=== PATIENT | female | born 1940 | race Two or more races ===

== ENCOUNTER 2025-05-11 07:48 | Inpatient (IN) | payer MEDICAID, OTHER ==
[2025-05-11] VITALS (16 sets, daily range): BP systolic 112–163; BP diastolic 44–114; PULSE 14–108; RESP 12–23; TEMP 97.9–102.4; O2SAT 92–100
[~2025-05-11] VITALS: Ht 149.9 cm; Wt 58.6 kg
[2025-05-11 08:30] LABS: Hematocrit 29.8 % (36.0-46.0); Hemoglobin 10.0 g/dL (12.2-16.2); Mean Corpuscular Hemoglobin 29.5 pg (28.0-32.0); Mean Corpuscular Volume 88.1 fL (80.0-100.0); Nucleated Red Blood Cells % 0.0 %
[2025-05-11 08:41] LABS: Chloride 100 mmol/L (98-107); Potassium 5.1 mmol/L (3.5-5.1)
[2025-05-11 08:42] LABS: Anion Gap 11 (5-15); Calcium 9.7 mg/dL (8.7-10.4)
[2025-05-11 08:44] LABS: Carbon Dioxide 20 mmol/L (20-31); Sodium 131 mmol/L (136-145)
--- NOTE | 2025-05-11 08:44 | ED.PDOC ---
GI ASSESSMENT HPI Comments 85 year old female with a Hx of DM, and HTN was BIB daughter for the c/c of diffuse and RUQ ABD pain w/ associated N/V. Daughter states that pt symptoms have been onset since 10pm last night, and has no alleviating factors at this time. Pt is also noted to have Bilateral Pedal Edema at this time. No other associated symptoms, modifiers, recent injuries or sick contacts present at this time. Chief Complaint: Abdominal Pain Time Seen by MD: 08:39 Reviewed Notes: Nurses Notes, Medications, Allergies Allergies: Coded Allergies: NO KNOWN ALLERGIES (Unverified , 05/11/25) Information Source: Patient, Relative (Child) Mode of Arrival: Ambulatory Timing: Hours Duration: Since onset, Hours Prehospital treatment: None Quality: Aching, Cramping, Sharp Vomitus: Watery Stool: Normal Recent: None Recent Hx of: Diabetes Pain Location: Diffuse, RUQ Modifying Factors: Exertion, Food, Position, Movement Associated sign and symptoms: Nausea, Vomiting, Abdominal Pain Past Medical History PAST MEDICAL HISTORY: DM, HTN Family History Family History: Unknown Social History Smoker: Non-Smoker Alcohol: Denies ETOH Use Drugs: Denies Drug Use Lives In: Home Constitutional: denies: chills, diaphoresis, fatigue, fever, malaise, sweats, weakness, others EENTM: denies: blurred vision, double vision, ear bleeding, ear discharge, ear drainage, ear pain, ear ringing, eye pain, eye redness, hearing loss, mouth pain, mouth swelling, nasal discharge, nose bleeding, nose congestion, nose pain , photophobia, tearing, throat pain, throat swelling, voice changes, others Respiratory: denies: cough, hemoptysis, orthopnea, SOB at rest, shortness of breath, SOB with excertion, stridor, wheezing, others Cardiovascular: denies: chest pain, dizzy spells, diaphoresis, Dyspnea on exertion, edema, irregular heart beat, left arm pain, lightheadedness, palpitations, PND, syncope, others Gastrointestinal: reports: abdominal pain, nausea, vomiting; denies: abdomen distended, blood streaked bowels, constipated, diarrhea, dysphagia, difficulty swallowing, hematemesis, melena, poor appetite, poor fluid intake, rectal bleeding, rectal pain, others Genitourinary: denies: abnormal vagina bleeding, burning, dyspareunia, dysuria, flank pain, frequency, hematuria, incontinence, pain, , vagina discharge, urgency, others Neurological: denies: dizziness, fainting, headache, left sided numbness, left sided weakness, numbness, paresthesia, pre-existing deficit, right sided nu mbness, right sided weakness, seizure, speech problems, tingling, tremors, weakness, others Musculoskeletal: denies: back pain, gout, joint pain, joint swelling, muscle pain, muscle stiffness, neck pain, others Integumetry: denies: bruises, change in color, change in hair/nails, dryness, laceration, lesions, lumps, rash, wounds, others Allergic/Immunocompromised: denies: Difficulty Healing, Frequent Infections, Hives, Itching, others Hematologic/Lymphatic: denies: anemia, blood clots, easy bleeding, easy bruising, swollen glands, others Endocrine: denies: excessive hunger, excessive sweating, excessive thirst, excessive urination, flushing, intolerance to cold, intolerance to heat, unexplained weight gain, unexplained weight loss, others Psychiatric: denies: anxiety, bipolar disorder, depression, hopeless, panic disorder, schizophrenia, sleepless, suicidal, others All Other Systems: Reviewed and Negative Physical Exam General Appearance: Moderate Distress, Normal HEENT: Normal ENT Inspection, Pharynx Normal, TMs Normal Neck: Full Range of Motion, Non-Tender, Normal, Normal Inspection Respiratory: Chest Non-Tender, Lungs Clear, No Accessory Muscle Use, No Respiratory Distress, Normal Breath Sounds Cardiovascular: No Edema, No JVD, No Murmur, No Gallop, Normal Peripheral Pulses, Regular Rate/Rhythm Breast Exam: Deferred Gastrointestinal: No Organomegaly, Non Tender, No Pulsatile Mass, Normal Bowel Sounds, Soft Genitalia: Deferred Pelvic: Deferred Rectal: Deferred Extremities: No calf tenderness, Normal capillary refill, Normal range of motion, Non-tender, Pedal edema Musculoskeletal : Apperance: Normal Neurologic: Alert, 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 Was a procedure done?: No GI differential Dx Differential Diagnosis: Bowel Obstruction, Cholangitis, Cholecystitis, Constipation, Diverticular disease, Esophagitis, Gastritis/PUD, Gastroenteritis, Hernia, Inflammatory BD, Ischemic Bowel, Ovarian cyst/torsion, Pancreatitis, Urinary Obstruction, UTI, Urolithiasis, Dehydration, Electrolyte Imbalance, Food Poisoning X-Ray, Labs, Meds, VS Vital Signs Date Time Temp Pulse Resp B/P (MAP) Pulse Ox O2 Delivery O2 Flow Rate FiO2 05/11/25 10:14 106/37 05/11/25 10:00 98.8 61 16 106/37 (60) 96 98.8 05/11/25 09:46 56 16 132/58 05/11/25 09:04 53 20 134/58 05/11/25 08:56 53 20 96 Room Air* 0 21 05/11/25 08:53 99.1 54 20 145/57 (86) 95 99.1 05/11/25 08:06 98.0 57 18 156/63 (94) 98 98.0 Lab Test 05/11/25 10:55 05/11/25 08:20 05/11/25 08:06 Range/Units Lactic Acid Level Pending White Blood Count 17.6 H 4.4-10.8 10^3/uL Red Blood Count 3.38 L 4.0-5.20 10^6/uL Hemoglobin 10.0 L 12.2-16.2 g/dL Hematocrit 29.8 L 36.0-46.0 % Mean Corpuscular Volume 88.1 80.0-100.0 fL Mean Corpuscular Hemoglobin 29.5 28.0-32.0 pg Mean Corpuscular Hemoglobin Concent 33.5 32.0-36.0 g/dL Red Cell Distribution Width 15.3 H 11.8-14.3 % Platelet Count 286 140-450 10^3/uL Mean Platelet Volume 7.8 6.9-10.8 fL Neutrophils (%) (Auto) 90.4 H 37.0-80.0 % Lymphocytes (%) (Auto) 3.3 L 10.0-50.0 % Monocytes (%) (Auto) 5.9 0.0-12.0 % Eosinophils (%) (Auto) 0.2 0.0-7.0 % Basophils (%) (Auto) 0.2 0.0-2.0 % Neutrophils # (Auto) 15.9 H 1.6-8.6 10 ^3/uL Lymphocytes # (Auto) 0.6 0.4-5.4 10 ^3/uL Monocytes # (Auto) 1.0 0-1.3 10 ^3/uL Eosinophils # (Auto) 0 0-0.8 10 ^3/uL Basophils # (Auto) 0 0-0.2 10 ^3/uL Nucleated Red Blood Cells 0.0 % Prothrombin Time 10.2 9.3-11.8 sec Prothrombin Time INR 0.96 0.9-1.15 Activated Partial Thromboplast Time 27.5 24.5-34.5 SEC Sodium Level 131 L 136-145 mmol/L Potassium Level 5.1 3.5-5.1 mmol/L Chloride Level 100 98-107 mmol/L Carbon Dioxide Level 20 20-31 mmol/L Anion Gap 11 5-15 Blood Urea Nitrogen 50 H 9-23 mg/dL Creatinine 2.69 H 0.550-1.02 mg/dL Glomerular Filtration Rate Calc 17 >90 mL/min BUN/Creatinine Ratio 18.6 10.0-20.0 Serum Glucose 124 H 74-106 mg/dL Calcium Level 9.7 8.7-10.4 mg/dL Urine Color Colorless Yellow Urine Clarity Turbid H Clear Urine pH 6.0 5.0-9.0 Urine Specific [place] 1.004 1.001-1.035 Urine Protein 1+ H Negative Urine Ketones Negative Negative Urine Blood 1+ H Negative /uL Urine Nitrite Negative Negative Urine Bilirubin Negative Negative Urine Urobilinogen Normal Negative mg/dL Urine Leukocyte Esterase 3+ Negative /uL Urine RBC 16 0 - 4 /hpf Urine WBC Clumps Present None Seen /hpf Urine Microscopic WBC 137 H 0-5 /HPF Urine Squamous Epithelial Cells Mod <5 /hpf Urine Bacteria Many H None Seen /hpf Urine Mucus Few None Seen Urine Glucose Normal Normal mg/dL Current Medications Medications (Trade) Dose Ordered Sig/Augustin Route Start Time Stop Time Status Last Admin Morphine Sulfate 2 mg ONCE ONCE IV 05/11/25 08:45 05/11/25 08:48 DC 05/11/25 09:04 Ondansetron HCl (Zofran) 4 mg ONCE ONCE IV 05/11/25 08:45 05/11/25 08:48 DC 05/11/25 09:03 Sodium Chloride 1,000 ml @ 1,000 mls/hr Q1H ONCE IV 05/11/25 08:45 05/11/25 09:44 DC 05/11/25 09:04 Vancomycin HCl 200 ml @ 200 mls/hr ONCE ONCE IV 05/11/25 09:00 05/11/25 09:59 DC 05/11/25 09:17 Sodium Chloride 1,000 ml @ 1,000 mls/hr Q1H ONCE IV 05/11/25 09:00 05/11/25 09:59 DC 05/11/25 09:55 Sodium Chloride 1,000 ml @ 150 mls/hr Q6H40M ONCE IV 05/11/25 09:00 05/11/25 15:39 05/11/25 11:05 Cefepime HCl 50 ml @ 50 mls/hr ONCE ONCE IV 05/11/25 09:30 05/11/25 10:29 DC 05/11/25 11:05 Furosemide (Lasix Injection) 20 mg ONCE ONCE IV 05/11/25 10:00 05/11/25 10:01 DC 05/11/25 10:14 PATIENT: NIA CONNOR ACCT: [id number] UNIT: [id number] : 1940 LOC: ER ROOM / BED: / AGE / SEX: 85 / F ADM STATUS: REG ER SERVICE [id number] ORDERING PHYSICIAN: JAELYN LOUIS MD PROCEDURE(s): CXRP - CHEST PORTABLE REASON: sob ORDER NUMBER(s): [id number], ACCESSION NUMBER(s): [id number] EXAM: XY CHEST PORTABLE HISTORY: sob COMPARISON: None TECHNIQUE: Portable AP view of the chest was performed. FINDINGS: There is mild interstitial prominence, greatest centrally. No pneumothorax or consolidative infiltrates. There is blunting of the left costophrenic angle. The heart is enlarged. IMPRESSION: 1. Cardiomegaly with mild interstitial prominence suggestive of CHF. 2. Blunting of the left costophrenic angle may be due to small pleural effusion or scarring. EXAM DESCRIPTION: CT CT AB PEL WO CON-NO ORAL OR IV CLINICAL HISTORY: colitis COMPARISON: None TECHNIQUE: CT abdomen and pelvis without IV contrast was performed. Coronal and sagittal MPR images were generated.CTDI/ DLP = 18.63 mGy / 919.64 mGy.cm Dose reduction technique with one or more of the following methods was performed: Automated exposure control, adjustment of the mA and/or kV according to patient size, use of iterative reconstruction technique FINDINGS: Lower chest: Bibasilar subsegmental atelectasis. Trace left pleural effusion. Coronary artery calcifications. Liver: Homogenous in attenuation. In the central hepatic dome there is a 3.5 x 3.6 cm hypodense lesion with large amount of calcification. Biliary: No calcified gallstones. No biliary ductal dilatation. Pancreas: No fat stranding or focal lesion. Spleen: Normal in size.. Adrenal glands: No nodularity. Kidneys: 13 mm calculus in the lower pole of the right kidney. Moderate right hydronephrosis with a 11 mm calculus in the mid right ureter. Severe left hydronephrosis with marked asymmetric left renal cortical thickening. 5mm calculus in the lower pole of the left kidney. 4 mm calculus in the proximal left ureter and an additional punctate calculus in the proximal left ureter. There is also a punctate calculus in the distal left ureter. 2.8cm exophytic hypodense lesion at the lower pole of the right kidney measuring slightly above fluid attenuation. Bladder: No bladder wall thickening. Air in the urinary bladder lumen, likely from recent instrumentation. Reproductive organs: Normal. Bowel: Mild wall thickening of the proximal descending colon adjacent to the fluid and gas collection. The small bowel demonstrates normal caliber and wall thickness. . Peritoneum: Posterior to the left kidney there is a 7.5 x 3.3 x 8.7 cm loculated fluid and gas collection which may communicate with the adjacent proximal descending colon. Vessels: Normal caliber abdominal aorta. Moderate to severe atherosclerotic calcifications.. Lymph nodes: No suspicious lymph nodes. Soft tissues: Unremarkable. . Osseous structures: No acute fracture or subluxation. No suspicious osseous lesions. Degenerative changes of the visualized thoracolumbar spine. IMPRESSION: 1. In the left upper quadrant posterior to the left kidney there is a 7.5 x 3.3 x 8.7 cm loculated fluid and gas collection with possible fistula to the ad jacent proximal descending colon. There is mild wall thickening of the descending colon at this region, suggesting inflammation. An underlying mass cannot be excluded 2. Moderate right hydronephrosis within 11 mm obstructing calculus in the mid right ureter. There is also a 13 mm non obstructive calculus in the right kidney. 3. Severe left hydronephrosis with marked renal cortical thickening suggesting chronic hydronephrosis. A few small calculi in the left kidney and ureter measuring up to 5 mm. 4. A 3.5 x 3.6 cm partially calcified lesion in the central liver, indeterminate. Recommend further evaluation with CT or MRI with IV contrast, liver protocol. 5. Moderate to severe atherosclerotic vascular disease. Coronary artery disease. Patient alert. Complaining of abdominal pain. Vitals stable. Answering questions. Kidney function elevated. WBC elevated. Hemoglobin anemia. Possible sepsis. Establish intravenous access. Was given fluids. Sepsis protocol. Possible CHF. Was given Lasix. Hold fluids. Time of 1ST Reevaluation: 09:10 Reevaluation 1ST: Unchanged Patient Education/Counseling: Diagnosis, Treatment, Need For Follow Up Family Education/Counseling: Diagnosis, Treatment, Need For Follow Up SEPSIS Sepsis Screen Date sepsis recognized/suspect: May 11, 2025 Time Sepsis recognized/suspect: 837 Recent Procedure: No On Antibiotic Therapy: No Respiratory Rate >20: No Heart Rate >90: No Temp<36 C (96.8 F) or >38.3 C: No SBP <90 or MAP <65 mmHG: No New Acute Mental Status Change: No Is the patient on CPAP, BIPAP,: No Physician Orders Chest Portable (05/11/25 08:59) Accucheck (05/11/25 08:59) Blood Culture (05/11/25 08:59) Cefepime 1gm/ 50ml (Maxipime 1gm/50ml) (05/11/25 22:00) Notify Md If Map <65 Or Bp<90 (05/11/25 08:59) If Map<65 Start Vasopressor (05/11/25 08:59) Sodium Chloride 0.9% (05/11/25 09:00) Ct Ab Pel Wo Con-No Oral Or Iv (05/11/25 09:50) Lactic Acid W/ Reflex Order (05/11/25 10:03) Vital Signs Date Time Temp Pulse Resp B/P (MAP) Pulse Ox O2 Delivery O2 Flow Rate FiO2 05/11/25 10:14 106/37 05/11/25 10:00 98.8 61 16 106/37 (60) 96 98.8 05/11/25 09:46 56 16 132/58 05/11/25 09:04 53 20 134/58 05/11/25 08:56 53 20 96 Room Air* 0 21 05/11/25 08:53 99.1 54 20 145/57 (86) 95 99.1 05/11/25 08:06 98.0 57 18 156/63 (94) 98 98.0 Laboratory Tests Test 05/11/25 08:20 05/11/25 10:55 White Blood Count 17.6 10^3/uL (4.4-10.8) H Lactic Acid Level Pending Medications Medications Dose Ordered Sig/Augustin Route Start Time Stop Time Status Last Admin Dose Admin Cefepime HCl 50 ml @ 50 mls/hr ONCE ONCE IV 05/11/25 09:30 05/11/25 10:29 DC 05/11/25 11:05 Furosemide 20 mg ONCE ONCE IV 05/11/25 10:00 05/11/25 10:01 DC 05/11/25 10:14 Morphine Sulfate 2 mg ONCE ONCE IV 05/11/25 08:45 05/11/25 08:48 DC 05/11/25 09:04 Ondansetron HCl 4 mg ONCE ONCE IV 05/11/25 08:45 05/11/25 08:48 DC 05/11/25 09:03 Sodium Chloride 1,000 ml @ 150 mls/hr Q6H40M ONCE IV 05/11/25 09:00 05/11/25 15:39 05/11/25 11:05 Sodium Chloride 1,000 ml @ 1,000 mls/hr Q1H ONCE IV 05/11/25 08:45 05/11/25 09:44 DC 05/11/25 09:04 Sodium Chloride 1,000 ml @ 1,000 mls/hr Q1H ONCE IV 05/11/25 09:00 05/11/25 09:59 DC 05/11/25 09:55 Vancomycin HCl 200 ml @ 200 mls/hr ONCE ONCE IV 05/11/25 09:00 05/11/25 09:59 DC 05/11/25 09:17 Departure 1 Departure Time of Disposition: 08:58 Impression: Primary Impression: CHF (congestive heart failure) Qualified Codes: I50.43 - Acute on chronic combined systolic (congestive) and diastolic (congestive) heart failure Additional Impression: Sepsis, unspecified organism Qualified Codes: A41.9 - Sepsis, unspecified organism Disposition: ADMITTED INPATIENT Admit to: Med Surg Condition: Guarded Critical Care Note Critical Care Time?: Yes (90 min-critical care time only) Critical care comment: Sepsis Stability Stability form required: No Heart Score Heart Score: Heart Score Response (Comments) Value History N/A 0 EKG N/A 0 Age N/A 0 Risk Factors N/A 0 Troponin N/A 0 Total 0 I personally scribed for JAELYN LOUIS MD ([email or web address]) on 05/11/25 at 08:43. Electronically submitted by Davon Altamirano ([email or web address]). I personally scribed for JAELYN LOUIS MD ([email or web address]) on 05/11/25 at 09:44. Electronically submitted by Davon Altamirano ([email or web address]). I personally scribed for JAELYN LOUIS MD ([email or web address]) on 05/11/25 at 11:20. Electronically submitted by Davon Altamirano ([email or web address]). JAELYN LOUIS MD May 11, 2025 08:43
[2025-05-11 08:47] LABS: BUN/Creatinine Ratio 18.6 (10.0-20.0); Blood Urea Nitrogen 50 mg/dL (9-23); Glucose 124 mg/dL (74-106)
[2025-05-11] MEDS: ONDANSETRON HCL 4 MG/2 ML VIAL IV ONE (09:03)
[2025-05-11] MEDS: MORPHINE SULFATE INJ 2 MG/ml SYRG IV ONE (09:04)
[2025-05-11] MEDS: SODIUM CHLORIDE 0.9% 1,000 ML IV ONE ×3 (09:04→11:05)
[2025-05-11] MEDS: VANCOMYCIN 1GM/200ML PM 200 ML IV ONE (09:17)
--- NOTE | 2025-05-11 09:26 | DVH ---
EXAM: XY CHEST PORTABLE HISTORY: sob COMPARISON: None TECHNIQUE: Portable AP view of the chest was performed. FINDINGS: There is mild interstitial prominence, greatest centrally. No pneumothorax or consolidative infiltrat es. There is blunting of the left costophrenic angle. The heart is enlarged. IMPRESSION: 1. Cardiomegaly with mild interstitial prominence suggestive of CHF. 2. Blunting of the left costophrenic angle may be due to small pleural effusion or scarring.
[2025-05-11 09:27] LABS: Urine Protein, UAD 1+ (Negative); Urine WBC Clumps PRESENT /hpf (None Seen)
[2025-05-11 09:42] LABS: INR 0.96 (0.9-1.15); Partial Thromboplastin Time 27.5 SEC (24.5-34.5); Prothrombin Time 10.2 sec (9.3-11.8)
[2025-05-11] MEDS: FUROSEMIDE 20 MG/2 ML VIAL IV ONE (10:14)
--- NOTE | 2025-05-11 10:44 | DVH ---
EXAM DESCRIPTION: CT CT AB PEL WO CON-NO ORAL OR IV CLINICAL HISTORY: colitis COMPARISON: None TECHNIQUE: CT abdomen and pelvis without IV contrast was performed. Coronal and sagittal MPR images were generat ed.CTDI/ DLP = 18.63 mGy / 919.64 mGy.cm Dose reduction technique with one or more of the following methods was performed: Automated exposure control, adjustment of the mA and/or kV according to patient size, use of iterative reconstruction te chnique FINDINGS: Lower chest: Bibasilar subsegmental atelectasis. Trace left pleural effusion. Coronary artery calcifi cations. Liver: Homogenous in attenuation. In the central hepatic dome there is a 3.5 x 3.6 cm hypodense lesio n with large amount of calcification. Biliary: No calcified gallstones. No biliary ductal dilatation. Pancreas: No fat stranding or focal lesion. Spleen: Normal in size.. Adrenal glands: No nodularity. Kidneys: 13 mm calculus in the lower pole of the right kidney. Moderate right hydronephrosis with a 1 1 mm calculus in the mid right ureter. Severe left hydronephrosis with marked asymmetric left renal c ortical thickening. 5mm calculus in the lower pole of the left kidney. 4 mm calculus in the proximal left ureter and an additional punctate calculus in the proximal left ureter. There is also a punctat e calculus in the distal left ureter. 2.8cm exophytic hypodense lesion at the lower pole of the righ t kidney measuring slightly above fluid attenuation. Bladder: No bladder wall thickening. Air in the urinary bladder lumen, likely from recent instrumenta tion. Reproductive organs: Normal. Bowel: Mild wall thickening of the proximal descending colon adjacent to the fluid and gas collection . The small bowel demonstrates normal caliber and wall thickness. . Peritoneum: Posterior to the left kidney there is a 7.5 x 3.3 x 8.7 cm loculated fluid and gas collec tion which may communicate with the adjacent proximal descending colon. Vessels: Normal caliber abdominal aorta. Moderate to severe atherosclerotic calcifications.. Lymph nodes: No suspicious lymph nodes. Soft tissues: Unremarkable. . Osseous structures: No acute fracture or subluxation. No suspicious osseous lesions. Degenerative c hanges of the visualized thoracolumbar spine. IMPRESSION: 1. In the left upper quadrant posterior to the left kidney there is a 7.5 x 3.3 x 8.7 cm loculated fl uid and gas collection with possible fistula to the adjacent proximal descending colon. There is mild wall thickening of the descending colon at this region, suggesting inflammation. An underlying mass cannot be excluded 2. Moderate right hydronephrosis within 11 mm obstructing calculus in the mid right ureter. There is also a 13 mm non obstructive calculus in the right kidney. 3. Severe left hydronephrosis with marked renal cortical thickening suggesting chronic hydronephrosis . A few small calculi in the left kidney and ureter measuring up to 5 mm. 4. A 3.5 x 3.6 cm partially calcified lesion in the central liver, indeterminate. Recommend further e valuation with CT or MRI with IV contrast, liver protocol. 5. Moderate to severe atherosclerotic vascular disease. Coronary artery disease.
[2025-05-11] MEDS: CEFEPIME 1GM/ 50ML 50 ML IV ONE (11:05)
[2025-05-11] MEDS ORDERED: ACETAMINOPHEN 325 MG TAB PO PRN (13:45)
[2025-05-11] MEDS ORDERED: NITROGLYCERIN 0.4 MG SL TAB SL PRN (13:45)
[2025-05-11] MEDS ORDERED: VANCOMYCIN PER PHARMACY 0 MG IV SCH (13:45)
[2025-05-11] MEDS ORDERED: ONDANSETRON HCL 4 MG/2 ML VIAL IV PRN (13:45)
[2025-05-11] MEDS ORDERED: MORPHINE SULFATE INJ 2 MG/ml SYRG IV PRN (13:45)
--- NOTE | 2025-05-11 13:50 | DVHINCON2 ---
Date of service: May 11, 2025 Referring Physician Debbi AUGUSTINE Reason for Consultation Acute kidney injury History of Present Illness Mrs. Mauro Pearce is a 85-year-old female who presented to the hospital with abdominal pain flank pain and nausea and vomiting. Her clinical course has been notable for diagnosis of kidney insufficiency with EGFR in the teens. Mild hyperkalemia. Current consultation was requested for ongoing surveillance of kidney function with clinical suspicion for volume depletion and finding of bilateral obstructive uropathy with ER evaluation. Patient was seen in the emergency department, had a family member at the bedside who is primarily Irish speaking. Patient was lying supine and currently in no acute distress. Most of the history was obtained through the chart. Past Medical History Hypertension Allergies: Coded Allergies: NO KNOWN ALLERGIES (Unverified , 05/11/25) Current Medications Current Medications Medications (Trade) Dose Ordered Sig/Augustin Route PRN Reason Start Time Stop Time Status Last Admin Cefepime HCl 50 ml @ 12.5 mls/hr HS IV 05/11/25 22:00 Review of Systems For review of systems unable to be obtained H&P Exam Vital Signs/I&O Vital Sign Date Time Temp Pulse Resp B/P (MAP) Pulse Ox O2 Delivery O2 Flow Rate FiO2 05/11/25 12:00 57 05/11/25 12:00 99.5 18 117/44 (68) 93 99.5 05/11/25 08:56 Room Air* 0 21 Physical Exam Gen: nad, lying supine heent: nc/at, mmm lungs: cta anteriorly cvs: no rub abd: soft, bowel sounds audible ext: no edema skin: no rash neuro: Somnolent Labs/Diagnostic Data Labs/Diagnostic Data Laboratory Tests Test 05/11/25 10:55 05/11/25 08:20 05/11/25 08:06 Range/Units Lactic Acid Level 1.0 0.4-2.0 mmol/L White Blood Count 17.6 H 4.4-10.8 10^3/uL Red Blood Count 3.38 L 4.0-5.20 10^6/uL Hemoglobin 10.0 L 12.2-16.2 g/dL Hematocrit 29.8 L 36.0-46.0 % Mean Corpuscular Volume 88.1 80.0-100.0 fL Mean Corpuscular Hemoglobin 29.5 28.0-32.0 pg Mean Corpuscular Hemoglobin Concent 33.5 32.0-36.0 g/dL Red Cell Distribution Width 15.3 H 11.8-14.3 % Platelet Count 286 140-450 10^3/uL Mean Platelet Volume 7.8 6.9-10.8 fL Neutrophils (%) (Auto) 90.4 H 37.0-80.0 % Lymphocytes (%) (Auto) 3.3 L 10.0-50.0 % Monocytes (%) (Auto) 5.9 0.0-12.0 % Eosinophils (%) (Auto) 0.2 0.0-7.0 % Basophils (%) (Auto) 0.2 0.0-2.0 % Neutrophils # (Auto) 15.9 H 1.6-8.6 10 ^3/uL Lymphocytes # (Auto) 0.6 0.4-5.4 10 ^3/uL Monocytes # (Auto) 1.0 0-1.3 10 ^3/uL Eosinophils # (Auto) 0 0-0.8 10 ^3/uL Basophils # (Auto) 0 0-0.2 10 ^3/uL Nucleated Red Blood Cells 0.0 % Prothrombin Time 10.2 9.3-11.8 sec Prothrombin Time INR 0.96 0.9-1.15 Activated Partial Thromboplast Time 27.5 24.5-34.5 SEC Sodium Level 131 L 136-145 mmol/L Potassium Level 5.1 3.5-5.1 mmol/L Chloride Level 100 98-107 mmol/L Carbon Dioxide Level 20 20-31 mmol/L Anion Gap 11 5-15 Blood Urea Nitrogen 50 H 9-23 mg/dL Creatinine 2.69 H 0.550-1.02 mg/dL Glomerular Filtration Rate Calc 17 >90 mL/min BUN/Creatinine Ratio 18.6 10.0-20.0 Serum Glucose 124 H 74-106 mg/dL Calcium Level 9.7 8.7-10.4 mg/dL Urine Color Colorless Yellow Urine Clarity Turbid H Clear Urine pH 6.0 5.0-9.0 Urine Specific [place] 1.004 1.001-1.035 Urine Protein 1+ H Negative Urine Ketones Negative Negative Urine Blood 1+ H Negative /uL Urine Nitrite Negative Negative Urine Bilirubin Negative Negative Urine Urobilinogen Normal Negative mg/dL Urine Leukocyte Esterase 3+ Negative /uL Urine RBC 16 0 - 4 /hpf Urine WBC Clumps Present None Seen /hpf Urine Microscopic WBC 137 H 0-5 /HPF Urine Squamous Epithelial Cells Mod <5 /hpf Urine Bacteria Many H None Seen /hpf Urine Mucus Few None Seen Urine Glucose Normal Normal mg/dL Assessment IMP: 1) Hemodynamically mediated AARTI/VMN possible prerenal state and obstructive uropathy. 2) CKD ? 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 - we will check serial chemistry panels, anticipate improvement in metabolic Derangements with conservative therapy. Thank you for the consultation. Plan discussed with: JOSE Liu MD May 11, 2025 13:50
--- NOTE | 2025-05-11 14:12 | DVHHP2 ---
History of Present Illness Reason for Visit: Abdominal pain History of Present Illness Meri Cardoso is an 85-year-old female with past medical history of hypertension, and diabetes, who came to the hospital for abdominal pain. The patient states the pain began last night about 2200 in her RUQ. She denies any pain, nausea, or vomiting, prior to last night. States she has noticed needing to go to the bathroom more frequently and having less urine, denies dysuria. Patient denies any knowledge of having kidney stones or having them in the past. Patient is from [place], she is here visiting family and scheduled to go home on Wednesday05/14/2025. Cardiovascular: HTN Endocrine: Diabetes Smoke: No ALCOHOL: none Drugs: None Lives: with Family Review of Systems Constitutional: Yes: Weakness; No: Fever, Chills, Sweats, Malaise, Other Eyes: No: Pain, Vision change, Conjunctivae inflammation, Eyelid inflammation, Other, Redness ENT: No: Ear pain, Ear discharge, Nose pain, Nose discharge, Nose congestion, Mouth pain, Mouth swelling, Throat pain, Throat swelling, Other Respiratory: No: Cough, Dry, Shortness of breath, SOB with excertion, Wheezing, Hemoptysis, Pleuritic Pain, Sputum, Wheezing, Other Cardiovascular: No: Chest Pain, Palpitations, Orthopnea, Paroxysmal Noc. Dyspnea, Edema, Lt Headedness, Other Gastrointestinal: Abdominal Pain; No: Nausea, Vomiting, Diarrhea, Constipation, Melena, Hematochezia, Other Genitourinary: No Dysuria; Frequency; No Incontinence, No Hematuria, No Retention; Other (less urine) Musculoskeletal: No: other, neck pain, shoulder pain, arm pain, back pain, hand pain, leg pain, foot pain Skin: No: Rash, Lesions, Jaundice, Bruising, Other Neurological: No: Weakness, Numbness, Incoordination, Change in speech, Confusion, Seizures, Other Allergies: Coded Allergies: NO KNOWN ALLERGIES (Unverified , 05/11/25) Medications Current Medications Medications Dose Ordered Sig/Augustin Route Start Time Stop Time Status Last Admin Dose Admin Cefepime HCl 50 ml @ 12.5 mls/hr HS IV 05/11/25 22:00 Acetaminophen/ Hydrocodone Bitart 1 tab Q4HP PRN PO 05/11/25 13:45 UNV Ondansetron HCl 4 mg Q4HP PRN IV 05/11/25 13:45 UNV Docusate Sodium 100 mg BIDPRN PRN PO 05/11/25 13:45 UNV Acetaminophen 650 mg Q6HP PRN PO 05/11/25 13:45 UNV Morphine Sulfate 2 mg Q4HPRN PRN IV 05/11/25 13:45 UNV Nitroglycerin 0.4 mg Q5MINP PRN SL 05/11/25 13:45 UNV Morphine Sulfate 2 mg Q30M PRN IV 05/11/25 13:45 UNV Vancomycin HCl 0 ml @ 0 mls/hr UD IV 05/11/25 13:45 UNV Sodium Bicarbonate 100 ml/Dextrose 1,100 ml @ 100 mls/hr Q11H IV 05/11/25 13:45 UNV Exam Vital Signs Vital Signs Date Time Temp Pulse Resp B/P (MAP) Pulse Ox O2 Delivery O2 Flow Rate FiO2 05/11/25 12:00 57 05/11/25 12:00 99.5 18 117/44 (68) 93 99.5 05/11/25 08:56 Room Air* 0 21 General Appearance: Alert, Oriented X3, Cooperative, moderate distress HEENT: Atraumatic, PERRLA Respiratory: Clear to auscultation, Normal air movement Cardiovascular: Regular rate, Normal S1, Normal S2, No murmurs Abdominal: Normal bowel sounds, Soft, Other (RUQ pain) Extremities: No clubbing, No cyanosis, No edema, Normal pulses Skin: No rashes, No breakdown, No significant lesion Neuro: Normal gait, Normal speech, Strength at 5/5 X4 ext, Normal tone Psych/Mental Status: Mental status NL, Mood NL Labs/Xrays Labs Test 05/11/25 10:55 05/11/25 08:20 05/11/25 08:06 Range/Units Lactic Acid Level 1.0 0.4-2.0 mmol/L White Blood Count 17.6 H 4.4-10.8 10^3/uL Red Blood Count 3.38 L 4.0-5.20 10^6/uL Hemoglobin 10.0 L 12.2-16.2 g/dL Hematocrit 29.8 L 36.0-46.0 % Mean Corpuscular Volume 88.1 80.0-100.0 fL Mean Corpuscular Hemoglobin 29.5 28.0-32.0 pg Mean Corpuscular Hemoglobin Concent 33.5 32.0-36.0 g/dL Red Cell Distribution Width 15.3 H 11.8-14.3 % Platelet Count 286 140-450 10^3/uL Mean Platelet Volume 7.8 6.9-10.8 fL Neutrophils (%) (Auto) 90.4 H 37.0-80.0 % Lymphocytes (%) (Auto) 3.3 L 10.0-50.0 % Monocytes (%) (Auto) 5.9 0.0-12.0 % Eosinophils (%) (Auto) 0.2 0.0-7.0 % Basophils (%) (Auto) 0.2 0.0-2.0 % Neutrophils # (Auto) 15.9 H 1.6-8.6 10 ^3/uL Lymphocytes # (Auto) 0.6 0.4-5.4 10 ^3/uL Monocytes # (Auto) 1.0 0-1.3 10 ^3/uL Eosinophils # (Auto) 0 0-0.8 10 ^3/uL Basophils # (Auto) 0 0-0.2 10 ^3/uL Nucleated Red Blood Cells 0.0 % Prothrombin Time 10.2 9.3-11.8 sec Prothrombin Time INR 0.96 0.9-1.15 Activated Partial Thromboplast Time 27.5 24.5-34.5 SEC Sodium Level 131 L 136-145 mmol/L Potassium Level 5.1 3.5-5.1 mmol/L Chloride Level 100 98-107 mmol/L Carbon Dioxide Level 20 20-31 mmol/L Anion Gap 11 5-15 Blood Urea Nitrogen 50 H 9-23 mg/dL Creatinine 2.69 H 0.550-1.02 mg/dL Glomerular Filtration Rate Calc 17 >90 mL/min BUN/Creatinine Ratio 18.6 10.0-20.0 Serum Glucose 124 H 74-106 mg/dL Calcium Level 9.7 8.7-10.4 mg/dL Urine Color Colorless Yellow Urine Clarity Turbid H Clear Urine pH 6.0 5.0-9.0 Urine Specific [place] 1.004 1.001-1.035 Urine Protein 1+ H Negative Urine Ketones Negative Negative Urine Blood 1+ H Negative /uL Urine Nitrite Negative Negative Urine Bilirubin Negative Negative Urine Urobilinogen Normal Negative mg/dL Urine Leukocyte Esterase 3+ Negative /uL Urine RBC 16 0 - 4 /hpf Urine WBC Clumps Present None Seen /hpf Urine Microscopic WBC 137 H 0-5 /HPF Urine Squamous Epithelial Cells Mod <5 /hpf Urine Bacteria Many H None Seen /hpf Urine Mucus Few None Seen Urine Glucose Normal Normal mg/dL EXAM: XY CHEST PORTABLE FINDINGS: There is mild interstitial prominence, greatest centrally. No pneumothorax or consolidative infiltrates. There is blunting of the left costophrenic angle. The heart is enlarged. IMPRESSION: 1. Cardiomegaly with mild interstitial prominence suggestive of CHF. 2. Blunting of the left costophrenic angle may be due to small pleural effusion or scarring. CT CT AB PEL WO CON-NO ORAL OR IV FINDINGS: Lower chest: Bibasilar subsegmental atelectasis. Trace left pleural effusion. Coronary artery calcifications. Liver: Homogenous in attenuation. In the central hepatic dome there is a 3.5 x 3.6 cm hypodense lesion with large amount of calcification. Biliary: No calcified gallstones. No biliary ductal dilatation. Pancreas: No fat stranding or focal lesion. Spleen: Normal in size.. Adrenal glands: No nodularity. Kidneys: 13 mm calculus in the lower pole of the right kidney. Moderate right hydronephrosis with a 11 mm calculus in the mid right ureter. Severe left hydronephrosis with marked asymmetric left renal cortical thickening. 5mm calculus in the lower pole of the left kidney. 4 mm calculus in the proximal left ureter and an additional punctate calculus in the proximal left ureter. There is also a punctate calculus in the distal left ureter. 2.8cm exophytic hypodense lesion at the lower pole of the right kidney measuring slightly above fluid attenuation. Bladder: No bladder wall thickening. Air in the urinary bladder lumen, likely from recent instrumentation. Reproductive organs: Normal. Bowel: Mild wall thickening of the proximal descending colon adjacent to the fluid and gas collection. The small bowel demonstrates normal caliber and wall thickness. . Peritoneum: Posterior to the left kidney there is a 7.5 x 3.3 x 8.7 cm loculated fluid and gas collection which may communicate with the adjacent proximal descending colon. Vessels: Normal caliber abdominal aorta. Moderate to severe atherosclerotic calcifications.. Lymph nodes: No suspicious lymph nodes. Soft tissues: Unremarkable. . Osseous structures: No acute fracture or subluxation. No suspicious osseous lesions. Degenerative changes of the visualized thoracolumbar spine. IMPRESSION: 1. In the left upper quadrant posterior to the left kidney there is a 7.5 x 3.3 x 8.7 cm loculated fluid and gas collection with possible fistula to the adjacent proximal descending colon. There is mild wall thickening of the descending colon at this region, suggesting inflammation. An underlying mass cannot be excluded 2. Moderate right hydronephrosis within 11 mm obstructing calculus in the mid right ureter. There is also a 13 mm non obstructive calculus in the right kidney. 3. Severe left hydronephrosis with marked renal cortical thickening suggesting chronic hydronephrosis. A few small calculi in the left kidney and ureter measuring up to 5 mm. 4. A 3.5 x 3.6 cm partially calcified lesion in the central liver, indeterminate. Recommend further evaluation with CT or MRI with IV contrast, liver protocol. 5. Moderate to severe atherosclerotic vascular disease. Coronary artery disease. Assessment/Plan Assessment/Plan Assessment: Hydronephrosis due to obstruction of ureter, Acute kidney injury, Possible fistula, Bilateral kidney stones, SIRS, Anemia, UTI, Diabetes, Hypertension, Plan: Admit to [facility], Surgical consult, Nephrology consult, Urology consult, IR consult, NPO, IV antibiotics, IV hydration, Pain management, Accu checks Q 6 hours with sliding scale, Home medications held at this time, Plan discussed with: Patient My Orders Orders - SONIDO RESTREPO Procedure Category Date Status Time *Dr. Amato Group CONS 05/11/25 Transmitted -[place] 11:48 * Radiologist Consult CONS 05/11/25 Transmitted 11:48 Admit ADMIT 05/11/25 Transmitted 13:38 Code Status CODE 05/11/25 Transmitted 13:38 Hydrocodone-Acet PHA 05/11/25 Logged 5/325mg Tab ([place] 13:45 Ondansetron Hcl PHA 05/11/25 Logged (Zofran) 13:45 Docusate Sodium PHA 05/11/25 Logged Capsule (Colace 13:45 Complete Blood Count LAB 05/12/25 Verified 04:00 Comprehensive LAB 05/12/25 Verified Metabolic Panel 04:00 Npo (Nothing By DIET 05/11/25 Transmitted Mouth) Diet Dinner Echo 2d Mode Cardiac US 05/11/25 Logged DOP 13:38 Condition: Serious [facility] 05/11/25 In Process 13:38 Acetaminophen Tablet [facility] 05/11/25 Logged (Tylenol Tablet) 13:45 Morphine Sulfate [facility] 05/11/25 Logged Injection 13:45 Nitroglycerin [facility] 05/11/25 Logged Sublingual (Ntrostat 13:45 Morphine Sulfate [facility] 05/11/25 Logged Injection 13:45 Stat Ekg For Chest [facility] 05/11/25 In Process Pain 13:38 Notify Md Of Changes [facility] 05/11/25 In Process From Base 13:38 Business Administration Professor For [facility] 05/11/25 In Process 24 Hours 13:38 Emergency Dysrhythmia [facility] 05/11/25 In Process Protocol 13:38 Rhythm Strips Once [facility] 05/11/25 In Process Every Shift 13:38 Oxygen By Nasal 05/11/25 Transmitted Cannula 13:38 Electrocardigram EKG 05/11/25 Logged 13:38 Vancomycin Per [facility] 05/11/25 Logged Pharmacy 13:45 D5w 5% (Dextrose 5%) [facility] 05/11/25 Logged W/Sodium Bicarb 50m 13:45 Date of Service: May 11, 2025 Billing Provider: SONIDO RESTREPO Common Visit Codes: [id number] INP/OBS CARE (MOD) SONIDO RESTREPO May 11, 2025 14:12
[2025-05-11] MEDS: VANCOMYCIN 1GM/250ML KIT 250 ML IV ONE (15:48)
[2025-05-11] MEDS: SODIUM BICARB 50mEq/50ml Vial 100 ML in D5W 5% 1,000 ML IV SCH (17:21)
[2025-05-11] MEDS: ACETAMINOPHEN 650 MG RECT SUPP PR PRN (17:52)
[2025-05-11] MEDS: InsuLIN REG 1unit/0.01ml Soln (100units/ml) SC SCH (18:00)
[2025-05-11 19:02] LABS: Albumin 3.2 g/dL (3.2-4.8); Alkaline Phosphatase 71 U/L (46-116); Anion Gap 12 (5-15); BUN/Creatinine Ratio 19.0 (10.0-20.0); Chloride 106 mmol/L (98-107)
[2025-05-11 19:03] LABS: Bilirubin, Total 0.6 mg/dL (0.2-1.0)
[2025-05-11] MEDS: MORPHINE SULFATE INJ 2 MG/ml SYRG IV PRN (19:06)
[2025-05-11 19:08] LABS: Alanine Aminotransferase 9 U/L (7-40); Blood Urea Nitrogen 52 mg/dL (9-23); Calcium 7.9 mg/dL (8.7-10.4); Carbon Dioxide 16 mmol/L (20-31); Glucose 187 mg/dL (74-106); Sodium 134 mmol/L (136-145); Total Protein 5.4 g/dL (5.7-8.2)
[2025-05-11 19:10] LABS: Potassium 5.6 mmol/L (3.5-5.1)
--- NOTE | 2025-05-11 19:40 | DVHNC2 ---
Procedure - ULTRASOUND-GUIDED LEFT SUBCLAVIAN INTERNAL JUGULAR CENTRAL VENOUS CANNULATION CPT Codes: 80845 (ultrasound guidance) 24256 (insertion of non-tunneled centrally inserted central venous catheter) 30875 (CXR interpretation) Global Risk Management Director: Gi Fair out time: 1924 Patient medications and allergies reviewed. The risks and benefits of the pr ocedure and the sedation options and risk were discussed with the patient's healthcare proxy. All questions were answered and informed consent was obtained. Patient identification and proposed procedure were verified prior to the procedure by the physician, and a nurse in the patient's room. The heart rate, respiratory rate, oxygen saturations, blood pressure, adequacy of pulmon kathy ventilation, and response to care were monitored throughout the procedure. The physical status of the patient was reassessed after the procedure. Date: 05/11/2025 PHYSICIAN: Ga Hooker PREOPERATIVE DIAGNOSIS: poor venous access POSTOPERATIVE DIAGNOSIS: Poor venous access PROCEDURE PERFORMED: Limited Ultrasound-guided LEFT SUBCLAVIAN jugular central line placement. ANESTHESIA: 2 mL of 1% lidocaine plain. ESTIMATED BLOOD LOSS: less than 5 mL. SPECIMENS: None. COMPLICATIONS: None. INDICATIONS FOR PROCEDURE: The patient is in need of large bore IV access for administration of fluids, including blood products and vasoactive drugs, possible transvenous cardiac pacing and CVP monitoring for hemodynamic instability. DESCRIPTION OF PROCEDURE IN DETAIL: The patient was lying in the Trendelenburg position with head turned 30 degrees away from the insertion site. The skin was thoroughly sponged with chlorhexidine and allowed to dry. All persons involved were shielded with hair nets, face masks and sterile gowns. With sterile-gloved hands the right neck area was draped with the large disposable sterile field provided in the pre-manufactured kit. The skin and subcutaneous tissues superficial to the LEFT SUBCLAVIAN vein were anesthetized with 2 mL of 1% lidocaine. The LEFT SUBCLAVIAN vein was identified on ultrasound using the linear ultrasound probe in the transverse orientation. The subclavian artery was identified and avoided utilizing color-flow. The subclavian vein was then placed in the center of the ultrasound field and compressed for patency. A movement artifact was identified as the needle was advanced through the skin and advanced toward the vessel. A real time hyperechoic signal revealed visualization of vascular needle entry into the lumen as blood was noted to flashback in the syringe. The needle was then held in place while the guide wire was advanced. The needle was then removed. Direct visualization of guide wire location within the vein was noted on ultrasound indicating proper placement and was document in the electronic medical record chart. A skin dilator was advanced over the guidewire and removed, and the triple-lumen catheter was then advanced over the guide wire into proper position. The guide wire was removed and discarded. The ports were aspirated which showed good blood return and then carefully flushed with normal saline. The catheter was stabilized and sutured to the skin with 2-0 silk at 2 anchor points. A sterile bio-patch and dressing was placed over the catheter, including the insertion site. The patient tolerated the procedure well. A chest x-ray was ordered for position confirmation. I reviewed the image immediately after it was taken at bedside. Post-procedure chest x-ray demonstrates the central line in the superior vena at level of right cavito- atrial junction and no evidence of any pneumothorax. An image recording of the procedure accompanies the chart. GA HOOKER MD May 11, 2025 19:40
[2025-05-11] MEDS: ACCU-CHEK COMFORT CURVE STRIP VI SCH (19:43)
--- NOTE | 2025-05-11 20:14 | DVH ---
EXAM: XY CHEST PORTABLE CLINICAL HISTORY: central line placement TECHNIQUE: Single AP view of the chest WID: COMPARISON: XY CHEST PORTABLE on DOS: 05/11/25 FINDINGS: Lines and tubes: There is a left subclavian central venous catheter with the tip projecting over the right atrium Chest: Cardiomegaly and pulmonary vascular congestion. Calcified plaque projects over the aortic arch. No pleural effusion, pneumothorax, or consolidation. The osseous structures are grossly intact. IMPRESSION: Cardiomegaly and pulmonary vascular congestion. Left subclavian central venous catheter with tip projecting over the right atrium. No pneumothorax.
--- NOTE | 2025-05-11 20:15 | DVHINCON2 ---
Date of service: May 11, 2025 History of Present Illness 85-year-old female with a history of diabetes and chronic kidney disease admitted secondary to abdominal pain without fevers, chills, nausea or vomiting. On admission patient was noted to have leukocytosis with fever. Patient's CT of the abdomen and pelvis showed bilateral hydronephrosis with what appears to be a possible abscess posterior to the left kidney. Currently patient denies any abdominal pain. Past Medical History Hypertension. Diabetes. Kidney disease Past Surgical History None. Family History Noncontributory Social History Denies alcohol, tobacco, IV drug use Allergies: Coded Allergies: NO KNOWN ALLERGIES (Unverified , 05/11/25) Current Medications Current Medications Medications (Trade) Dose Ordered Sig/Augustin Route PRN Reason Start Time Stop Time Status Last Admin Cefepime HCl 50 ml @ 12.5 mls/hr HS IV 05/11/25 22:00 Acetaminophen/ Hydrocodone Bitart ([place] 5/325MG Tab) 1 tab Q4HP PRN PO MODERATE PAIN (4-6 PAIN SCALE) 05/11/25 13:45 Ondansetron HCl (Zofran) 4 mg Q4HP PRN IV NAUSEA / VOMITING 05/11/25 13:45 Docusate Sodium (Colace Capsule) 100 mg BIDPRN PRN PO FOR CONSTIPATION 05/11/25 13:45 Acetaminophen (Tylenol Tablet) 650 mg Q6HP PRN PO PAIN SCALE 1-3 OR TEMP>100.4 05/11/25 13:45 05/11/25 17:47 DC Morphine Sulfate 2 mg Q4HPRN PRN IV SEVERE PAIN (7-10 PAIN SCALE) 05/11/25 13:45 05/11/25 19:06 Nitroglycerin (Ntrostat Sublingual) 0.4 mg Q5MINP PRN SL FOR CHEST PAIN 05/11/25 13:45 Morphine Sulfate 2 mg Q30M PRN IV FOR CHEST PAIN 05/11/25 13:45 Vancomycin HCl 0 ml @ 0 mls/hr UD IV 05/11/25 13:45 Sodium Bicarbonate 100 ml/Dextrose 1,100 ml @ 100 mls/hr Q11H IV 05/11/25 13:45 05/11/25 17:21 Diagnostic Test (Pha) (Accu-Chek Comfort Curve T) 1 strip Q6HR 05/11/25 18:00 05/11/25 19:43 Insulin Human Regular (InsuLIN R) Q6HR SC 05/11/25 18:00 Dextrose 50 ml UD PRN IV Blood Sugar LESS THAN 60 05/11/25 14:00 Acetaminophen (Tylenol Suppository) 650 mg Q6HP PRN NM PAIN SCALE 1-3 OR TEMP>100.4 05/11/25 17:15 05/11/25 17:52 Metronidazole 100 ml @ 100 mls/hr Q8H IV 05/11/25 18:00 05/11/25 17:52 Vital Signs Vital Signs Date Time Temp Pulse Resp B/P (MAP) Pulse Ox O2 Delivery O2 Flow Rate FiO2 05/11/25 19:06 70 22 126/51 05/11/25 17:52 101.1 05/11/25 14:00 93 05/11/25 08:56 Room Air* 0 21 Physical Exam GEN: Elderly female in no acute distress. HEENT: Normocephalic atraumatic. Moist mucous membranes. Anicteric sclerae. CV: RRR Respiratory: CTAB ABD: Soft. Nontender nondistended. CT of the abdomen and pelvis: In the left upper quadrant posterior to the left kidney there was a 7.5 x 3.3 x 8.7 cm loculated fluid and gas collection with possible fistula to the adjacent proximal descending colon. There was mild wall thickening of the descending colon at this region suggesting inflammation. Moderate right hydronephrosis with a obstructing calculus. Severe left hydronephrosis with small calculi. 3.5 x 3.6 cm partially calcified lesion in the central liver. Labs/Diagnostic Data Labs Test 05/11/25 19:07 05/11/25 18:35 05/11/25 08:20 05/11/25 08:06 Range/Units POC Glucose 175 H 70-106 mg/dl Sodium Level 134 L 136-145 mmol/L Potassium Level 5.6 *H 3.5-5.1 mmol/L Chloride Level 106 98-107 mmol/L Carbon Dioxide Level 16 L 20-31 mmol/L Anion Gap 12 5-15 Blood Urea Nitrogen 52 H 9-23 mg/dL Creatinine 2.73 H 0.550-1.02 mg/dL Glomerular Filtration Rate Calc 17 >90 mL/min BUN/Creatinine Ratio 19.0 10.0-20.0 Serum Glucose 187 H 74-106 mg/dL Lactic Acid Level 1.2 0.4-2.0 mmol/L Calcium Level 7.9 L 8.7-10.4 mg/dL Total Bilirubin 0.6 0.2-1.0 mg/dL Aspartate Amino Transferase (AST) 17 13-40 U/L Alanine Aminotransferase (ALT) 9 7-40 U/L Alkaline Phosphatase 71 46-116 U/L Total Protein 5.4 L 5.7-8.2 g/dL Albumin 3.2 3.2-4.8 g/dL White Blood Count 17.6 H 4.4-10.8 10^3/uL Red Blood Count 3.38 L 4.0-5.20 10^6/uL Hemoglobin 10.0 L 12.2-16.2 g/dL Hematocrit 29.8 L 36.0-46.0 % Mean Corpuscular Volume 88.1 80.0-100.0 fL Mean Corpuscular Hemoglobin 29.5 28.0-32.0 pg Mean Corpuscular Hemoglobin Concent 33.5 32.0-36.0 g/dL Red Cell Distribution Width 15.3 H 11.8-14.3 % Platelet Count 286 140-450 10^3/uL Mean Platelet Volume 7.8 6.9-10.8 fL Neutrophils (%) (Auto) 90.4 H 37.0-80.0 % Lymphocytes (%) (Auto) 3.3 L 10.0-50.0 % Monocytes (%) (Auto) 5.9 0.0-12.0 % Eosinophils (%) (Auto) 0.2 0.0-7.0 % Basophils (%) (Auto) 0.2 0.0-2.0 % Neutrophils # (Auto) 15.9 H 1.6-8.6 10 ^3/uL Lymphocytes # (Auto) 0.6 0.4-5.4 10 ^3/uL Monocytes # (Auto) 1.0 0-1.3 10 ^3/uL Eosinophils # (Auto) 0 0-0.8 10 ^3/uL Basophils # (Auto) 0 0-0.2 10 ^3/uL Nucleated Red Blood Cells 0.0 % Prothrombin Time 10.2 9.3-11.8 sec Prothrombin Time INR 0.96 0.9-1.15 Activated Partial Thromboplast Time 27.5 24.5-34.5 SEC Urine Color Colorless Yellow Urine Clarity Turbid H Clear Urine pH 6.0 5.0-9.0 Urine Specific [place] 1.004 1.001-1.035 Urine Protein 1+ H Negative Urine Ketones Negative Negative Urine Blood 1+ H Negative /uL Urine Nitrite Negative Negative Urine Bilirubin Negative Negative Urine Urobilinogen Normal Negative mg/dL Urine Leukocyte Esterase 3+ Negative /uL Urine RBC 16 0 - 4 /hpf Urine WBC Clumps Present None Seen /hpf Urine Microscopic WBC 137 H 0-5 /HPF Urine Squamous Epithelial Cells Mod <5 /hpf Urine Bacteria Many H None Seen /hpf Urine Mucus Few None Seen Urine Creatinine 11.55 L 30.0-125.0 mg/dL Urine Sodium 88 40-220 mmol/L Urine Glucose Normal Normal mg/dL Assessment 1. Bilateral hydronephrosis from obstructing calculi 2. Left upper quadrant fluid collection possible abscess posterior to the left kidney. Plan/Recommendation 1. Recommend broad-spectrum IV antibiotics 2. Patient is scheduled for bilateral ureteral stenting by [facility]rology [facility] 3. Recommend percutaneous drainage of left upper quadrant retroperitoneal fluid collection by IR on Wednesday. 4. Cardiology consultation for possible CHF and preoperative risks in case surgical intervention is necessary. However the chance of surgery in this situation is quite low if IR a successful. Plan discussed with: Patient, Daughter SHARONLEWIS MD May 11, 2025 20:15
--- NOTE | 2025-05-11 20:45 | DVHINCON2 ---
Date of service: May 11, 2025 Referring Physician [facility] Reason for Consultation bilateral obstruction kidneys,septicemia History of Present Illness 24 hour hx abdominal pain,signs of sepsis; CT shows bilateral ureteral stones with bilateral hydroureteronephrosis; left perirenal abscess Past Medical History known diabetic Past Surgical History na Allergies: Coded Allergies: NO KNOWN ALLERGIES (Unverified , 05/11/25) Current Medications Current Medications Medications (Trade) Dose Ordered Sig/Augustin Route PRN Reason Start Time Stop Time Status Last Admin Cefepime HCl 50 ml @ 12.5 mls/hr HS IV 05/11/25 22:00 Acetaminophen/ Hydrocodone Bitart ([place] 5/325MG Tab) 1 tab Q4HP PRN PO MODERATE PAIN (4-6 PAIN SCALE) 05/11/25 13:45 Ondansetron HCl (Zofran) 4 mg Q4HP PRN IV NAUSEA / VOMITING 05/11/25 13:45 Docusate Sodium (Colace Capsule) 100 mg BIDPRN PRN PO FOR CONSTIPATION 05/11/25 13:45 Acetaminophen (Tylenol Tablet) 650 mg Q6HP PRN PO PAIN SCALE 1-3 OR TEMP>100.4 05/11/25 13:45 05/11/25 17:47 DC Morphine Sulfate 2 mg Q4HPRN PRN IV SEVERE PAIN (7-10 PAIN SCALE) 05/11/25 13:45 05/11/25 19:06 Nitroglycerin (Ntrostat Sublingual) 0.4 mg Q5MINP PRN SL FOR CHEST PAIN 05/11/25 13:45 Morphine Sulfate 2 mg Q30M PRN IV FOR CHEST PAIN 05/11/25 13:45 Vancomycin HCl 0 ml @ 0 mls/hr UD IV 05/11/25 13:45 Sodium Bicarbonate 100 ml/Dextrose 1,100 ml @ 100 mls/hr Q11H IV 05/11/25 13:45 05/11/25 17:21 Diagnostic Test (Pha) (Accu-Chek Comfort Curve T) 1 strip Q6HR 05/11/25 18:00 05/11/25 19:43 Insulin Human Regular (InsuLIN R) Q6HR SC 05/11/25 18:00 Dextrose 50 ml UD PRN IV Blood Sugar LESS THAN 60 05/11/25 14:00 Acetaminophen (Tylenol Suppository) 650 mg Q6HP PRN [place] PAIN SCALE 1-3 OR TEMP>100.4 05/11/25 17:15 05/11/25 17:52 Metronidazole 100 ml @ 100 mls/hr Q8H IV 05/11/25 18:00 05/11/25 17:52 Review of Systems reviewed Vital Signs Vital Signs Date Time Temp Pulse Resp B/P (MAP) Pulse Ox O2 Delivery O2 Flow Rate FiO2 05/11/25 19:06 70 22 126/51 05/11/25 17:52 101.1 05/11/25 16:30 93 Room Air* 0 21 Labs/Diagnostic Data Labs Test 05/11/25 19:07 05/11/25 18:35 05/11/25 08:20 05/11/25 08:06 Range/Units POC Glucose 175 H 70-106 mg/dl Sodium Level 134 L 136-145 mmol/L Potassium Level 5.6 *H 3.5-5.1 mmol/L Chloride Level 106 98-107 mmol/L Carbon Dioxide Level 16 L 20-31 mmol/L Anion Gap 12 5-15 Blood Urea Nitrogen 52 H 9-23 mg/dL Creatinine 2.73 H 0.550-1.02 mg/dL Glomerular Filtration Rate Calc 17 >90 mL/min BUN/Creatinine Ratio 19.0 10.0-20.0 Serum Glucose 187 H 74-106 mg/dL Lactic Acid Level 1.2 0.4-2.0 mmol/L Calcium Level 7.9 L 8.7-10.4 mg/dL Total Bilirubin 0.6 0.2-1.0 mg/dL Aspartate Amino Transferase (AST) 17 13-40 U/L Alanine Aminotransferase (ALT) 9 7-40 U/L Alkaline Phosphatase 71 46-116 U/L Total Protein 5.4 L 5.7-8.2 g/dL Albumin 3.2 3.2-4.8 g/dL White Blood Count 17.6 H 4.4-10.8 10^3/uL Red Blood Count 3.38 L 4.0-5.20 10^6/uL Hemoglobin 10.0 L 12.2-16.2 g/dL Hematocrit 29.8 L 36.0-46.0 % Mean Corpuscular Volume 88.1 80.0-100.0 fL Mean Corpuscular Hemoglobin 29.5 28.0-32.0 pg Mean Corpuscular Hemoglobin Concent 33.5 32.0-36.0 g/dL Red Cell Distribution Width 15.3 H 11.8-14.3 % Platelet Count 286 140-450 10^3/uL Mean Platelet Volume 7.8 6.9-10.8 fL Neutrophils (%) (Auto) 90.4 H 37.0-80.0 % Lymphocytes (%) (Auto) 3.3 L 10.0-50.0 % Monocytes (%) (Auto) 5.9 0.0-12.0 % Eosinophils (%) (Auto) 0.2 0.0-7.0 % Basophils (%) (Auto) 0.2 0.0-2.0 % Neutrophils # (Auto) 15.9 H 1.6-8.6 10 ^3/uL Lymphocytes # (Auto) 0.6 0.4-5.4 10 ^3/uL Monocytes # (Auto) 1.0 0-1.3 10 ^3/uL Eosinophils # (Auto) 0 0-0.8 10 ^3/uL Basophils # (Auto) 0 0-0.2 10 ^3/uL Nucleated Red Blood Cells 0.0 % Prothrombin Time 10.2 9.3-11.8 sec Prothrombin Time INR 0.96 0.9-1.15 Activated Partial Thromboplast Time 27.5 24.5-34.5 SEC Urine Color Colorless Yellow Urine Clarity Turbid H Clear Urine pH 6.0 5.0-9.0 Urine Specific [place] 1.004 1.001-1.035 Urine Protein 1+ H Negative Urine Ketones Negative Negative Urine Blood 1+ H Negative /uL Urine Nitrite Negative Negative Urine Bilirubin Negative Negative Urine Urobilinogen Normal Negative mg/dL Urine Leukocyte Esterase 3+ Negative /uL Urine RBC 16 0 - 4 /hpf Urine WBC Clumps Present None Seen /hpf Urine Microscopic WBC 137 H 0-5 /HPF Urine Squamous Epithelial Cells Mod <5 /hpf Urine Bacteria Many H None Seen /hpf Urine Mucus Few None Seen Urine Creatinine 11.55 L 30.0-125.0 mg/dL Urine Sodium 88 40-220 mmol/L Urine Glucose Normal Normal mg/dL Assessment as above,bilateral ureteral stones with renal failure,septicemia Plan/Recommendation cytoscopy insertion of bilateral ureteral stents; IR to drain abscess Wednesday Plan discussed with: Patient, Daughter LAW VILLANUEVA MD May 11, 2025:45
[2025-05-11] MEDS ORDERED: PROPOFOL 10 MG/ML 20 ML IV ONE (20:49)
[2025-05-11] MEDS ORDERED: fentaNYL CITRATE 100 MCG/2 ML VL ONE (20:49)
[2025-05-11] MEDS ORDERED: MIDAZOLAM HCL 2MG/2ML 2ml VIAL (1mg/ml) ONE (20:49)
[2025-05-11] MEDS ORDERED: LIDOCAINE 2% (LOCAL ANESTH.) PF 5ml SDV ONE (20:49)
[2025-05-11] MEDS ORDERED: HYDROmorphone HCL 2 MG/ML VL/or syr IV PRN (21:30)
--- NOTE | 2025-05-11 22:00 | DVHOP2 ---
Operative Report - 2 Report Details Date: 05/11/25 Preop Diagnosis: bilateral ureteral stones,acute renal failure Postop Diagnosis: same Surgeon: Law Torres Anesthesiologist: Valerie Anesthesia: General Consent: The patient was informed of the risks and benefits of the procedure. These include but are not limited to complications of anesthesia, postoperative infection, incomplete relief of symptoms, recurrence of symptoms, damage to blood vessels, nerves and tendons, deep venous thrombosis, pulmonary embolism and possible need for repeat surgery in the future. Complications: no Estimated Blood Loss: no Indications for Surgery: septicemia, renal failure Name of Procedure Performed cystoscopy,insertion of bilateral ureteral stents Procedure Details Procedure Details: bladder neg; stents placed without problem 6 romanian 22 cm stents Condition Critical Disposition Acute Care Facility LAW TORRES MD May 11, 2025 22:00
[2025-05-11] MEDS: SODIUM BICARB 8.4% 50Meq/50ml SYR INJ IV ONE (23:46)
[2025-05-11] MEDS: DEXTROSE (50%) 50ML SYRG IV ONE (23:47)
[2025-05-11] MEDS: CALCIUM GLUC 1,000mg/50ml-NS 50 ML IV ONE (23:47)
[2025-05-11] MEDS: InsuLIN REG 1unit/0.01ml Soln (100units/ml) IV ONE (23:59)
[2025-05-12] VITALS (31 sets, daily range): BP systolic 101–146; BP diastolic 42–64; PULSE 52–76; RESP 12–24; TEMP 97.2–99; O2SAT 88–100
[2025-05-12] MEDS: CEFEPIME 1GM/ 50ML 50 ML IV SCH (00:03)
[2025-05-12] MEDS: ALBUTEROL SULF 2.5 MG/0.5ML(0.5%) NEB SOLN NEB ONE (00:08)
[2025-05-12 06:41] LABS: Mean Corpuscular Hemoglobin 29.0 pg (28.0-32.0); Nucleated Red Blood Cells % 0.0 %
--- NOTE | 2025-05-12 06:42 | DVHSR ---
APPROVED REPORT EXAM: Two-dimensional and M-mode echocardiogram with Doppler and color Doppler. Blood Pressure: 117/44 mmHg INDICATION Pre-Op lv function RISK FACTORS Height: 4'11, Weight: 137 DIMENSIONS LVDd3.9 (3.8-5.7cm)LA (2D)3.7 (1.9-4.0cm)Aortic Root3.4 (2.0-3.7cm) LVDs2.7 (2.5-4.0cm)LA (MM) (1.9-4.0cm)Aortic Cusp Exc1.9 (1.5-2.0cm) EF (%) 60.0 (55-70%)Rt. Atrium3.3 (1.9-4.0cm)Asc. Aorta cm IVSd1.0 (0.7-1.1cm)RV (D)4.0 (1.8-2.4cm) PWd1.0 (0.7-1.1cm) Mitral Valve MitralMitral Stenosis E wave1.19m/sMV Mean GR.mmHg A wave1.47m/sMV Peak GR.80mmHg E/A ratio0.82D MVAcm2 DECEL [id number] 1/2 Timems Aortic Valve Aortic ValveAortic Stenosis V11.07m/Kyleigh Mean GR.8mmHg V21.77m/Kyleigh Peak GR.12mmHg LVOT Diameter1.8 (1.8-2.4cm)Doppler AVA1.54cm2 Pulmonic Valve V20.80m/s Tricuspid Valve TR Velocity3.01m/s [id number] Conclusion lvef 60% borderlineLVH normal rv function no severe valve abnormalities noted
[2025-05-12 06:43] LABS: Hematocrit 23.4 % (36.0-46.0); Hemoglobin 7.6 g/dL (12.2-16.2); Mean Corpuscular Volume 88.7 fL (80.0-100.0)
[2025-05-12 06:51] LABS: Alkaline Phosphatase 60 U/L (46-116); Anion Gap 9 (5-15); BUN/Creatinine Ratio 15.9 (10.0-20.0); Bilirubin, Total 0.3 mg/dL (0.2-1.0); Carbon Dioxide 22 mmol/L (20-31); Chloride 104 mmol/L (98-107); Potassium 4.9 mmol/L (3.5-5.1)
[2025-05-12 06:58] LABS: Blood Urea Nitrogen 49 mg/dL (9-23); Glucose 117 mg/dL (74-106); Sodium 135 mmol/L (136-145)
[2025-05-12 06:59] LABS: Alanine Aminotransferase < 9 U/L (7-40); Albumin 3.0 g/dL (3.2-4.8); Calcium 8.2 mg/dL (8.7-10.4); Total Protein 5.2 g/dL (5.7-8.2)
[2025-05-12] MEDS: IOHEXOL 300 MG/ML 100ML BOTTLE IJ ONE (07:00)
[2025-05-12] MEDS: ONDANSETRON HCL 4 MG/2 ML VIAL IV ONE (07:00)
--- NOTE | 2025-05-12 10:06 | DVHPN2 ---
Progress Note - Dictate Date Seen: May 12, 2025 Has the PT tested + for MRSA If YES, has PT been informed?: No Medical Necessity Reason Pt with a Central, PICC or Fol: Yes Reason for painting catheter: Hong. Abd Surgery Medical Necessity Reason infection Subjective improved vital signs Vital Sign Date Time Temp Pulse Resp B/P (MAP) Pulse Ox O2 Delivery O2 Flow Rate FiO2 05/12/25 06:30 97.5 52 14 102/45 (64) 94 207.5 05/12/25 00:08 Nasal Cannula* 3 32 Total Intake and Output 05/11/25 05/11/25 05/12/25 15:00 23:00 07:00 Intake Total 2250 ml 200 ml 50 ml Output Total 325 ml 425 ml Balance 2250 ml -125 ml -375 ml medications Current Medications Medications Dose Ordered Sig/Augustin Route Start Time Stop Time Status Last Admin Dose Admin Cefepime HCl 50 ml @ 12.5 mls/hr HS IV 05/11/25 22:00 05/12/25 00:03 12.5 MLS/HR Acetaminophen/ Hydrocodone Bitart 1 tab Q4HP PRN PO 05/11/25 13:45 Ondansetron HCl 4 mg Q4HP PRN IV 05/11/25 13:45 Docusate Sodium 100 mg BIDPRN PRN PO 05/11/25 13:45 Morphine Sulfate 2 mg Q4HPRN PRN IV 05/11/25 13:45 05/11/25 19:06 2 MG Nitroglycerin 0.4 mg Q5MINP PRN SL 05/11/25 13:45 Morphine Sulfate 2 mg Q30M PRN IV 05/11/25 13:45 Vancomycin HCl 0 ml @ 0 mls/hr UD IV 05/11/25 13:45 Sodium Bicarbonate 100 ml/Dextrose 1,100 ml @ 100 mls/hr Q11H IV 05/11/25 13:45 05/11/25 17:21 100 MLS/HR Diagnostic Test (Pha) 1 strip Q6HR 05/11/25 18:00 05/12/25 06:00 1 STRIP Insulin Human Regular Q6HR SC 05/11/25 18:00 05/12/25 00:02 3 UNITS Dextrose 50 ml UD PRN IV 05/11/25 14:00 Acetaminophen 650 mg Q6HP PRN [place] 05/11/25 17:15 05/11/25 17:52 650 MG Metronidazole 100 ml @ 100 mls/hr Q8H IV 05/11/25 18:00 05/12/25 09:31 100 MLS/HR objective painting draining yellow urine laboratory and microbiology Laboratory Tests 05/12/25 04:45 Test 05/12/25 04:45 Range/Units Serum Glucose 117 H 74-106 mg/dL Assessment/Plan improved clinicallyas above,bilateral ureteral stones with renal failure,septicemia Plan discussed with: Patient, Daughter LAW VILLANUEVA MD May 12, 2025 10:06
--- NOTE | 2025-05-12 10:16 | DVHPN2 ---
Progress Note - Dictate Date Seen: May 12, 2025 Has the PT tested + for MRSA If YES, has PT been informed?: No Medical Necessity Reason Pt with a Central, PICC or Fol: Yes Reason for painting catheter: Hong. Abd Surgery Subjective Patient more awake and alert, patient and family member at bedside. She underwent urologic intervention with bilateral ureteral stent placement yesterday. vital signs Vital Sign Date Time Temp Pulse Resp B/P (MAP) Pulse Ox O2 Delivery O2 Flow Rate FiO2 05/12/25 06:30 97.5 52 14 102/45 (64) 94 207.5 05/12/25 00:08 Nasal Cannula* 3 32 Total Intake and Output 05/11/25 05/11/25 05/12/25 15:00 23:00 07:00 Intake Total 2250 ml 200 ml 50 ml Output Total 325 ml 425 ml Balance 2250 ml -125 ml -375 ml medications Current Medications Medications Dose Ordered Sig/Augustin Route Start Time Stop Time Status Last Admin Dose Admin Cefepime HCl 50 ml @ 12.5 mls/hr HS IV 05/11/25 22:00 05/12/25 00:03 12.5 MLS/HR Acetaminophen/ Hydrocodone Bitart 1 tab Q4HP PRN PO 05/11/25 13:45 Ondansetron HCl 4 mg Q4HP PRN IV 05/11/25 13:45 Docusate Sodium 100 mg BIDPRN PRN PO 05/11/25 13:45 Morphine Sulfate 2 mg Q4HPRN PRN IV 05/11/25 13:45 05/11/25 19:06 2 MG Nitroglycerin 0.4 mg Q5MINP PRN SL 05/11/25 13:45 Morphine Sulfate 2 mg Q30M PRN IV 05/11/25 13:45 Vancomycin HCl 0 ml @ 0 mls/hr UD IV 05/11/25 13:45 Diagnostic Test (Pha) 1 strip Q6HR 05/11/25 18:00 05/12/25 06:00 1 STRIP Insulin Human Regular Q6HR SC 05/11/25 18:00 05/12/25 00:02 3 UNITS Dextrose 50 ml UD PRN IV 05/11/25 14:00 Acetaminophen 650 mg Q6HP PRN [place] 05/11/25 17:15 05/11/25 17:52 650 MG Metronidazole 100 ml @ 100 mls/hr Q8H IV 05/11/25 18:00 05/12/25 09:31 100 MLS/HR objective Gen: nad heent: nc/at, mmm lungs: cta anteriorly cvs: no rub abd: soft, bowel sounds audible ext: no edema skin: no rash neuro: alert and oriented laboratory and microbiology Laboratory Tests 05/12/25 04:45 Test 05/12/25 04:45 Range/Units Serum Glucose 117 H 74-106 mg/dL Assessment/Plan IMP: 1) Hemodynamically mediated AARTI/VMN possible prerenal state and obstructive uropathy. 2) CKD ? - baseline creatinine unknown to this pattern chart writer 3) bilateral nephrolithiasis with bilateral obstructive uropathy 4) history of hypertension 5) reported intractable nausea vomiting REC: - we will continue with IV fluids using normal saline - plan to discontinue bicarb drip - we will continue with serial chemistry panels. - anticipate improvement in kidney function with conservative means. Plan discussed with: Patient, Other JOSE TESFAYE MD May 12, 2025 10:16
--- NOTE | 2025-05-12 10:18 | DVHINCON2 ---
Date Seen: May 12, 2025 Referring Physician MD Thais Reason for Consultation Cardiomegaly and cardiac risk stratification History of Present Illness This is an 85-year-old [place]ic-speaking female who presents to the emergency room with chief complaint of abdominal pain, nausea, vomiting and bilateral flank pain for two days prior to emergency room arrival. The patient came to the emergency room for further evaluation. Cardiology has been consulted at this time for cardiomegaly and cardiac risk stratification. Imaging has revealed a left perirenal abscess and bilateral hydronephrosis from obstructing calculi. The patient underwent bilateral ureteral stents and is now pending IR intervention for the perirenal abscess. The surgical team would like cardiac risk stratification if Interventional Radiology unable drain abscess. Initial twelve lead electrocardiogram reveals normal sinus rhythm without any significant ST segment changes. No troponin levels drawn during this admission. The patient denies any cardiac symptoms such as chest pain, palpitations, shortness of breath, etc. Significant past medical history includes hypertension and type 2 diabetes mellitus. She denies any previous cardiac history or cardiac workup in the past. Past Medical History Past medical history reviewed. No other significant than mentioned above. Past Surgical History Hemorrhoidectomy Family History Family history reviewed. Social History Denies the use of tobacco, alcohol or illicit drugs. Allergies: Coded Allergies: NO KNOWN ALLERGIES (Unverified , 05/11/25) Home Meds Home medications reviewed. Current Medications Current Medications Medications (Trade) Dose Ordered Sig/Augustin Route PRN Reason Start Time Stop Time Status Last Admin Cefepime HCl 50 ml @ 12.5 mls/hr HS IV 05/11/25 22:00 05/12/25 00:03 Acetaminophen/ Hydrocodone Bitart ([place] 5/325MG Tab) 1 tab Q4HP PRN PO MODERATE PAIN (4-6 PAIN SCALE) 05/11/25 13:45 Ondansetron HCl (Zofran) 4 mg Q4HP PRN IV NAUSEA / VOMITING 05/11/25 13:45 Docusate Sodium (Colace Capsule) 100 mg BIDPRN PRN PO FOR CONSTIPATION 05/11/25 13:45 Acetaminophen (Tylenol Tablet) 650 mg Q6HP PRN PO PAIN SCALE 1-3 OR TEMP>100.4 05/11/25 13:45 05/11/25 17:47 DC Morphine Sulfate 2 mg Q4HPRN PRN IV SEVERE PAIN (7-10 PAIN SCALE) 05/11/25 13:45 05/11/25 19:06 Nitroglycerin (Ntrostat Sublingual) 0.4 mg Q5MINP PRN SL FOR CHEST PAIN 05/11/25 13:45 Morphine Sulfate 2 mg Q30M PRN IV FOR CHEST PAIN 05/11/25 13:45 Vancomycin HCl 0 ml @ 0 mls/hr UD IV 05/11/25 13:45 Sodium Bicarbonate 100 ml/Dextrose 1,100 ml @ 100 mls/hr Q11H IV 05/11/25 13:45 05/12/25 10:08 DC 05/11/25 17:21 Diagnostic Test (Pha) (Accu-Chek Comfort Curve T) 1 strip Q6HR 05/11/25 18:00 05/12/25 06:00 Insulin Human Regular (InsuLIN R) Q6HR SC 05/11/25 18:00 05/12/25 00:02 Dextrose 50 ml UD PRN IV Blood Sugar LESS THAN 60 05/11/25 14:00 Acetaminophen (Tylenol Suppository) 650 mg Q6HP PRN [place] PAIN SCALE 1-3 OR TEMP>100.4 05/11/25 17:15 05/11/25 17:52 Metronidazole 100 ml @ 100 mls/hr Q8H IV 05/11/25 18:00 05/12/25 09:31 Hydromorphone HCl (Dilaudid Injection) 0.25 mg Q10M PRN IV MODERATE PAIN (4-6 PAIN SCALE) 05/11/25 21:30 05/11/25 22:01 DC Review of Systems Constitutional: No symptom reported Ears, Nose, & Throat: No symptom reported Eyes: No symptom reported Neurological: No symptoms reported Pulmonary/Respiratory: No symptoms reported Cardiovascular: No symptom reported Gastrointestinal: Abdominal pain, nausea, vomiting Genitourinary: Flank pain Musculoskeletal: No symptom reported Skin: No symptom reported Psychiatric: No symptom reported Endocrine: No symptom reported Hematologic/Lymphatic: No symptom reported Vital Signs Vital Signs Date Time Temp Pulse Resp B/P (MAP) Pulse Ox O2 Delivery O2 Flow Rate FiO2 05/12/25 06:30 97.5 52 14 102/45 (64) 94 207.5 05/12/25 00:08 Nasal Cannula* 3 32 Physical Exam General Appearance: Cooperative. Well-developed. Well-nourished. No acute distress. Pulmonary/Respiratory: Clear, bilateral breaths sounds. Cardiovascular/Chest: Regular rate and rhythm. Peripheral Pulses: 2+ Radial (R). 2+ Radial (L). 2+ Pedal (R). 2+ Pedal (L) Abdominal Exam: Normal bowel sounds. Ankle Exam: Negative ankle edema Lower extremities: Negative lower extremity edema Neuro/Mental Status: A/OX4, coherent. Thoughts/Psych: Normal thought pattern. Appropriate mood and affect. Good judgment and insight. Appearance: No acute distress. Skin Exam: Normal inspection. Normal color. Warm and dry. Labs/Diagnostic Data Labs Test 05/12/25 06:44 05/12/25 04:45 05/11/25 18:35 05/11/25 08:20 Range/Units POC Glucose 93 70-106 mg/dl White Blood Count 19.7 H 4.4-10.8 10^3/uL Red Blood Count 2.64 L 4.0-5.20 10^6/uL Hemoglobin 7.6 #L 12.2-16.2 g/dL Hematocrit 23.4 #L 36.0-46.0 % Mean Corpuscular Volume 88.7 80.0-100.0 fL Mean Corpuscular Hemoglobin 29.0 28.0-32.0 pg Mean Corpuscular Hemoglobin Concent 32.7 32.0-36.0 g/dL Red Cell Distribution Width 15.6 H 11.8-14.3 % Platelet Count 170 140-450 10^3/uL Mean Platelet Volume 8.9 6.9-10.8 fL Neutrophils (%) (Auto) 87.1 H 37.0-80.0 % Lymphocytes (%) (Auto) 5.8 L 10.0-50.0 % Monocytes (%) (Auto) 6.7 0.0-12.0 % Eosinophils (%) (Auto) 0.2 0.0-7.0 % Basophils (%) (Auto) 0.2 0.0-2.0 % Neutrophils # (Auto) 17.2 H 1.6-8.6 10 ^3/uL Lymphocytes # (Auto) 1.1 0.4-5.4 10 ^3/uL Monocytes # (Auto) 1.3 0-1.3 10 ^3/uL Eosinophils # (Auto) 0 0-0.8 10 ^3/uL Basophils # (Auto) 0 0-0.2 10 ^3/uL Nucleated Red Blood Cells 0.0 % Sodium Level 135 L 136-145 mmol/L Potassium Level 4.9 3.5-5.1 mmol/L Chloride Level 104 98-107 mmol/L Carbon Dioxide Level 22 20-31 mmol/L Anion Gap 9 5-15 Blood Urea Nitrogen 49 H 9-23 mg/dL Creatinine 3.08 H 0.550-1.02 mg/dL Glomerular Filtration Rate Calc 14 >90 mL/min BUN/Creatinine Ratio 15.9 10.0-20.0 Serum Glucose 117 H 74-106 mg/dL Calcium Level 8.2 L 8.7-10.4 mg/dL Phosphorus Level 5.3 H 2.4-5.1 mg/dL Total Bilirubin 0.3 0.2-1.0 mg/dL Aspartate Amino Transferase (AST) 14 13-40 U/L Alanine Aminotransferase (ALT) < 9 7-40 U/L Alkaline Phosphatase 60 46-116 U/L Total Protein 5.2 L 5.7-8.2 g/dL Albumin 3.0 L 3.2-4.8 g/dL Random Vancomycin Level 21.5 H 5-10 ug/mL Lactic Acid Level 1.2 0.4-2.0 mmol/L Prothrombin Time 10.2 9.3-11.8 sec Prothrombin Time INR 0.96 0.9-1.15 Activated Partial Thromboplast Time 27.5 24.5-34.5 SEC Test 05/11/25 08:06 Range/Units Urine Color Colorless Yellow Urine Clarity Turbid H Clear Urine pH 6.0 5.0-9.0 Urine Specific [place] 1.004 1.001-1.035 Urine Protein 1+ H Negative Urine Ketones Negative Negative Urine Blood 1+ H Negative /uL Urine Nitrite Negative Negative Urine Bilirubin Negative Negative Urine Urobilinogen Normal Negative mg/dL Urine Leukocyte Esterase 3+ Negative /uL Urine RBC 16 0 - 4 /hpf Urine WBC Clumps Present None Seen /hpf Urine Microscopic WBC 137 H 0-5 /HPF Urine Squamous Epithelial Cells Mod <5 /hpf Urine Bacteria Many H None Seen /hpf Urine Mucus Few None Seen Urine Creatinine 11.55 L 30.0-125.0 mg/dL Urine Sodium 88 40-220 mmol/L Urine Glucose Normal Normal mg/dL Microbiology Date/Time Source Procedure Growth Status 05/11/25 18:30 Urine - [place] Urine Culture - Preliminary Resulted 05/11/25 09:11 Blood Blood Culture - Preliminary NO GROWTH AFTER 24 HOURS OF INCUBATION. Resulted Assessment Preprocedural cardiovascular examination Ruled out congestive heart failure Hypertension Bilateral hydronephrosis from obstructing calculi status post ureteral stent placement Possible perirenal abscess versus mass Central liver lesion Type 2 diabetes mellitus Plan/Recommendation We will continue with the following plan/recommendations (Dr. Gastelum): Case discussed with . Transthoracic echocardiogram reveals EF of 60%. [place] heart failure diagnostic criteria: Negative. Revised cardiac risk index (Robert criteria): 1 point (1.1% risk of major cardiac event). The patient has no underlying history of congestive heart failure or equivalent of cardiac symptoms. Prior to emergency room arrival, the patient reports a good functio nal capacity at home. Per Cardiology standpoint, the patient is at an acceptable risk for moderate risk surgery. There is no additional cardiac workup indicated prior to surgery. Thank you for allowing us to care for this patient. Please call with any questions or concerns. Critical care time spent: 44 minutes This medical document was created using an electronic medical record system with voice recognition software and computerized dictation system. Although this document has been carefully reviewed, there might still be some phonetic and typographical errors. Occasional wrong-word or ``sound-alike substitutions may have occurred due to the inherent limitations of voice recognition software. These areas are purely typographical due to imperfections of the software programs and do not reflect any compromise in the patient's medical care. Please read the chart carefully and recognize, using context, where these substitutions have occurred. Plan discussed with: Patient NYHA Physical activity limitations: NA Date of Service: May 12, 2025 Billing Provider: MICHELLE CLAY Cardiology Common Codes: 53047-[place] INP/OBS CARE (High) Cardiology Consultation Codes: 59943-PDTLLCNHW CONSULT <45MIN MICHELLE CLAY May 12, 2025 10:18
[2025-05-12] MEDS: SODIUM CHLORIDE 0.9% 500 ML IV ONE (11:38)
--- NOTE | 2025-05-12 12:04 | DVHPN2 ---
Progress Note - Dictate Date Seen: May 12, 2025 Has the PT tested + for MRSA If YES, has PT been informed?: No Medical Necessity Reason Pt with a Central, PICC or Fol: Yes Reason for painting catheter: Hong. Abd Surgery Subjective E: bilateral ureteral stents placed. c/o min suprapubic pain but otherwise doing ok. vital signs Vital Sign Date Time Temp Pulse Resp B/P (MAP) Pulse Ox O2 Delivery O2 Flow Rate FiO2 05/12/25 08:00 53 13 98 Nasal Cannula* 2 28 05/12/25 06:30 97.5 102/45 (64) 207.5 Total Intake and Output 05/11/25 05/11/25 05/12/25 15:00 23:00 07:00 Intake Total 2250 ml 200 ml 50 ml Output Total 325 ml 425 ml Balance 2250 ml -125 ml -375 ml medications Current Medications Medications Dose Ordered Sig/Augustin Route Start Time Stop Time Status Last Admin Dose Admin Cefepime HCl 50 ml @ 12.5 mls/hr HS IV 05/11/25 22:00 05/12/25 00:03 12.5 MLS/HR Acetaminophen/ Hydrocodone Bitart 1 tab Q4HP PRN PO 05/11/25 13:45 Ondansetron HCl 4 mg Q4HP PRN IV 05/11/25 13:45 Docusate Sodium 100 mg BIDPRN PRN PO 05/11/25 13:45 Morphine Sulfate 2 mg Q4HPRN PRN IV 05/11/25 13:45 05/11/25 19:06 2 MG Nitroglycerin 0.4 mg Q5MINP PRN SL 05/11/25 13:45 Morphine Sulfate 2 mg Q30M PRN IV 05/11/25 13:45 Vancomycin HCl 0 ml @ 0 mls/hr UD IV 05/11/25 13:45 Diagnostic Test (Pha) 1 strip Q6HR 05/11/25 18:00 05/12/25 11:45 1 STRIP Insulin Human Regular Q6HR SC 05/11/25 18:00 05/12/25 00:02 3 UNITS Dextrose 50 ml UD PRN IV 05/11/25 14:00 Acetaminophen 650 mg Q6HP PRN [place] 05/11/25 17:15 05/11/25 17:52 650 MG Metronidazole 100 ml @ 100 mls/hr Q8H IV 05/11/25 18:00 05/12/25 09:31 100 MLS/HR Sodium Chloride 1,000 ml @ 125 mls/hr Q8H IV 05/12/25 10:30 objective GEN: NAD. alert. ABD: soft. very min suprapubic TTP w/o G/R. ND laboratory and microbiology Laboratory Tests 05/12/25 04:45 Test 05/12/25 04:45 Range/Units Serum Glucose 117 H 74-106 mg/dL Assessment/Plan A: 1. Bilateral hydronephrosis from obstructing calculi s/p ureteral stent placement. 2. Left upper quadrant fluid collection possible abscess vs fluid colleciton posterior to the left kidney. P: 1. percutaneous drainage by IR on Wednesday for LUQ fluid collection Plan discussed with: Patient, Daughter SHANNEN HERRERAJose Martin MD May 12, 2025 12:04
[2025-05-12] MEDS: SODIUM CHLORIDE 0.9% 1,000 ML IV SCH (12:06)
--- NOTE | 2025-05-12 13:04 | DVHPN2 ---
Subjective History of Present Illness Meri Cardoso is an 85-year-old female with past medical history of hypertension, and diabetes, who came to the hospital for abdominal pain. The patient states the pain began last night about 2200 in her RUQ. She denies any pain, nausea, or vomiting, prior to last night. States she has noticed needing to go to the bathroom more frequently and having less urine, denies dysuria. Patient denies any knowledge of having kidney stones or having them in the past. Patient is from [place], she is here visiting family and scheduled to go home on Wednesday05/14/2025. Reviewed: H&P Changes from previous H/P or p: No Changes General: Per HPI Eyes: No Pain, No Vision change, No Conjunctivae inflammation, No Eyelid inflammation, No Other, No Redness ENT: No Ear pain, No Ear discharge, No Nose pain, No Nose discharge, No Nose congestion, No Mouth pain, No Mouth swelling, No Throat pain, No Throat swelling, No Other Cardiovascular: No Chest Pain, No Palpitations, No Orthopnea, No Paroxysmal Noc. Dyspnea, No Edema, No Lt Headedness, No Other Respiratory: No Cough, No Dry, No Shortness of breath, No SOB with excertion, No Wheezing, No Hemoptysis, No Pleuritic Pain, No Sputum, No Other Gastrointestinal: No Nausea, No Vomiting; Abdominal Pain; No Diarrhea, No Constipation, No Melena, No Hematochezia, No Other Genitourinary: No Dysuria; Frequency; No Incontinence, No Hematuria, No Retention; Other (less urine) Musculoskeletal: No other, No neck pain, No shoulder pain, No arm pain, No back pain, No hand pain, No leg pain, No foot pain Skin: No Rash, No Lesions, No Jaundice, No Bruising, No Other Objective Vitals Vital Signs Date Time Temp Pulse Resp B/P (MAP) Pulse Ox O2 Delivery O2 Flow Rate FiO2 05/12/25 08:00 53 13 98 Nasal Cannula* 2 28 05/12/25 06:30 97.5 102/45 (64) 207.5 Intake/Output Intake and Output 05/12/25 07:00 Intake Total 2500 ml Output Total 750 ml Balance 1750 ml Intake Oral 50 ml IV Total 2450 ml Output Urine Total 750 ml # Voids 1 Exam General Appearance: Alert, Oriented X3, Cooperative, moderate distress HEENT: Atraumatic, PERRLA Respiratory: Clear to auscultation, Normal air movement Cardiovascular: Regular rate, Normal S1, Normal S2, No murmurs Abdominal: Normal bowel sounds, Soft, Other (RUQ pain) Extremities: No clubbing, No cyanosis, No edema, Normal pulses Skin: No rashes, No breakdown, No significant lesion Neuro: Normal gait, Normal speech, Strength at 5/5 X4 ext, Normal tone Psych/Mental Status: Mental status NL, Mood NL Medications Current Medications Medications Dose Ordered Sig/Augustin Route Start Time Stop Time Status Last Admin Dose Admin Cefepime HCl 50 ml @ 12.5 mls/hr HS IV 05/11/25 22:00 05/12/25 00:03 12.5 MLS/HR Acetaminophen/ Hydrocodone Bitart 1 tab Q4HP PRN PO 05/11/25 13:45 Ondansetron HCl 4 mg Q4HP PRN IV 05/11/25 13:45 Docusate Sodium 100 mg BIDPRN PRN PO 05/11/25 13:45 Morphine Sulfate 2 mg Q4HPRN PRN IV 05/11/25 13:45 05/11/25 19:06 2 MG Nitroglycerin 0.4 mg Q5MINP PRN SL 05/11/25 13:45 Morphine Sulfate 2 mg Q30M PRN IV 05/11/25 13:45 Vancomycin HCl 0 ml @ 0 mls/hr UD IV 05/11/25 13:45 Diagnostic Test (Pha) 1 strip Q6HR 05/11/25 18:00 05/12/25 11:45 1 STRIP Insulin Human Regular Q6HR SC 05/11/25 18:00 05/12/25 12:04 3 UNITS Dextrose 50 ml UD PRN IV 05/11/25 14:00 Acetaminophen 650 mg Q6HP PRN NC 05/11/25 17:15 05/11/25 17:52 650 MG Metronidazole 100 ml @ 100 mls/hr Q8H IV 05/11/25 18:00 05/12/25 09:31 100 MLS/HR Sodium Chloride 1,000 ml @ 125 mls/hr Q8H IV 05/12/25 10:30 05/12/25 12:06 125 MLS/HR Laboratory Results Laboratory Tests 05/12/25 04:45 Chemistry Test 05/11/25 18:35 05/12/25 04:45 Albumin 3.2 g/dL (3.2-4.8) 3.0 g/dL (3.2-4.8) L Calcium Level 7.9 mg/dL (8.7-10.4) L 8.2 mg/dL (8.7-10.4) L Total Protein 5.4 g/dL (5.7-8.2) L 5.2 g/dL (5.7-8.2) L Phosphorus Level 5.3 mg/dL (2.4-5.1) H LFT Test 05/11/25 18:35 05/12/25 04:45 Alanine Aminotransferase (ALT) 9 U/L (7-40) < 9 U/L (7-40) Alkaline Phosphatase 71 U/L (46-116) 60 U/L (46-116) Aspartate Amino Transferase (AST) 17 U/L (13-40) 14 U/L (13-40) Total Bilirubin 0.6 mg/dL (0.2-1.0) 0.3 mg/dL (0.2-1.0) Urinalysis Test 05/11/25 08:06 Urine Color Colorless (Yellow) Urine Clarity Turbid (Clear) H Urine pH 6.0 (5.0-9.0) Urine Specific [place] 1.004 (1.001-1.035) Urine Protein 1+ (Negative) H Urine Ketones Negative (Negative) Urine Blood 1+ /uL (Negative) H Urine Nitrite Negative (Negative) Urine Bilirubin Negative (Negative) Urine Urobilinogen Normal mg/dL (Negative) Urine Leukocyte Esterase 3+ /uL (Negative) Urine RBC 16 /hpf (0 - 4) Urine WBC Clumps Present /hpf (None Seen) Urine Microscopic WBC 137 /HPF (0-5) H Urine Squamous Epithelial Cells Mod /hpf (<5) Urine Bacteria Many /hpf (None Seen) H Urine Mucus Few (None Seen) Urine Creatinine 11.55 mg/dL (30.0-125.0) L Urine Sodium 88 mmol/L (40-220) Urine Glucose Normal mg/dL (Normal) Microbiology Microbiology Date/Time Source Procedure Growth Status 05/11/25 18:30 Urine - [place] Urine Culture - Preliminary Resulted 05/11/25 09:11 Blood Blood Culture - Preliminary NO GROWTH AFTER 24 HOURS OF INCUBATION. Resulted Labs and/or images reviewed: Labs reviewed by me, Image(s) reviewed by me Assessment/Plan Assessment/Plan 05/12- patient had bilateral stents inserted by Dr. Torres [facility] yesterday. Patient is making adequate urine output. Patient is still having CKD. AARTI likely obstructive, is resolving. Nephrology is on board for CKD and given 500 cc bolus. And continue maintenance 125 cc per hour thereafter. Continue IV antibiotics. Patient says her pain is resolving. Abdominal exam benign. Bowel sounds are hypoactive. We will continue diet. IR for Wednesday to drain left perinephric abscess, likely. Also IR Wednesday for possible bilateral nephrostomy tube. Patient vitals stable. Maintain in D OU status for close observation. Assessment: Hydronephrosis due to obstruction of ureter, Acute kidney injury, Possible fistula, Bilateral kidney stones, SIRS, Anemia, UTI, Diabetes, Hypertension, Plan: Admit to [facility], Surgical consult, Nephrology consult, Urology consult, IR consult, NPO, IV antibiotics, IV hydration, Pain management, Accu checks Q 6 hours with sliding scale, Home medications held at this time, Plan discussed with: Patient Date of Service: May 12, 2025 Billing Provider: ORION SHARIF MD Common Visit Codes: [id number] CARE 30-74 MIN ORION SHARIF MD May 12, 2025 13:03
--- NOTE | 2025-05-12 13:29 | DVH ---
Exam: XY KUB ABDOMEN SINGLE VIEW Indication: BILATERAL URETERAL STENT PLACEMENT Comparison: None Technique: 1 radiographic views of the abdomen. Findings: Bilateral ureteral stents Nonobstructive bowel gas pattern noted. There is no definite evidence for pneumoperitoneum. No abnormal calcifications noted. Impression: 1. Bilateral ureteral stent placement.
--- NOTE | 2025-05-12 13:53 | DVH ---
C-ARM FLUOROSCOPY: PROCEDURE: Stent placement FLUOROSCOPY TIME: 15.3 sec DAP: 2.9 mgy FINDINGS: Spot intraoperative C arm radiographs demonstrating stent placement IMPRESSION: 1. Please refer to surgical report for detailed findings.
[2025-05-12 15:07] LABS: Hematocrit 22.4 % (36.0-46.0); Hemoglobin 7.3 g/dL (12.2-16.2); Mean Corpuscular Hemoglobin 28.9 pg (28.0-32.0); Mean Corpuscular Volume 89.2 fL (80.0-100.0); Nucleated Red Blood Cells % 0.0 %
--- NOTE | 2025-05-12 21:11 | DVH ---
Exam: XY KUB ABDOMEN SINGLE VIEW Indication: BILATERAL URETERAL STENT PLACEMENT Comparison: None Technique: radiographic views of the abdomen. Findings: There are bilateral double-J ureteral stents in place projecting over the expected locations of the b ilateral renal collecting systems. Scattered gas throughout nondilated small and large bowel. Small bilateral pleural effusions. Mild degenerative narrowing of the bilateral hips. Bony demineralization. Calcified athero sclerosis. Impression: Bilateral double-J ureteral stents in place projecting over the expected locations of the bilateral r enal collecting systems. No evidence of bowel obstruction.
--- NOTE | 2025-05-12 22:32 | DVHPN2 ---
Progress Note - Dictate Date Seen: May 12, 2025 Has the PT tested + for MRSA If YES, has PT been informed?: No Medical Necessity Reason Pt with a Central, PICC or Fol: Yes Reason for painting catheter: Hong. Abd Surgery Subjective Patient seen and examined at bedside. On supplemental oxygen Overnight events reviewed. History of Present Illness: An 85-year-old woman with past medical history of hypertension and diabetes, who presented to the hospital on 05/11/25 with c/o abdominal pain. Reported the pain began the night prior, in her RUQ. Denied nausea, or vomiting. She noticed needing to go to the bathroom more frequently and having less urine, denied dysuria. No hx of kidney stones. Patient is from [place], here visiting family and scheduled to go home on Wednesday05/14/2025. She was admitted for further care and pulmonary consultation is requested for evaluation and management with diagnosis of SIRS. Review of Systems: 14-point review of systems negative unless otherwise noted above. Past Medical History: Hypertension, and diabetes mellitus Past Surgical History: Hemorrhoidectomy Medications: Reviewed. Allergies: No known drug allergies. Family History: No family history of premature CAD. No family history of lung disorders. Social History: Nonsmoker. No alcohol or illicit drug use. vital signs Vital Sign Date Time Temp Pulse Resp B/P (MAP) Pulse Ox O2 Delivery O2 Flow Rate FiO2 05/12/25 20:00 98.9 73 23 142/61 (88) 91 98.9 05/12/25 08:00 Nasal Cannula* 2 28 Total Intake and Output 05/11/25 05/11/25 05/12/25 14:59 22:59 06:59 Intake Total 2250 ml 200 ml 50 ml Output Total 325 ml 425 ml Balance 2250 ml -125 ml -375 ml medications Current Medications Medications Dose Ordered Sig/Augustin Route Start Time Stop Time Status Last Admin Dose Admin Cefepime HCl 50 ml @ 12.5 mls/hr HS IV 05/11/25 22:00 05/12/25 00:03 12.5 MLS/HR Acetaminophen/ Hydrocodone Bitart 1 tab Q4HP PRN PO 05/11/25 13:45 Ondansetron HCl 4 mg Q4HP PRN IV 05/11/25 13:45 Docusate Sodium 100 mg BIDPRN PRN PO 05/11/25 13:45 Morphine Sulfate 2 mg Q4HPRN PRN IV 05/11/25 13:45 05/11/25 19:06 2 MG Nitroglycerin 0.4 mg Q5MINP PRN SL 05/11/25 13:45 Morphine Sulfate 2 mg Q30M PRN IV 05/11/25 13:45 Vancomycin HCl 0 ml @ 0 mls/hr UD IV 05/11/25 13:45 Diagnostic Test (Pha) 1 strip Q6HR 05/11/25 18:00 05/12/25 17:55 1 STRIP Insulin Human Regular Q6HR SC 05/11/25 18:00 05/12/25 12:04 3 UNITS Dextrose 50 ml UD PRN IV 05/11/25 14:00 Acetaminophen 650 mg Q6HP PRN [place] 05/11/25 17:15 05/11/25 17:52 650 MG Metronidazole 100 ml @ 100 mls/hr Q8H IV 05/11/25 18:00 05/12/25 17:55 100 MLS/HR Sodium Chloride 1,000 ml @ 125 mls/hr Q8H IV 05/12/25 10:30 05/12/25 12:06 125 MLS/HR objective Gen.: Patient lying in bed in no apparent distress. On supplemental oxygen. Head: Normocephalic, atraumatic. Eyes: EOMI/PERRLA. Ears: Normal hearing. Normal anatomy. Neck/trachea: Trachea midline, supple. Nose: Normal external anatomy. Mouth: Moist mucous membranes. Chest: Decreased air entry bilaterally. No wheezing or rhonchi. Cardiovascular: Positive S1, positive S2. Regular rate and rhythm. Abdomen: Positive bowel sounds in all 4 quadrants. Soft, non-tender, non- distended. : Deferred. Rectal: Deferred. Skin: Warm, dry. Intact. Extremities: 2+ radial pulses bilaterally. No lower extremity edema. Neuro: Awake, alert, oriented x3. No gross motor or sensory deficits. Cranial nerves II through XII intact. Gait not assessed. laboratory and microbiology Laboratory Tests 05/12/25 14:57 05/12/25 04:45 Test 05/12/25 04:45 Range/Units Serum Glucose 117 H 74-106 mg/dL Assessment/Plan Impression: Hydronephrosis d/t ureteral obstruction Acute kidney injury Bilateral kidney stones Systemic inflammatory response syndrome Anemia Urinary tract infection Plan: Supplemental oxygen, on 1 LPM NC Titrate to keep O2 sats above 92%. Plan for nephrostomy tube by IR on Wednesday S/p - bilateral ureteral stents. Surgery recs appreciated. Continue antibiotics Monitor WBC IS. Pain control Avoid oversedation Monitor hemoglobin Accu-Cheks, ISS. Follow up Nephrology recommendations Follow up Urology recommendations Monitor renal function. Monitor electrolytes. Supplement as necessary. Monitor ins and outs. DVT prophylaxis. Prognosis: Poor given patient's multiple co-morbidities. Rest of plan per hospitalist and other consultants. Thank you, AGUEDA Guevara, for allowing me to participate in this patient's care. Further recommendations will depend on the patient's clinical course. Please do not hesitate to contact me if you have any questions or concerns. This medical document was created using an electronic medical record system with [employer] dictation system. Although these documentations are being carefully reviewed, there may still be some phonetic and typographical changes. The errors are purely typographical, due to imperfection on the software program, and do not reflect any compromise in the patient's medical care. Plan discussed with: Patient, Other (SREEKANTH Reeder) GA GILLIS MD May 12, 2025 22:32
[2025-05-13] VITALS (25 sets, daily range): BP systolic 118–178; BP diastolic 46–69; PULSE 62–80; RESP 8–28; TEMP 98.5–99; O2SAT 90–97
[2025-05-13 07:21] LABS: Hematocrit 22.2 % (36.0-46.0); Hemoglobin 7.3 g/dL (12.2-16.2); Mean Corpuscular Hemoglobin 29.4 pg (28.0-32.0); Mean Corpuscular Volume 89.0 fL (80.0-100.0); Nucleated Red Blood Cells % 0.1 %
[2025-05-13 07:38] LABS: Anion Gap 8 (5-15); Carbon Dioxide 20 mmol/L (20-31); Chloride 106 mmol/L (98-107); Potassium 4.6 mmol/L (3.5-5.1)
[2025-05-13 07:44] LABS: BUN/Creatinine Ratio 15.7 (10.0-20.0); Glucose 94 mg/dL (74-106)
[2025-05-13 07:45] LABS: Blood Urea Nitrogen 48 mg/dL (9-23); Calcium 7.8 mg/dL (8.7-10.4); Sodium 134 mmol/L (136-145)
--- NOTE | 2025-05-13 09:41 | DVHPN2 ---
Progress Note - Dictate Date Seen: May 13, 2025 Has the PT tested + for MRSA If YES, has PT been informed?: No Medical Necessity Reason Pt with a Central, PICC or Fol: Yes Reason for painting catheter: Hong. Abd Surgery Subjective E: no major events o/n. c/o diffuse abd pain but emil po. GEN: NAD ABD: soft. very min TTP w/o G/R. vital signs Vital Sign Date Time Temp Pulse Resp B/P (MAP) Pulse Ox O2 Delivery O2 Flow Rate FiO2 05/13/25 09:00 67 18 137/62 (87) 94 05/13/25 08:00 Nasal Cannula* 2 28 05/13/25 08:00 98.8 98.8 Total Intake and Output 05/12/25 05/12/25 05/13/25 15:00 23:00 07:00 Intake Total 975 ml 1447 ml 1293.0 ml Output Total 1000 ml 500 ml Balance 975 ml 447 ml 793.0 ml medications Current Medications Medications Dose Ordered Sig/Augustin Route Start Time Stop Time Status Last Admin Dose Admin Cefepime HCl 50 ml @ 12.5 mls/hr HS IV 05/11/25 22:00 05/12/25 22:46 12.5 MLS/HR Acetaminophen/ Hydrocodone Bitart 1 tab Q4HP PRN PO 05/11/25 13:45 Ondansetron HCl 4 mg Q4HP PRN IV 05/11/25 13:45 Docusate Sodium 100 mg BIDPRN PRN PO 05/11/25 13:45 Morphine Sulfate 2 mg Q4HPRN PRN IV 05/11/25 13:45 05/12/25 22:45 2 MG Nitroglycerin 0.4 mg Q5MINP PRN SL 05/11/25 13:45 Morphine Sulfate 2 mg Q30M PRN IV 05/11/25 13:45 Vancomycin HCl 0 ml @ 0 mls/hr UD IV 05/11/25 13:45 Diagnostic Test (Pha) 1 strip Q6HR 05/11/25 18:00 05/13/25 06:00 1 STRIP Insulin Human Regular Q6HR SC 05/11/25 18:00 05/12/25 12:04 3 UNITS Dextrose 50 ml UD PRN IV 05/11/25 14:00 Acetaminophen 650 mg Q6HP PRN MS 05/11/25 17:15 05/11/25 17:52 650 MG Metronidazole 100 ml @ 100 mls/hr Q8H IV 05/11/25 18:00 05/13/25 03:00 100 MLS/HR Sodium Chloride 1,000 ml @ 125 mls/hr Q8H IV 05/12/25 10:30 05/13/25 02:30 125 MLS/HR objective GEN: NAD. alert. ABD: soft. very min suprapubic TTP w/o G/R. ND laboratory and microbiology Laboratory Tests 05/13/25 04:51 Test 05/13/25 04:51 Range/Units Serum Glucose 94 74-106 mg/dL Assessment/Plan A: 1. Bilateral hydronephrosis from obstructing calculi s/p ureteral stent placement. 2. Left upper quadrant fluid collection possible abscess vs fluid colleciton posterior to the left kidney. P: 1. percutaneous drainage by IR drake tomorrow for LUQ fluid collection Plan discussed with: Patient LEWIS HERRERA MD May 13, 2025 09:41
[2025-05-13] MEDS: DOCUSATE SOD 100 MG CAP PO PRN (09:53)
--- NOTE | 2025-05-13 10:36 | DVHPN2 ---
Subjective History of Present Illness Meri Cardoso is an 85-year-old female with past medical history of hypertension, and diabetes, who came to the hospital for abdominal pain. The patient states the pain began last night about 2200 in her RUQ. She denies any pain, nausea, or vomiting, prior to last night. States she has noticed needing to go to the bathroom more frequently and having less urine, denies dysuria. Patient denies any knowledge of having kidney stones or having them in the past. Patient is from [place], she is here visiting family and scheduled to go home on Wednesday05/14/2025. Reviewed: H&P Changes from previous H/P or p: No Changes General: Per HPI Eyes: No Pain, No Vision change, No Conjunctivae inflammation, No Eyelid inflammation, No Other, No Redness ENT: No Ear pain, No Ear discharge, No Nose pain, No Nose discharge, No Nose congestion, No Mouth pain, No Mouth swelling, No Throat pain, No Throat swelling, No Other Cardiovascular: No Chest Pain, No Palpitations, No Orthopnea, No Paroxysmal Noc. Dyspnea, No Edema, No Lt Headedness, No Other Respiratory: No Cough, No Dry, No Shortness of breath, No SOB with excertion, No Wheezing, No Hemoptysis, No Pleuritic Pain, No Sputum, No Other Gastrointestinal: No Nausea, No Vomiting; Abdominal Pain; No Diarrhea, No Constipation, No Melena, No Hematochezia, No Other Genitourinary: No Dysuria; Frequency; No Incontinence, No Hematuria, No Retention; Other (less urine) Musculoskeletal: No other, No neck pain, No shoulder pain, No arm pain, No back pain, No hand pain, No leg pain, No foot pain Skin: No Rash, No Lesions, No Jaundice, No Bruising, No Other Objective Vitals Vital Signs Date Time Temp Pulse Resp B/P (MAP) Pulse Ox O2 Delivery O2 Flow Rate FiO2 05/13/25 10:01 70 20 147/66 (93) 95 05/13/25 08:00 Nasal Cannula* 2 28 05/13/25 08:00 98.8 98.8 Intake/Output Intake and Output 05/13/25 07:00 Intake Total 3840.0 ml Output Total 1500 ml Balance 2340.0 ml Intake Oral 590 ml IV Total 3250.0 ml Output Urine Total 1500 ml Exam General Appearance: Alert, Oriented X3, Cooperative, moderate distress HEENT: Atraumatic, PERRLA Respiratory: Clear to auscultation, Normal air movement Cardiovascular: Regular rate, Normal S1, Normal S2, No murmurs Abdominal: Normal bowel sounds, Soft, Other (RUQ pain) Extremities: No clubbing, No cyanosis, No edema, Normal pulses Skin: No rashes, No breakdown, No significant lesion Neuro: Normal gait, Normal speech, Strength at 5/5 X4 ext, Normal tone Psych/Mental Status: Mental status NL, Mood NL Medications Current Medications Medications Dose Ordered Sig/Augustin Route Start Time Stop Time Status Last Admin Dose Admin Cefepime HCl 50 ml @ 12.5 mls/hr HS IV 05/11/25 22:00 05/12/25 22:46 12.5 MLS/HR Acetaminophen/ Hydrocodone Bitart 1 tab Q4HP PRN PO 05/11/25 13:45 Ondansetron HCl 4 mg Q4HP PRN IV 05/11/25 13:45 Docusate Sodium 100 mg BIDPRN PRN PO 05/11/25 13:45 05/13/25 09:53 100 MG Morphine Sulfate 2 mg Q4HPRN PRN IV 05/11/25 13:45 05/12/25 22:45 2 MG Nitroglycerin 0.4 mg Q5MINP PRN SL 05/11/25 13:45 Morphine Sulfate 2 mg Q30M PRN IV 05/11/25 13:45 Vancomycin HCl 0 ml @ 0 mls/hr UD IV 05/11/25 13:45 Diagnostic Test (Pha) 1 strip Q6HR 05/11/25 18:00 05/13/25 06:00 1 STRIP Insulin Human Regular Q6HR SC 05/11/25 18:00 05/12/25 12:04 3 UNITS Dextrose 50 ml UD PRN IV 05/11/25 14:00 Acetaminophen 650 mg Q6HP PRN [place] 05/11/25 17:15 05/11/25 17:52 650 MG Metronidazole 100 ml @ 100 mls/hr Q8H IV 05/11/25 18:00 05/13/25 09:53 100 MLS/HR Sodium Chloride 1,000 ml @ 125 mls/hr Q8H IV 05/12/25 10:30 05/13/25 02:30 125 MLS/HR Laboratory Results Laboratory Tests 05/13/25 04:51 Chemistry Test 05/13/25 04:51 Calcium Level 7.8 mg/dL (8.7-10.4) L Urinalysis Test 05/11/25 08:06 Urine Color Colorless (Yellow) Urine Clarity Turbid (Clear) H Urine pH 6.0 (5.0-9.0) Urine Specific [place] 1.004 (1.001-1.035) Urine Protein 1+ (Negative) H Urine Ketones Negative (Negative) Urine Blood 1+ /uL (Negative) H Urine Nitrite Negative (Negative) Urine Bilirubin Negative (Negative) Urine Urobilinogen Normal mg/dL (Negative) Urine Leukocyte Esterase 3+ /uL (Negative) Urine RBC 16 /hpf (0 - 4) Urine WBC Clumps Present /hpf (None Seen) Urine Microscopic WBC 137 /HPF (0-5) H Urine Squamous Epithelial Cells Mod /hpf (<5) Urine Bacteria Many /hpf (None Seen) H Urine Mucus Few (None Seen) Urine Creatinine 11.55 mg/dL (30.0-125.0) L Urine Sodium 88 mmol/L (40-220) Urine Glucose Normal mg/dL (Normal) Microbiology Microbiology Date/Time Source Procedure Growth Status 05/11/25 18:30 Urine - [place] Urine Culture - Preliminary Resulted 05/11/25 15:15 Nose MRSA Screen - Final Complete 05/11/25 09:11 Blood Blood Culture - Preliminary NO GROWTH AFTER 48 HOURS OF INCUBATION. Resulted Labs and/or images reviewed: Labs reviewed by me, Image(s) reviewed by me Assessment/Plan Assessment/Plan 05/12- patient had bilateral stents inserted by Dr. [facility] yesterday. Patient is making adequate urine output. Patient is still having CKD. AARTI likely obstructive, is resolving. Nephrology is on board for CKD and given 500 cc bolus. And continue maintenance 125 cc per hour thereafter. Continue IV antibiotics. Patient says her pain is resolving. Abdominal exam benign. Bowel sounds are hypoactive. We will continue diet. IR for Wednesday to drain left perinephric abscess, likely. Also IR Wednesday for possible bilateral nephrostomy tube. Patient vitals stable. Maintain in D OU status for close observation. Next 05/13-patient is making good urine output. Urology has plan for possible nephrostomy bilateral tomorrow. Surgery has plan for IR consult for drainage of abscess in left perirenal region. Urine output is adequate 500 cc over 24 hour. Light straw-colored urine vitals stable. Renal function stable creatinine 3.0. Hemoglobin is low we will type and screen today. Repeat p.m. hemoglobin. We will do heparin 5000 U t.i.d. subQ for DVT prophylaxis. DVT prophylaxis to be held after midnight. We will test coags today. For possible IR tomorrow. She is tolerating p.o.. Urine culture growing ESBL E coli. We will start ertapenem. Assessment: Hydronephrosis due to obstruction of ureter, Sepsis UTI due to ESBL, E coli Acute kidney injury, Possible fistula, Bilateral kidney stones, SIRS, Anemia, UTI, Diabetes, Hypertension, Plan: [facility], Surgical consult, reviewed Nephrology consult, reviewed Urology consult, SP bilateral stents ureter reviewed IR consult, reviewed Diet as tolerated Ertapenem IV antibiotics, IV hydration, Pain management, Accu checks Q 6 hours with sliding scale, Plan discussed with: Patient Date of Service: May 13, 2025 Billing Provider: ORION SHARIF MD Common Visit Codes: [id number] CARE 30-74 MIN ORION SHARIF MD May 13, 2025 10:36
--- NOTE | 2025-05-13 10:42 | DVHPN2 ---
Progress Note - Dictate Date Seen: May 13, 2025 Has the PT tested + for MRSA If YES, has PT been informed?: No Medical Necessity Reason Pt with a Central, PICC or Fol: Yes Reason for painting catheter: Hong. Abd Surgery Subjective Awake and alert, urine volumes nonoliguric vital signs Vital Sign Date Time Temp Pulse Resp B/P (MAP) Pulse Ox O2 Delivery O2 Flow Rate FiO2 05/13/25 10:01 70 20 147/66 (93) 95 05/13/25 08:00 Nasal Cannula* 2 28 05/13/25 08:00 98.8 98.8 Total Intake and Output 05/12/25 05/12/25 05/13/25 15:00 23:00 07:00 Intake Total 975 ml 1447 ml 1418.0 ml Output Total 1000 ml 500 ml Balance 975 ml 447 ml 918.0 ml medications Current Medications Medications Dose Ordered Sig/Augustin Route Start Time Stop Time Status Last Admin Dose Admin Cefepime HCl 50 ml @ 12.5 mls/hr HS IV 05/11/25 22:00 05/12/25 22:46 12.5 MLS/HR Acetaminophen/ Hydrocodone Bitart 1 tab Q4HP PRN PO 05/11/25 13:45 Ondansetron HCl 4 mg Q4HP PRN IV 05/11/25 13:45 Docusate Sodium 100 mg BIDPRN PRN PO 05/11/25 13:45 05/13/25 09:53 100 MG Morphine Sulfate 2 mg Q4HPRN PRN IV 05/11/25 13:45 05/12/25 22:45 2 MG Nitroglycerin 0.4 mg Q5MINP PRN SL 05/11/25 13:45 Morphine Sulfate 2 mg Q30M PRN IV 05/11/25 13:45 Vancomycin HCl 0 ml @ 0 mls/hr UD IV 05/11/25 13:45 Diagnostic Test (Pha) 1 strip Q6HR 05/11/25 18:00 05/13/25 06:00 1 STRIP Insulin Human Regular Q6HR SC 05/11/25 18:00 05/12/25 12:04 3 UNITS Dextrose 50 ml UD PRN IV 05/11/25 14:00 Acetaminophen 650 mg Q6HP PRN CO 05/11/25 17:15 05/11/25 17:52 650 MG Metronidazole 100 ml @ 100 mls/hr Q8H IV 05/11/25 18:00 05/13/25 09:53 100 MLS/HR Sodium Chloride 1,000 ml @ 125 mls/hr Q8H IV 05/12/25 10:30 05/13/25 02:30 125 MLS/HR objective Gen: nad heent: nc/at, mmm lungs: cta anteriorly cvs: no rub abd: soft, bowel sounds audible ext: no edema skin: no rash neuro: alert and oriented laboratory and microbiology Laboratory Tests 05/13/25 04:51 Test 05/13/25 04:51 Range/Units Serum Glucose 94 74-106 mg/dL Assessment/Plan IMP: 1) Hemodynamically mediated AARTI/VMN possible prerenal state and obstructive uropathy. 2) CKD ? 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 - we will defer clinical decision-making to primary team and to urology. - we will continue with IV fluids at maintenance. Stable GFR. Plan discussed with: Patient JOSE TESFAYE MD May 13, 2025 10:42
[2025-05-13] MEDS: SOD CHL 0.45% 1,000 ML IV SCH (10:45)
[2025-05-13 11:46] LABS: INR 1.03 (0.9-1.15); Partial Thromboplastin Time 29.4 SEC (24.5-34.5); Prothrombin Time 10.9 sec (9.3-11.8)
--- NOTE | 2025-05-13 13:50 | MEDREC ---
[facility] Intervention Section I [facility] Intervention: Review courses of therapy (URINE CULTURE GROWING E.COLI ESBL, PLEASE CONSIDER SWITCHING CEFEPIME + METRONIDAZOLE TO ERTAPENEM ) ARUN KAUR PHARMACIST May 13, 2025 13:50
[2025-05-13] MEDS: HEPARIN SODIUM (PORCINE) 5000 UNITS/ML 1ML VIAL SC SCH (14:00)
[2025-05-13] MEDS: ERTAPENEM SOD INJ 0.5 GM in SODIUM CHL 0.9% 50 ML IV SCH (16:45)
[2025-05-13 19:12] LABS: Hematocrit 25.0 % (36.0-46.0); Hemoglobin 8.2 g/dL (12.2-16.2)
[2025-05-13] MEDS: HYDROcodone-ACET 5/325MG TAB PO PRN (20:48)
--- NOTE | 2025-05-13 23:54 | DVHPN2 ---
Progress Note - Dictate Date Seen: May 13, 2025 Has the PT tested + for MRSA If YES, has PT been informed?: No Medical Necessity Reason Pt with a Central, PICC or Fol: Yes The following are medically ne: Painting Catheter Reason for painting catheter: Hong. Abd Surgery, Strict I&O Subjective Patient seen and examined at bedside. On supplemental oxygen Overnight events reviewed. History of Present Illness: An 85-year-old woman with past medical history of hypertension and diabetes, who presented to the hospital on 05/11/25 with c/o abdominal pain. Reported the pain began the night prior, in her RUQ. Denied nausea, or vomiting. She noticed needing to go to the bathroom more frequently and having less urine, denied dysuria. No hx of kidney stones. Patient is from [place], here visiting family and scheduled to go home on Wednesday05/14/2025. She was admitted for further care and pulmonary consultation is requested for evaluation and management with diagnosis of SIRS. Review of Systems: 14-point review of systems negative unless otherwise noted above. Past Medical History: Hypertension, and diabetes mellitus Past Surgical History: Hemorrhoidectomy Medications: Reviewed. Allergies: No known drug allergies. Family History: No family history of premature CAD. No family history of lung disorders. Social History: Nonsmoker. No alcohol or illicit drug use. vital signs Vital Sign Date Time Temp Pulse Resp B/P (MAP) Pulse Ox O2 Delivery O2 Flow Rate FiO2 05/13/25 20:00 80 14 90 Nasal Cannula* 1 24 05/13/25 20:00 99.0 178/68 (104) 99.0 Total Intake and Output 05/12/25 05/12/25 05/13/25 15:00 23:00 07:00 Intake Total 975 ml 1447 ml 1418.0 ml Output Total 1000 ml 500 ml Balance 975 ml 447 ml 918.0 ml medications Current Medications Medications Dose Ordered Sig/Augustin Route Start Time Stop Time Status Last Admin Dose Admin Acetaminophen/ Hydrocodone Bitart 1 tab Q4HP PRN PO 05/11/25 13:45 05/13/25 20:48 1 TAB Ondansetron HCl 4 mg Q4HP PRN IV 05/11/25 13:45 Docusate Sodium 100 mg BIDPRN PRN PO 05/11/25 13:45 05/13/25 09:53 100 MG Morphine Sulfate 2 mg Q4HPRN PRN IV 05/11/25 13:45 05/12/25 22:45 2 MG Nitroglycerin 0.4 mg Q5MINP PRN SL 05/11/25 13:45 Morphine Sulfate 2 mg Q30M PRN IV 05/11/25 13:45 Vancomycin HCl 0 ml @ 0 mls/hr UD IV 05/11/25 13:45 Diagnostic Test (Pha) 1 strip Q6HR 05/11/25 18:00 05/13/25 23:43 1 STRIP Insulin Human Regular Q6HR SC 05/11/25 18:00 05/13/25 23:46 3 UNITS Dextrose 50 ml UD PRN IV 05/11/25 14:00 Acetaminophen 650 mg Q6HP PRN KS 05/11/25 17:15 05/11/25 17:52 650 MG Sodium Chloride 1,000 ml @ 100 mls/hr Q10H IV 05/13/25 10:45 05/13/25 20:45 100 MLS/HR Heparin Sodium (Porcine) 5,000 units Q8HR SC 05/13/25 14:00 05/13/25 22:03 5,000 UNITS Ertapenem 0.5 gm/ Sodium Chloride 50 ml @ 100 mls/hr DAILY IV 05/13/25 15:45 05/13/25 16:45 100 MLS/HR objective Gen.: Patient lying in bed in no apparent distress. On supplemental oxygen. Head: Normocephalic, atraumatic. Eyes: EOMI/PERRLA. Ears: Normal hearing. Normal anatomy. Neck/trachea: Trachea midline, supple. Nose: Normal external anatomy. Mouth: Moist mucous membranes. Chest: Decreased air entry bilaterally. No wheezing or rhonchi. Cardiovascular: Positive S1, positive S2. Regular rate and rhythm. Abdomen: Positive bowel sounds in all 4 quadrants. Soft, non-tender, non- distended. : Deferred. Rectal: Deferred. Skin: Warm, dry. Intact. Extremities: 2+ radial pulses bilaterally. No lower extremity edema. Neuro: Awake, alert, oriented x3. No gross motor or sensory deficits. Cranial nerves II through XII intact. Gait not assessed. laboratory and microbiology Laboratory Tests 05/13/25 18:56 05/13/25 04:51 Test 05/13/25 04:51 Range/Units Serum Glucose 94 74-106 mg/dL Assessment/Plan Impression: Hydronephrosis d/t ureteral obstruction Acute kidney injury Bilateral kidney stones Systemic inflammatory response syndrome Anemia Urinary tract infection Plan: Supplemental oxygen, on 1 LPM NC Titrate to keep O2 sats above 92%. Awaiting eval by IR for nephrostomy tube placement. S/p - bilateral ureteral stents. Surgery recs appreciated. Continue antibiotics Follow up culture and sensitivities Monitor WBC - 15 K IS. Pain control Avoid oversedation Monitor hemoglobin - currently 7.3 g/dL Accu-Cheks, ISS. Follow up Nephrology recommendations Follow up Urology recommendations Monitor renal function. Monitor electrolytes. Supplement as necessary. Monitor ins and outs. DVT prophylaxis. Prognosis: Poor given patient's multiple co-morbidities. Rest of plan per hospitalist and other consultants. Thank you, AGUEDA Guevara, for allowing me to participate in this patient's care. Further recommendations will depend on the patient's clinical course. Please do not hesitate to contact me if you have any questions or concerns. This medical document was created using an electronic medical record system with [employer] dictation system. Although these documentations are being carefully reviewed, there may still be some phonetic and typographical changes. The errors are purely typographical, due to imperfection on the software program, and do not reflect any compromise in the patient's medical care. Plan discussed with: Patient, Other (SREEKANTH Anderson) GA GILLIS MD May 13, 2025 23:54
[2025-05-14] VITALS (25 sets, daily range): BP systolic 130–178; BP diastolic 44–74; PULSE 57–79; RESP 14–25; TEMP 97.8–99.1; O2SAT 85–99
[2025-05-14] MEDS: hydrALAZINE HCL 20 MG/ML VL IV ONE (02:19)
--- NOTE | 2025-05-14 04:57 | DVH ---
CHEST RADIOGRAPH Indication: sob Technique: Single AP view of the chest WID: COMPARISON: XY CHEST PORTABLE on DOS: 05/11/25, XY CHEST PORTABLE on DOS: 05/11/25, XY CHEST PORTABLE on DOS: 05/11/25 FINDINGS: Lines and tubes: There is a left subclavian central venous catheter with the tip projecting over the right atrium Chest: Cardiomegaly and pulmonary vascular congestion. Calcified plaque projects over the aortic arch. No pleural effusion, pneumothorax, or consolidation. The osseous structures are grossly intact. IMPRESSION: Cardiomegaly and pulmonary vascular congestion. Left subclavian central venous catheter with tip projecting over the right atrium. No pneumothorax.
[2025-05-14 06:28] LABS: Hematocrit 24.6 % (36.0-46.0); Hemoglobin 8.0 g/dL (12.2-16.2); Mean Corpuscular Hemoglobin 28.8 pg (28.0-32.0); Mean Corpuscular Volume 88.5 fL (80.0-100.0); Nucleated Red Blood Cells % 0.0 %
[2025-05-14 06:39] LABS: Albumin 3.3 g/dL (3.2-4.8); Alkaline Phosphatase 105 U/L (46-116); Anion Gap 10 (5-15); BUN/Creatinine Ratio 15.7 (10.0-20.0); Chloride 105 mmol/L (98-107); Glucose 105 mg/dL (74-106); Potassium 4.2 mmol/L (3.5-5.1); Total Protein 5.7 g/dL (5.7-8.2)
[2025-05-14 06:40] LABS: Bilirubin, Total 0.4 mg/dL (0.2-1.0)
[2025-05-14 06:43] LABS: Alanine Aminotransferase < 9 U/L (7-40); Blood Urea Nitrogen 44 mg/dL (9-23); Calcium 8.3 mg/dL (8.7-10.4); Carbon Dioxide 20 mmol/L (20-31); Sodium 135 mmol/L (136-145)
--- NOTE | 2025-05-14 08:10 | DVH ---
INDICATION: POSSIBLE NEPHROSTOMY TUBE PLACEMENT TECHNIQUE: Multiple real-time sonographic images of the kidneys and bladder were obtained. COMPARISON: None FINDINGS: The right kidney measures 10.7 cm in length, which is normal in size. There is normal echogenicity of the right kidney. Mild hydronephrosis. There is a hypoechoic structure in the right kidney measuring 1.8 x 2.0 x 1.6 cm. The left kidney measures 9.8 cm in length, which is normal in size. There is normal echogenicity of t he left kidney. Mild hydronephrosis. Urinary bladder is collapsed around a Wang catheter and not well evaluated. IMPRESSION: 1. Mild bilateral hydronephrosis. 2. Hypoechoic structure in the right kidney measuring 2.0 cm which may represent a cyst.
--- NOTE | 2025-05-14 10:17 | DVHPN2 ---
Progress Note - Dictate Date Seen: May 14, 2025 Has the PT tested + for MRSA If YES, has PT been informed?: No Medical Necessity Reason Pt with a Central, PICC or Fol: Yes The following are medically ne: Painting Catheter Reason for painting catheter: Hong. Abd Surgery, Strict I&O vital signs Vital Sign Date Time Temp Pulse Resp B/P (MAP) Pulse Ox O2 Delivery O2 Flow Rate FiO2 05/14/25 10:00 71 20 160/54 (89) 96 05/14/25 08:00 Nasal Cannula* 2 28 05/14/25 08:00 98.3 98.3 Total Intake and Output 05/13/25 05/13/25 05/14/25 15:00 23:00 07:00 Intake Total 975 ml 1300 ml 1000 ml Output Total 2200 ml 2525 ml Balance 975 ml -900 ml -1525 ml medications Current Medications Medications Dose Ordered Sig/Augustin Route Start Time Stop Time Status Last Admin Dose Admin Acetaminophen/ Hydrocodone Bitart 1 tab Q4HP PRN PO 05/11/25 13:45 05/13/25 20:48 1 TAB Ondansetron HCl 4 mg Q4HP PRN IV 05/11/25 13:45 Docusate Sodium 100 mg BIDPRN PRN PO 05/11/25 13:45 05/13/25 09:53 100 MG Morphine Sulfate 2 mg Q4HPRN PRN IV 05/11/25 13:45 05/14/25 01:37 2 MG Nitroglycerin 0.4 mg Q5MINP PRN SL 05/11/25 13:45 Morphine Sulfate 2 mg Q30M PRN IV 05/11/25 13:45 Vancomycin HCl 0 ml @ 0 mls/hr UD IV 05/11/25 13:45 Diagnostic Test (Pha) 1 strip Q6HR 05/11/25 18:00 05/14/25 06:01 1 STRIP Insulin Human Regular Q6HR SC 05/11/25 18:00 05/13/25 23:46 3 UNITS Dextrose 50 ml UD PRN IV 05/11/25 14:00 Acetaminophen 650 mg Q6HP PRN CA 05/11/25 17:15 05/11/25 17:52 650 MG Sodium Chloride 1,000 ml @ 100 mls/hr Q10H IV 05/13/25 10:45 05/14/25 06:02 100 MLS/HR Heparin Sodium (Porcine) 5,000 units Q8HR SC 05/13/25 14:00 05/13/25 22:03 5,000 UNITS Ertapenem 0.5 gm/ Sodium Chloride 50 ml @ 100 mls/hr DAILY IV 05/13/25 15:45 05/14/25 09:41 100 MLS/HR laboratory and microbiology Laboratory Tests 05/14/25 04:45 Test 05/14/25 04:45 Range/Units Serum Glucose 105 74-106 mg/dL Assessment/Plan nothing further from urology patient cleared from our standpoint she will need bilateral ESWL and stent removal TBA after she returns home. Problems(with codes): (1) Abdominal abscess (2) CHF (congestive heart failure) (3) Sepsis, unspecified organism (4) Hydronephrosis due to obstruction of ureter Prognosis fair Plan discussed with: Patient, Other DUNCAN STORM NP May 14, 2025 10:17
[2025-05-14] MEDS: LIDOCAINE 2%HCL (LOCAL ANESTH.) INJ 10ml MDV ONE (12:27)
[2025-05-14] MEDS: fentaNYL CITRATE 100 MCG/2 ML VL ONE (14:05)
[2025-05-14] MEDS: MIDAZOLAM HCL 2MG/2ML 2ml VIAL (1mg/ml) ONE (14:05)
--- NOTE | 2025-05-14 14:26 | DVHPN2 ---
Subjective Patient denies any symptoms. Currently at procedure. Reviewed: H&P Changes from previous H/P or p: No Changes General: Per HPI Eyes: No Pain, No Vision change, No Conjunctivae inflammation, No Eyelid inflammation, No Other, No Redness ENT: No Ear pain, No Ear discharge, No Nose pain, No Nose discharge, No Nose congestion, No Mouth pain, No Mouth swelling, No Throat pain, No Throat swelling, No Other Cardiovascular: No Chest Pain, No Palpitations, No Orthopnea, No Paroxysmal Noc. Dyspnea, No Edema, No Lt Headedness, No Other Respiratory: No Cough, No Dry, No Shortness of breath, No SOB with excertion, No Wheezing, No Hemoptysis, No Pleuritic Pain, No Sputum, No Other Gastrointestinal: No Nausea, No Vomiting; Abdominal Pain; No Diarrhea, No Constipation, No Melena, No Hematochezia, No Other Genitourinary: No Dysuria; Frequency; No Incontinence, No Hematuria, No Retention; Other (less urine) Musculoskeletal: No other, No neck pain, No shoulder pain, No arm pain, No back pain, No hand pain, No leg pain, No foot pain Skin: No Rash, No Lesions, No Jaundice, No Bruising, No Other Objective Vitals Vital Signs Date Time Temp Pulse Resp B/P (MAP) Pulse Ox O2 Delivery O2 Flow Rate FiO2 05/14/25 13:00 75 21 167/74 (105) 94 05/14/25 12:00 99.1 99.1 05/14/25 08:00 Nasal Cannula* 2 28 Intake/Output Intake and Output 05/14/25 07:00 Intake Total 3275 ml Output Total 4725 ml Balance -1450 ml Intake Oral 800 ml IV Total 2475 ml Output Urine Total 4725 ml General Appearance: Alert, Oriented X3, Cooperative, mild distress HEENT: Atraumatic, PERRLA Cardiovascular: Normal S1, Normal S2 Abdomen: Normal bowel sounds Skin: Dry, Intact Psych/Mental Status: Mental status NL, Mood NL Medications Current Medications Medications Dose Ordered Sig/Augustin Route Start Time Stop Time Status Last Admin Dose Admin Acetaminophen/ Hydrocodone Bitart 1 tab Q4HP PRN PO 05/11/25 13:45 05/13/25 20:48 1 TAB Ondansetron HCl 4 mg Q4HP PRN IV 05/11/25 13:45 Docusate Sodium 100 mg BIDPRN PRN PO 05/11/25 13:45 05/13/25 09:53 100 MG Morphine Sulfate 2 mg Q4HPRN PRN IV 05/11/25 13:45 05/14/25 01:37 2 MG Nitroglycerin 0.4 mg Q5MINP PRN SL 05/11/25 13:45 Morphine Sulfate 2 mg Q30M PRN IV 05/11/25 13:45 Vancomycin HCl 0 ml @ 0 mls/hr UD IV 05/11/25 13:45 Diagnostic Test (Pha) 1 strip Q6HR 05/11/25 18:00 05/14/25 11:39 1 STRIP Insulin Human Regular Q6HR SC 05/11/25 18:00 05/13/25 23:46 3 UNITS Dextrose 50 ml UD PRN IV 05/11/25 14:00 Acetaminophen 650 mg Q6HP PRN DC 05/11/25 17:15 05/11/25 17:52 650 MG Sodium Chloride 1,000 ml @ 100 mls/hr Q10H IV 05/13/25 10:45 05/14/25 06:02 100 MLS/HR Heparin Sodium (Porcine) 5,000 units Q8HR SC 05/13/25 14:00 05/13/25 22:03 5,000 UNITS Ertapenem 0.5 gm/ Sodium Chloride 50 ml @ 100 mls/hr DAILY IV 05/13/25 15:45 05/14/25 09:41 100 MLS/HR Laboratory Results Laboratory Tests 05/14/25 04:45 Chemistry Test 05/14/25 04:45 Albumin 3.3 g/dL (3.2-4.8) Calcium Level 8.3 mg/dL (8.7-10.4) L Total Protein 5.7 g/dL (5.7-8.2) LFT Test 05/14/25 04:45 Alanine Aminotransferase (ALT) < 9 U/L (7-40) Alkaline Phosphatase 105 U/L (46-116) Aspartate Amino Transferase (AST) 13 U/L (13-40) Total Bilirubin 0.4 mg/dL (0.2-1.0) Urinalysis Test 05/11/25 08:06 Urine Color Colorless (Yellow) Urine Clarity Turbid (Clear) H Urine pH 6.0 (5.0-9.0) Urine Specific [place] 1.004 (1.001-1.035) Urine Protein 1+ (Negative) H Urine Ketones Negative (Negative) Urine Blood 1+ /uL (Negative) H Urine Nitrite Negative (Negative) Urine Bilirubin Negative (Negative) Urine Urobilinogen Normal mg/dL (Negative) Urine Leukocyte Esterase 3+ /uL (Negative) Urine RBC 16 /hpf (0 - 4) Urine WBC Clumps Present /hpf (None Seen) Urine Microscopic WBC 137 /HPF (0-5) H Urine Squamous Epithelial Cells Mod /hpf (<5) Urine Bacteria Many /hpf (None Seen) H Urine Mucus Few (None Seen) Urine Creatinine 11.55 mg/dL (30.0-125.0) L Urine Sodium 88 mmol/L (40-220) Urine Glucose Normal mg/dL (Normal) Microbiology Microbiology Date/Time Source Procedure Growth Status 05/11/25 18:30 Urine - Wang Port Urine Culture - Final Escherichia coli - ESBL Complete 05/11/25 15:15 Nose MRSA Screen - Final Complete 05/11/25 09:11 Blood Blood Culture - Preliminary NO GROWTH AFTER 72 HOURS OF INCUBATION. Resulted Labs and/or images reviewed: Labs reviewed by me, Image(s) reviewed by me Assessment/Plan Assessment/Plan Impression: -severe sepsis -probable underlying chronic kidney disease with acute kidney injury -obstructive uropathy -bilateral hydronephrosis with renal calculi -complicated cystitis with ESBL in the urine -left abdominal abscess,? Fistula next to left kidney -normocytic anemia Plan: -patient is status post bilateral ureter stent placement. Repeat ultrasound with reduced hydronephrosis -IR consultation for drain of abscess, possible residual drain -change antibiotic therapy to Invanz -social service consultation for discharge planning given patient is from [place] -repeat labs in a.m. Total time spent with patient discussing and formulating plan of care: 35 minutes. This medical document was created using an electronic medical record system with [employer] dictation system. Although this document has been carefully reviewed, there may still be some phonetic and typographical errors. These areas are purely typographical due to imperfections of the software programs, and do not reflect any compromise in the patient's medical care. Plan discussed with: Patient, Other (RN) My Orders Orders - SANTIAGO DYSON DECKER OPERATOR Procedure Category Date Status Time Ct Guidance For CT 05/14/25 Logged Needle Placeme 12:[address] 05/14/25 Logged Contrast 12:09 Date of Service: May 14, 2025 Billing Provider: SANTIAGO DYSON NP Common Visit Codes: [id number] CARE 30-74 MIN SANTIAGO DYSON NP May 14, 2025 14:26
[2025-05-14] MEDS: VANCOMYCIN 500mg/100mL 100 ML IV ONE (15:00)
--- NOTE | 2025-05-14 15:46 | DVHPN2 ---
Progress Note Date Seen: May 14, 2025 Has the PT tested + for MRSA If YES, has PT been informed?: No Medical Necessity Reason Pt with a Central, PICC or Fol: Yes The following are medically ne: Painting Catheter Reason for painting catheter: Hong. Abd Surgery, Strict I&O Subjective Patient reports: No new complaints Review of Systems: Deferred Objective vital signs Vital Sign Date Time Temp Pulse Resp B/P (MAP) Pulse Ox O2 Delivery O2 Flow Rate FiO2 05/14/25 15:00 72 18 159/59 (92) 94 05/14/25 12:00 99.1 99.1 05/14/25 08:00 Nasal Cannula* 2 28 Total Intake and Output 05/13/25 05/13/25 05/14/25 15:00 23:00 07:00 Intake Total 975 ml 1300 ml 1000 ml Output Total 2200 ml 2525 ml Balance 975 ml -900 ml -1525 ml medications Current Medications Medications Dose Ordered Sig/Augustin Route Start Time Stop Time Status Last Admin Dose Admin Acetaminophen/ Hydrocodone Bitart 1 tab Q4HP PRN PO 05/11/25 13:45 05/13/25 20:48 1 TAB Ondansetron HCl 4 mg Q4HP PRN IV 05/11/25 13:45 Docusate Sodium 100 mg BIDPRN PRN PO 05/11/25 13:45 05/13/25 09:53 100 MG Morphine Sulfate 2 mg Q4HPRN PRN IV 05/11/25 13:45 05/14/25 01:37 2 MG Nitroglycerin 0.4 mg Q5MINP PRN SL 05/11/25 13:45 Morphine Sulfate 2 mg Q30M PRN IV 05/11/25 13:45 Vancomycin HCl 0 ml @ 0 mls/hr UD IV 05/11/25 13:45 Diagnostic Test (Pha) 1 strip Q6HR 05/11/25 18:00 05/14/25 11:39 1 STRIP Insulin Human Regular Q6HR SC 05/11/25 18:00 05/13/25 23:46 3 UNITS Dextrose 50 ml UD PRN IV 05/11/25 14:00 Acetaminophen 650 mg Q6HP PRN [place] 05/11/25 17:15 05/11/25 17:52 650 MG Sodium Chloride 1,000 ml @ 100 mls/hr Q10H IV 05/13/25 10:45 05/14/25 06:02 100 MLS/HR Heparin Sodium (Porcine) 5,000 units Q8HR SC 05/13/25 14:00 05/13/25 22:03 5,000 UNITS Ertapenem 0.5 gm/ Sodium Chloride 50 ml @ 100 mls/hr DAILY IV 05/13/25 15:45 05/14/25 09:41 100 MLS/HR Examination: GENERAL:Normal, MSK:Normal, :Abnormal laboratory and microbiology Laboratory Tests 05/14/25 04:45 Test 05/14/25 04:45 Range/Units Serum Glucose 105 74-106 mg/dL Microbiology Date/Time Source Procedure Growth Status 05/11/25 18:30 Urine - Painting Port Urine Culture - Final Escherichia coli - ESBL Complete 05/11/25 15:15 Nose MRSA Screen - Final Complete 05/11/25 09:11 Blood Blood Culture - Preliminary NO GROWTH AFTER 72 HOURS OF INCUBATION. Resulted Problem List/Assessment/Plan Problem List/Assessment/Plan 1) Hemodynamically mediated AARTI/VMN possible prerenal state and obstructive uropathy. 2) CKD ? 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 Ren[facility] specific 50gm protein as medically feasible 2) Monitor NPO status, lab values, I/O Expected Outcomes/Goals: To meet >75% estimated needs Fu 2-3 days GERRY BORGES MD May 14, 2025 15:45
--- NOTE | 2025-05-14 19:57 | DVH ---
CT CT GUIDANCE FOR NEEDLE PLACEME, HISTORY: RETROPERITONEAL ABSCESS DRAINAGE COMPARISON: None PROCEDURE: Informed consent was obtained. The patient was placed prone on the CT scanner. IV sedation was administered. The fluid collection was localized under CT scan and the overlying skin prepped wi th chlorhexidine which was allowed to dry and draped in the usual sterile fashion and infiltrated wit h Xylocaine. Time out was performed. With CT guidance, a 19-gauge centesis needle catheter was advanc ed via posterior approach into the fluid collection. Following aspiration of a small amount of fluid, a 0.035 wire was advanced into the fluid collection. Placement was confirmed with CT scan. After ser ial dilatation, a 8 Guamanian multipurpose pigtail drain was placed into the collection. Approximately 4 5 cc of purulent fluid was aspirated, with specimen sent for appropriate laboratory/cytology/laborato ry and cytology evaluation. The drain was sutured at the skin surface and connected to suction draina ge. No immediate complication was noted. Post procedure CT imaging through the drain site was obtaine d. DLP = 1785 mGy-cm. SEDATION: Dr. Henry Espinoza was personally responsible for the administration of moderate sedation during the procedure performed, including the use of an independent trained observer who had no other duties during the procedure. The drugs utilized were IV fentanyl and versed (see nursing log for details). The total time of supervision by the attending physician was approximately 45 minutes. FINDINGS: Limited CT scan of through the abdomen demonstrates a moderate sized fluid collection i n the left perinephric space. Collection appears complex . Post procedure scan shows pigtail drain within the collection , which is decreased in size. No immediate complication was identified. IMPRESSION: CT guided placement of 8 kinyarwanda pigtail drain into a left perinephric abscess with 45 mL purulent fluid removed. PLAN: Routine tube care.
[2025-05-15] VITALS (24 sets, daily range): BP systolic 122–180; BP diastolic 41–155; PULSE 61–79; RESP 16–24; TEMP 98.4–99.4; O2SAT 91–99
[2025-05-15 04:57] LABS: Hemoglobin 8.4 g/dL (12.2-16.2); Nucleated Red Blood Cells % 0.0 %
[2025-05-15 04:59] LABS: Hematocrit 25.0 % (36.0-46.0); Mean Corpuscular Hemoglobin 29.9 pg (28.0-32.0); Mean Corpuscular Volume 89.1 fL (80.0-100.0)
[2025-05-15 05:25] LABS: Chloride 105 mmol/L (98-107); Potassium 4.3 mmol/L (3.5-5.1); Sodium 137 mmol/L (136-145)
[2025-05-15 05:26] LABS: Anion Gap 11 (5-15); Carbon Dioxide 21 mmol/L (20-31)
[2025-05-15 05:31] LABS: BUN/Creatinine Ratio 16.8 (10.0-20.0)
[2025-05-15 05:55] LABS: Blood Urea Nitrogen 43 mg/dL (9-23); Calcium 8.7 mg/dL (8.7-10.4); Glucose 65 mg/dL (74-106)
[2025-05-15] MEDS: DEXTROSE (50%) 50ML SYRG IV PRN (06:01)
--- NOTE | 2025-05-15 07:21 | ECG ---
[facility] Test Date: 2025-05-11 Test Time: 20:17:05 Pat Name: NIA JEFFERSON Department: Room: 0237 Gender: F Pharmacology Teacher: VINICIO : 1940 Requested By: AUDREY CASTILLO Order Number: [id number] Reading MD: Jair Austin Measurements Intervals [place] Rate: 62 P: 24 WV: 182 QRS: -12 QRSD: 68 T: 11 QT: 436 QTc: 442 Interpretive Statements Normal sinus rhythm Electronically Signed On 05-17-2025 19:15:11 PDT by Jair Austin Please click the below link to view image of tracing.
--- NOTE | 2025-05-15 07:22 | ECG ---
[facility] Test Date: 2025-05-13 Test Time: 21:48:47 Pat Name: NIA JEFFERSON Department: Room: 0237 Gender: F Business Records Manager: : [id number] Requested By: HEMANTH MCINTYRE Order Number: [id number] Reading MD: Jair Austin Measurements Intervals [place] Rate: 66 P: 14 ID: [id number] QRS: -10 QRSD: 68 T: 12 QT: 422 QTc: 442 Interpretive Statements Normal sinus rhythm Electronically Signed On 05-17-2025 19:16:14 PDT by Jair Austin Please click the below link to view image of tracing.
[2025-05-15] MEDS: SOD CHL 0.45% 1,000 ML IV SCH (13:45)
[2025-05-15] MEDS: VANCOMYCIN 500mg/100mL 100 ML IV ONE (15:00)
--- NOTE | 2025-05-15 19:05 | DVHPN2 ---
Progress Note Date Seen: May 15, 2025 Has the PT tested + for MRSA If YES, has PT been informed?: No Medical Necessity Reason Pt with a Central, PICC or Fol: Yes The following are medically ne: Painting Catheter Reason for painting catheter: Hong. Abd Surgery, Strict I&O Subjective Patient reports: No new complaints, Feels better Review of Systems: Deferred Objective vital signs Vital Sign Date Time Temp Pulse Resp B/P (MAP) Pulse Ox O2 Delivery O2 Flow Rate FiO2 05/15/25 17:00 70 21 144/54 (84) 94 05/15/25 11:00 99.4 99.4 05/15/25 08:00 Nasal Cannula* 3 32 Total Intake and Output 05/14/25 05/14/25 05/15/25 15:00 23:00 07:00 Intake Total 650 ml 800 ml 850 ml Output Total 2650 ml 1700 ml Balance 650 ml -1850 ml -850 ml medications Current Medications Medications Dose Ordered Sig/Augustin Route Start Time Stop Time Status Last Admin Dose Admin Acetaminophen/ Hydrocodone Bitart 1 tab Q4HP PRN PO 05/11/25 13:45 05/13/25 20:48 1 TAB Ondansetron HCl 4 mg Q4HP PRN IV 05/11/25 13:45 Docusate Sodium 100 mg BIDPRN PRN PO 05/11/25 13:45 05/13/25 09:53 100 MG Morphine Sulfate 2 mg Q4HPRN PRN IV 05/11/25 13:45 05/14/25 01:37 2 MG Nitroglycerin 0.4 mg Q5MINP PRN SL 05/11/25 13:45 Morphine Sulfate 2 mg Q30M PRN IV 05/11/25 13:45 Vancomycin HCl 0 ml @ 0 mls/hr UD IV 05/11/25 13:45 Diagnostic Test (Pha) 1 strip Q6HR 05/11/25 18:00 05/15/25 12:25 1 STRIP Insulin Human Regular Q6HR SC 05/11/25 18:00 05/13/25 23:46 3 UNITS Dextrose 50 ml UD PRN IV 05/11/25 14:00 05/15/25 06:01 50 ML Acetaminophen 650 mg Q6HP PRN [place] 05/11/25 17:15 05/11/25 17:52 650 MG Heparin Sodium (Porcine) 5,000 units Q8HR SC 05/13/25 14:00 05/15/25 14:23 5,000 UNITS Ertapenem 0.5 gm/ Sodium Chloride 50 ml @ 100 mls/hr DAILY IV 05/13/25 15:45 05/15/25 10:00 100 MLS/HR Sodium Chloride 1,000 ml @ 50 mls/hr Q20H IV 05/15/25 13:45 05/15/25 13:45 50 MLS/HR Amlodipine Besylate 10 mg DAILY PO 05/16/25 10:00 Examination: GENERAL:Normal, ABDOMEN:Abnormal, NEURO:Normal laboratory and microbiology Laboratory Tests 05/15/25 04:30 Test 05/15/25 04:30 Range/Units Serum Glucose 65 L 74-106 mg/dL Microbiology Date/Time Source Procedure Growth Status 05/14/25 14:50 Aspirate Gram Stain - Final Resulted 05/14/25 14:50 Aspirate Body Fluid Culture - Preliminary Resulted 05/11/25 18:30 Urine - [place] Urine Culture - Final Escherichia coli - ESBL Complete 05/11/25 15:15 Nose MRSA Screen - Final Complete 05/11/25 09:11 Blood Blood Culture - Preliminary NO GROWTH AFTER 72 HOURS OF INCUBATION. Resulted Problem List/Assessment/Plan Problem List/Assessment/Plan 1) Hemodynamically mediated AARTI/VMN possible prerenal state and obstructive uropathy. 2) perinephric abscess s/p CT guided placement of 8 arg[place] pigtail drain into a left perinephric abscess with 45 mL purulent fluid removed. 3) bilateral nephrolithiasis with bilateral obstructive uropathy s/p bilateral ureteral stents, 4) hypertension REC: reduce ivf rate -bp high add amlodipine as bp high Abx per primary renally dose to gfr Plan discussed with: Patient My Orders My Orders Orders - GERRY BORGES MD Procedure Category Date Status Time Sod Chl 0.45% (Sodium PHA 05/15/25 In Process Chloride 0.45% Via 13:45 Amlodipine Tablet PHA 05/16/25 In Process (Norvasc Tablet) 10:00 Dietary Evaluation Review Comments: 1) Advance to [facility] 60gm + Renal specific 50gm protein as medically feasible 2) Monitor NPO status, lab values, I/O Expected Outcomes/Goals: To meet >75% estimated needs Fu 2-3 days GERRY BORGES MD May 15, 2025 19:05
[2025-05-16] VITALS (25 sets, daily range): BP systolic 121–181; BP diastolic 44–127; PULSE 60–87; RESP 14–27; TEMP 98–99; O2SAT 94–99
[2025-05-16 05:17] LABS: Chloride 105 mmol/L (98-107); Potassium 3.9 mmol/L (3.5-5.1); Sodium 138 mmol/L (136-145)
[2025-05-16 05:18] LABS: Anion Gap 11 (5-15); Carbon Dioxide 22 mmol/L (20-31)
[2025-05-16 05:23] LABS: Hemoglobin 8.0 g/dL (12.2-16.2)
[2025-05-16 05:24] LABS: BUN/Creatinine Ratio 16.4 (10.0-20.0); Calcium 8.0 mg/dL (8.7-10.4); Glucose 95 mg/dL (74-106)
[2025-05-16 05:25] LABS: Blood Urea Nitrogen 37 mg/dL (9-23)
[2025-05-16 05:27] LABS: Hematocrit 24.5 % (36.0-46.0); Mean Corpuscular Hemoglobin 29.1 pg (28.0-32.0); Mean Corpuscular Volume 88.7 fL (80.0-100.0)
[2025-05-16 06:31] LABS: Total Cells Counted 100.0 (100)
--- NOTE | 2025-05-16 10:43 | DVHPN2 ---
Subjective Patient denies any symptoms. Currently at procedure. Reviewed: H&P Changes from previous H/P or p: No Changes General: Per HPI Eyes: No Pain, No Vision change, No Conjunctivae inflammation, No Eyelid inflammation, No Other, No Redness ENT: No Ear pain, No Ear discharge, No Nose pain, No Nose discharge, No Nose congestion, No Mouth pain, No Mouth swelling, No Throat pain, No Throat swelling, No Other Cardiovascular: No Chest Pain, No Palpitations, No Orthopnea, No Paroxysmal Noc. Dyspnea, No Edema, No Lt Headedness, No Other Respiratory: No Cough, No Dry, No Shortness of breath, No SOB with excertion, No Wheezing, No Hemoptysis, No Pleuritic Pain, No Sputum, No Other Gastrointestinal: No Nausea, No Vomiting; Abdominal Pain; No Diarrhea, No Constipation, No Melena, No Hematochezia, No Other Genitourinary: No Dysuria; Frequency; No Incontinence, No Hematuria, No Retention; Other (less urine) Musculoskeletal: No other, No neck pain, No shoulder pain, No arm pain, No back pain, No hand pain, No leg pain, No foot pain Skin: No Rash, No Lesions, No Jaundice, No Bruising, No Other Objective Vitals Vital Signs Date Time Temp Pulse Resp B/P (MAP) Pulse Ox O2 Delivery O2 Flow Rate FiO2 05/16/25 10:11 179/79 05/16/25 07:00 78 17 98 05/16/25 04:00 98.5 98.5 05/15/25 20:00 Nasal Cannula* 3 32 Intake/Output Intake and Output 05/16/25 07:00 Intake Total 2300 ml Output Total 5095 ml Balance -2795 ml Intake Oral 850 ml IV Total 1450 ml Output Urine Total 5050 ml Drainage Total 45 ml # Bowel Movements 1 General Appearance: Alert, Oriented X3, Cooperative, mild distress HEENT: Atraumatic, PERRLA Cardiovascular: Normal S1, Normal S2 Abdomen: Normal bowel sounds Skin: Dry, Intact Psych/Mental Status: Mental status NL, Mood NL Medications Current Medications Medications Dose Ordered Sig/Augustin Route Start Time Stop Time Status Last Admin Dose Admin Acetaminophen/ Hydrocodone Bitart 1 tab Q4HP PRN PO 05/11/25 13:45 05/13/25 20:48 1 TAB Ondansetron HCl 4 mg Q4HP PRN IV 05/11/25 13:45 Docusate Sodium 100 mg BIDPRN PRN PO 05/11/25 13:45 05/13/25 09:53 100 MG Morphine Sulfate 2 mg Q4HPRN PRN IV 05/11/25 13:45 05/14/25 01:37 2 MG Nitroglycerin 0.4 mg Q5MINP PRN SL 05/11/25 13:45 Morphine Sulfate 2 mg Q30M PRN IV 05/11/25 13:45 Vancomycin HCl 0 ml @ 0 mls/hr UD IV 05/11/25 13:45 Diagnostic Test (Pha) 1 strip Q6HR 05/11/25 18:00 05/16/25 06:06 1 STRIP Insulin Human Regular Q6HR SC 05/11/25 18:00 05/13/25 23:46 3 UNITS Dextrose 50 ml UD PRN IV 05/11/25 14:00 05/15/25 06:01 50 ML Acetaminophen 650 mg Q6HP PRN [place] 05/11/25 17:15 05/11/25 17:52 650 MG Heparin Sodium (Porcine) 5,000 units Q8HR SC 05/13/25 14:00 05/16/25 05:57 5,000 UNITS Ertapenem 0.5 gm/ Sodium Chloride 50 ml @ 100 mls/hr DAILY IV 05/13/25 15:45 05/16/25 09:57 100 MLS/HR Sodium Chloride 1,000 ml @ 50 mls/hr Q20H IV 05/15/25 13:45 05/16/25 09:57 50 MLS/HR Amlodipine Besylate 10 mg DAILY PO 05/16/25 10:00 05/16/25 10:11 10 MG Hydralazine HCl 10 mg Q6HP PRN IV 05/16/25 09:45 Laboratory Results Laboratory Tests 05/16/25 04:51 Chemistry Test 05/16/25 04:51 Calcium Level 8.0 mg/dL (8.7-10.4) L Urinalysis Test 05/11/25 08:06 Urine Color Colorless (Yellow) Urine Clarity Turbid (Clear) H Urine pH 6.0 (5.0-9.0) Urine Specific [place] 1.004 (1.001-1.035) Urine Protein 1+ (Negative) H Urine Ketones Negative (Negative) Urine Blood 1+ /uL (Negative) H Urine Nitrite Negative (Negative) Urine Bilirubin Negative (Negative) Urine Urobilinogen Normal mg/dL (Negative) Urine Leukocyte Esterase 3+ /uL (Negative) Urine RBC 16 /hpf (0 - 4) Urine WBC Clumps Present /hpf (None Seen) Urine Microscopic WBC 137 /HPF (0-5) H Urine Squamous Epithelial Cells Mod /hpf (<5) Urine Bacteria Many /hpf (None Seen) H Urine Mucus Few (None Seen) Urine Creatinine 11.55 mg/dL (30.0-125.0) L Urine Sodium 88 mmol/L (40-220) Urine Glucose Normal mg/dL (Normal) Microbiology Microbiology Date/Time Source Procedure Growth Status 05/14/25 14:50 Aspirate Gram Stain - Final Resulted 05/14/25 14:50 Aspirate Body Fluid Culture - Preliminary Resulted 05/11/25 18:30 Urine - [place] Urine Culture - Final Escherichia coli - ESBL Complete 05/11/25 15:15 Nose MRSA Screen - Final Complete 05/11/25 09:11 Blood Blood Culture - Final NO GROWTH AFTER 5 DAYS OF INCUBATION. Complete Labs and/or images reviewed: Labs reviewed by me, Image(s) reviewed by me Assessment/Plan Assessment/Plan Impression: -severe sepsis -probable underlying chronic kidney disease with acute kidney injury -obstructive uropathy -bilateral hydronephrosis with renal calculi -complicated cystitis with ESBL in the urine -left abdominal abscess,? Fistula next to left kidney -normocytic anemia Plan: Events: No events overnight. WBC normal. Tolerating liquids -Advance diet -change antibiotic therapy to Invanz -Transfer to Medical/ Surgical floor -repeat labs in a.m. Total time spent with patient discussing and formulating plan of care: 35 minutes. This medical document was created using an electronic medical record system with [employer] dictation system. Although this document has been carefully reviewed, there may still be some phonetic and typographical errors. These areas are purely typographical due to imperfections of the software programs, and do not reflect any compromise in the patient's medical care. Plan discussed with: Patient, Other (RN) My Orders Orders - SANTIAGO DYSON NP Procedure Category Date Status Time Transfer Orders XFER 05/16/25 Transmitted 09:31 Hydralazine Injection PHA 05/16/25 In Process (Apresoline Inject 09:45 Mechanical Soft Diet DIET 05/16/25 Transmitted Lunch Date of Service: May 16, 2025 Billing Provider: SANTIAGO DYSON NP Common Visit Codes: [id number] INP/OBS CARE(HIGH) SANTIAGO DYSON NP May 16, 2025 10:43
--- NOTE | 2025-05-16 18:47 | DVHPN2 ---
Progress Note Date Seen: May 16, 2025 Has the PT tested + for MRSA If YES, has PT been informed?: No Medical Necessity Reason Pt with a Central, PICC or Fol: Yes The following are medically ne: Painting Catheter Reason for painting catheter: Hong. Abd Surgery, Strict I&O Subjective Patient reports: No new complaints, Feels better Review of Systems: Deferred Objective vital signs Vital Sign Date Time Temp Pulse Resp B/P (MAP) Pulse Ox O2 Delivery O2 Flow Rate FiO2 05/16/25 18:00 72 20 121/50 (73) 97 05/16/25 16:00 99.0 99.0 05/16/25 08:00 Nasal Cannula* 3 32 Total Intake and Output 05/15/25 05/15/25 05/16/25 15:00 23:00 07:00 Intake Total 650 ml 850 ml 800 ml Output Total 2365 ml 2730 ml Balance 650 ml -1515 ml -1930 ml medications Current Medications Medications Dose Ordered Sig/Augustin Route Start Time Stop Time Status Last Admin Dose Admin Acetaminophen/ Hydrocodone Bitart 1 tab Q4HP PRN PO 05/11/25 13:45 05/13/25 20:48 1 TAB Ondansetron HCl 4 mg Q4HP PRN IV 05/11/25 13:45 Docusate Sodium 100 mg BIDPRN PRN PO 05/11/25 13:45 05/13/25 09:53 100 MG Morphine Sulfate 2 mg Q4HPRN PRN IV 05/11/25 13:45 05/14/25 01:37 2 MG Nitroglycerin 0.4 mg Q5MINP PRN SL 05/11/25 13:45 Morphine Sulfate 2 mg Q30M PRN IV 05/11/25 13:45 Vancomycin HCl 0 ml @ 0 mls/hr UD IV 05/11/25 13:45 Diagnostic Test (Pha) 1 strip Q6HR 05/11/25 18:00 05/16/25 18:00 1 STRIP Insulin Human Regular Q6HR SC 05/11/25 18:00 05/16/25 13:14 3 UNITS Dextrose 50 ml UD PRN IV 05/11/25 14:00 05/15/25 06:01 50 ML Acetaminophen 650 mg Q6HP PRN [place] 05/11/25 17:15 05/11/25 17:52 650 MG Heparin Sodium (Porcine) 5,000 units Q8HR SC 05/13/25 14:00 05/16/25 14:00 5,000 UNITS Ertapenem 0.5 gm/ Sodium Chloride 50 ml @ 100 mls/hr DAILY IV 05/13/25 15:45 05/16/25 09:57 100 MLS/HR Amlodipine Besylate 10 mg DAILY PO 05/16/25 10:00 05/16/25 10:11 10 MG Hydralazine HCl 10 mg Q6HP PRN IV 05/16/25 09:45 Hydralazine HCl 50 mg Q12HR PO 05/16/25 22:00 Examination: GENERAL:Abnormal, LUNGS:Normal, LUNGS:Abnormal, MSK:Normal, SKIN:Normal, NEURO:Normal, :Normal laboratory and microbiology Laboratory Tests 05/16/25 04:51 Test 05/16/25 04:51 Range/Units Serum Glucose 95 74-106 mg/dL Microbiology Date/Time Source Procedure Growth Status 05/14/25 14:50 Aspirate Gram Stain - Final Resulted 05/14/25 14:50 Aspirate Body Fluid Culture - Preliminary Resulted 05/11/25 18:30 Urine - [place] Urine Culture - Final Escherichia coli - ESBL Complete 05/11/25 15:15 Nose MRSA Screen - Final Complete 05/11/25 09:11 Blood Blood Culture - Final NO GROWTH AFTER 5 DAYS OF INCUBATION. Complete Problem List/Assessment/Plan Problem List/Assessment/Plan 1) Hemodynamically mediated AARTI/VMN sec to severe sepsis and obstructive uropathy. 2) perinephric abscess s/p CT guided placement of 8 malay pigtail drain into a left perinephric abscess with 45 mL purulent fluid removed. 3) bilateral nephrolithiasis with bilateral obstructive uropathy s/p bilateral ureteral stents, 4) hypertension REC: dc ivf add amlodipine,hydralazine as bp high Abx per primary renally dose to gfr Plan discussed with: Patient My Orders My Orders Orders - GERRY BORGES MD Procedure Category Date Status Time Hydralazine Hcl PHA 05/16/25 In Process Tablet (Apresoline 22:00 Communication Order ORDERS 05/16/25 Transmitted 17:02 Dietary Evaluation Review Comments: 1) Advance to [facility] 60gm + Renal specific 50gm protein as medically feasible 2) Monitor NPO status, lab values, I/O Expected Outcomes/Goals: To meet >75% estimated needs Fu 2-3 days GERRY BORGES MD May 16, 2025 18:47
[2025-05-17] VITALS (7 sets, daily range): BP systolic 128–157; BP diastolic 60–76; PULSE 71–78; RESP 17–20; TEMP 97.1–99; O2SAT 97–98
[2025-05-17 05:59] LABS: Chloride 103 mmol/L (98-107); Hematocrit 28.8 % (36.0-46.0); Hemoglobin 9.5 g/dL (12.2-16.2); Mean Corpuscular Hemoglobin 29.1 pg (28.0-32.0); Mean Corpuscular Volume 88.0 fL (80.0-100.0); Potassium 4.1 mmol/L (3.5-5.1)
[2025-05-17 06:00] LABS: Anion Gap 11 (5-15); Calcium 8.7 mg/dL (8.7-10.4); Carbon Dioxide 21 mmol/L (20-31); Sodium 135 mmol/L (136-145)
[2025-05-17 06:05] LABS: BUN/Creatinine Ratio 17.0 (10.0-20.0)
[2025-05-17 06:14] LABS: Blood Urea Nitrogen 38 mg/dL (9-23); Glucose 108 mg/dL (74-106)
[2025-05-17 07:02] LABS: Total Cells Counted 100.0 (100)
--- NOTE | 2025-05-17 12:52 | DVHPN2 ---
Progress Note Date Seen: May 17, 2025 Has the PT tested + for MRSA If YES, has PT been informed?: No Medical Necessity Reason Pt with a Central, PICC or Fol: Yes The following are medically ne: Painting Catheter Reason for painting catheter: Hong. Abd Surgery, Strict I&O Subjective Patient reports: No new complaints Review of Systems: Deferred Objective vital signs Vital Sign Date Time Temp Pulse Resp B/P (MAP) Pulse Ox O2 Delivery O2 Flow Rate FiO2 05/17/25 10:34 149/68 05/17/25 09:00 97.4 71 17 98 97.4 05/17/25 08:00 Nasal Cannula* 3 32 Total Intake and Output 05/16/25 05/16/25 05/17/25 15:00 23:00 07:00 Intake Total 450 ml 1180 ml 400 ml Output Total 1650 ml 650 ml Balance 450 ml -470 ml -250 ml medications Current Medications Medications Dose Ordered Sig/Augustin Route Start Time Stop Time Status Last Admin Dose Admin Acetaminophen/ Hydrocodone Bitart 1 tab Q4HP PRN PO 05/11/25 13:45 05/13/25 20:48 1 TAB Ondansetron HCl 4 mg Q4HP PRN IV 05/11/25 13:45 Docusate Sodium 100 mg BIDPRN PRN PO 05/11/25 13:45 05/13/25 09:53 100 MG Morphine Sulfate 2 mg Q4HPRN PRN IV 05/11/25 13:45 05/14/25 01:37 2 MG Nitroglycerin 0.4 mg Q5MINP PRN SL 05/11/25 13:45 Morphine Sulfate 2 mg Q30M PRN IV 05/11/25 13:45 Vancomycin HCl 0 ml @ 0 mls/hr UD IV 05/11/25 13:45 Diagnostic Test (Pha) 1 strip Q6HR 05/11/25 18:00 05/17/25 11:16 1 STRIP Insulin Human Regular Q6HR SC 05/11/25 18:00 05/17/25 11:30 3 UNITS Dextrose 50 ml UD PRN IV 05/11/25 14:00 05/15/25 06:01 50 ML Acetaminophen 650 mg Q6HP PRN [place] 05/11/25 17:15 05/11/25 17:52 650 MG Heparin Sodium (Porcine) 5,000 units Q8HR SC 05/13/25 14:00 05/17/25 06:05 5,000 UNITS Ertapenem 0.5 gm/ Sodium Chloride 50 ml @ 100 mls/hr DAILY IV 05/13/25 15:45 05/17/25 10:33 100 MLS/HR Amlodipine Besylate 10 mg DAILY PO 05/16/25 10:00 05/17/25 10:33 10 MG Hydralazine HCl 10 mg Q6HP PRN IV 05/16/25 09:45 Hydralazine HCl 50 mg Q12HR PO 05/16/25 22:00 05/17/25 10:34 50 MG Examination: GENERAL:Normal, HEENT:Normal, NECK:Normal, LUNGS:Normal, CVS:Normal, ABDOMEN:Normal, MSK:Normal, SKIN:Normal, NEURO:Normal, :Normal laboratory and microbiology Laboratory Tests 05/17/25 05:21 Test 05/17/25 05:21 Range/Units Serum Glucose 108 H 74-106 mg/dL Microbiology Date/Time Source Procedure Growth Status 05/14/25 14:50 Aspirate Gram Stain - Final Resulted 05/14/25 14:50 Aspirate Body Fluid Culture - Preliminary Resulted 05/11/25 18:30 Urine - [place] Urine Culture - Final Escherichia coli - ESBL Complete 05/11/25 15:15 Nose MRSA Screen - Final Complete 05/11/25 09:11 Blood Blood Culture - Final NO GROWTH AFTER 5 DAYS OF INCUBATION. Complete Problem List/Assessment/Plan Problem List/Assessment/Plan 1) Hemodynamically mediated AARTI/VMN sec to severe sepsis and obstructive uropathy. 2) perinephric abscess s/p CT guided placement of 8 [place] pigtail drain into a left perinephric abscess with 45 mL purulent fluid removed. 3) bilateral nephrolithiasis with bilateral obstructive uropathy s/p bilateral ureteral stents, 4) hypertension REC: dc ivf add amlodipine,hydralazine as bp high Abx per primary renally dose to gfr Plan discussed with: Daughter My Orders My Orders Orders - GERRY BORGES MD Procedure Category Date Status Time Hydralazine Hcl PHA 05/16/25 In Process Tablet (Apresoline 22:00 Communication Order ORDERS 05/16/25 Transmitted 17:02 Dietary Evaluation Review Comments: 1) Advance to [facility] 60gm + Renal specific 50gm protein as medically feasible 2) Monitor NPO status, lab values, I/O Expected Outcomes/Goals: To meet >75% estimated needs Fu 2-3 days GERRY BORGES MD May 17, 2025 12:52
--- NOTE | 2025-05-17 13:14 | DVHPN2 ---
Subjective Patient denies any symptoms. Currently at procedure. Reviewed: H&P Changes from previous H/P or p: No Changes General: Per HPI Eyes: No Pain, No Vision change, No Conjunctivae inflammation, No Eyelid inflammation, No Other, No Redness ENT: No Ear pain, No Ear discharge, No Nose pain, No Nose discharge, No Nose congestion, No Mouth pain, No Mouth swelling, No Throat pain, No Throat swelling, No Other Cardiovascular: No Chest Pain, No Palpitations, No Orthopnea, No Paroxysmal Noc. Dyspnea, No Edema, No Lt Headedness, No Other Respiratory: No Cough, No Dry, No Shortness of breath, No SOB with excertion, No Wheezing, No Hemoptysis, No Pleuritic Pain, No Sputum, No Other Gastrointestinal: No Nausea, No Vomiting; Abdominal Pain; No Diarrhea, No Constipation, No Melena, No Hematochezia, No Other Genitourinary: No Dysuria; Frequency; No Incontinence, No Hematuria, No Retention; Other (less urine) Musculoskeletal: No other, No neck pain, No shoulder pain, No arm pain, No back pain, No hand pain, No leg pain, No foot pain Skin: No Rash, No Lesions, No Jaundice, No Bruising, No Other Objective Vitals Vital Signs Date Time Temp Pulse Resp B/P (MAP) Pulse Ox O2 Delivery O2 Flow Rate FiO2 05/17/25 10:34 149/68 05/17/25 09:00 97.4 71 17 98 97.4 05/17/25 08:00 Nasal Cannula* 3 32 Intake/Output Intake and Output 05/17/25 07:00 Intake Total 2030 ml Output Total 2300 ml Balance -270 ml Intake Oral 880 ml IV Total 1150 ml Output Urine Total 2275 ml Drainage Total 25 ml # Bowel Movements 2 General Appearance: Alert, Oriented X3, Cooperative, mild distress HEENT: Atraumatic, PERRLA Cardiovascular: Normal S1, Normal S2 Abdomen: Normal bowel sounds Skin: Dry, Intact Psych/Mental Status: Mental status NL, Mood NL Medications Current Medications Medications Dose Ordered Sig/Augustin Route Start Time Stop Time Status Last Admin Dose Admin Acetaminophen/ Hydrocodone Bitart 1 tab Q4HP PRN PO 05/11/25 13:45 05/13/25 20:48 1 TAB Ondansetron HCl 4 mg Q4HP PRN IV 05/11/25 13:45 Docusate Sodium 100 mg BIDPRN PRN PO 05/11/25 13:45 05/13/25 09:53 100 MG Morphine Sulfate 2 mg Q4HPRN PRN IV 05/11/25 13:45 05/14/25 01:37 2 MG Nitroglycerin 0.4 mg Q5MINP PRN SL 05/11/25 13:45 Morphine Sulfate 2 mg Q30M PRN IV 05/11/25 13:45 Vancomycin HCl 0 ml @ 0 mls/hr UD IV 05/11/25 13:45 Diagnostic Test (Pha) 1 strip Q6HR 05/11/25 18:00 05/17/25 11:16 1 STRIP Insulin Human Regular Q6HR SC 05/11/25 18:00 05/17/25 11:30 3 UNITS Dextrose 50 ml UD PRN IV 05/11/25 14:00 05/15/25 06:01 50 ML Acetaminophen 650 mg Q6HP PRN [place] 05/11/25 17:15 05/11/25 17:52 650 MG Heparin Sodium (Porcine) 5,000 units Q8HR SC 05/13/25 14:00 05/17/25 06:05 5,000 UNITS Ertapenem 0.5 gm/ Sodium Chloride 50 ml @ 100 mls/hr DAILY IV 05/13/25 15:45 05/17/25 10:33 100 MLS/HR Amlodipine Besylate 10 mg DAILY PO 05/16/25 10:00 05/17/25 10:33 10 MG Hydralazine HCl 10 mg Q6HP PRN IV 05/16/25 09:45 Hydralazine HCl 50 mg Q12HR PO 05/16/25 22:00 05/17/25 10:34 50 MG Laboratory Results Laboratory Tests 05/17/25 05:21 Chemistry Test 05/17/25 05:21 Calcium Level 8.7 mg/dL (8.7-10.4) Urinalysis Test 05/11/25 08:06 Urine Color Colorless (Yellow) Urine Clarity Turbid (Clear) H Urine pH 6.0 (5.0-9.0) Urine Specific [place] 1.004 (1.001-1.035) Urine Protein 1+ (Negative) H Urine Ketones Negative (Negative) Urine Blood 1+ /uL (Negative) H Urine Nitrite Negative (Negative) Urine Bilirubin Negative (Negative) Urine Urobilinogen Normal mg/dL (Negative) Urine Leukocyte Esterase 3+ /uL (Negative) Urine RBC 16 /hpf (0 - 4) Urine WBC Clumps Present /hpf (None Seen) Urine Microscopic WBC 137 /HPF (0-5) H Urine Squamous Epithelial Cells Mod /hpf (<5) Urine Bacteria Many /hpf (None Seen) H Urine Mucus Few (None Seen) Urine Creatinine 11.55 mg/dL (30.0-125.0) L Urine Sodium 88 mmol/L (40-220) Urine Glucose Normal mg/dL (Normal) Microbiology Microbiology Date/Time Source Procedure Growth Status 05/14/25 14:50 Aspirate Gram Stain - Final Resulted 05/14/25 14:50 Aspirate Body Fluid Culture - Preliminary Resulted 05/11/25 18:30 Urine - [place] Urine Culture - Final Escherichia coli - ESBL Complete 05/11/25 15:15 Nose MRSA Screen - Final Complete 05/11/25 09:11 Blood Blood Culture - Final NO GROWTH AFTER 5 DAYS OF INCUBATION. Complete Labs and/or images reviewed: Labs reviewed by me, Image(s) reviewed by me Assessment/Plan Assessment/Plan Impression: -severe sepsis -probable underlying chronic kidney disease with acute kidney injury -obstructive uropathy -bilateral hydronephrosis with renal calculi -complicated cystitis with ESBL in the urine -left abdominal abscess,? Fistula next to left kidney -normocytic anemia Plan: Events: No events overnight. WBC normal. Tolerating liquids -Advance diet -change antibiotic therapy to Invanz -Transfer to Medical/ Surgical floor -repeat labs in a.m. Total time spent with patient discussing and formulating plan of care: 35 minutes. This medical document was created using an electronic medical record system with [employer] dictation system. Although this document has been carefully reviewed, there may still be some phonetic and typographical errors. These areas are purely typographical due to imperfections of the software programs, and do not reflect any compromise in the patient's medical care. Plan discussed with: Patient, Other (RN) Date of Service: May 17, 2025 Billing Provider: SANTIAGO DYSON NP Common Visit Codes: [id number] INP/OBS CARE(HIGH) SANTIAGO DYSON NP May 17, 2025 13:14
[2025-05-17] MEDS: VANCOMYCIN 500mg/100mL 100 ML IV ONE (15:18)
[2025-05-18] VITALS (7 sets, daily range): BP systolic 119–154; BP diastolic 61–71; PULSE 72–80; RESP 16–20; TEMP 97.6–98.2; O2SAT 95–98
[2025-05-18] MEDS: hydrALAZINE HCL 20 MG/ML VL IV PRN (05:18)
[2025-05-18 06:39] LABS: Hematocrit 26.3 % (36.0-46.0); Hemoglobin 8.9 g/dL (12.2-16.2); Mean Corpuscular Hemoglobin 29.6 pg (28.0-32.0); Mean Corpuscular Volume 87.7 fL (80.0-100.0); Nucleated Red Blood Cells % 0.0 %
[2025-05-18 06:40] LABS: Chloride 101 mmol/L (98-107); Potassium 4.3 mmol/L (3.5-5.1)
[2025-05-18 06:41] LABS: Anion Gap 10 (5-15); Carbon Dioxide 21 mmol/L (20-31)
[2025-05-18 06:46] LABS: BUN/Creatinine Ratio 17.8 (10.0-20.0)
[2025-05-18 06:48] LABS: Blood Urea Nitrogen 39 mg/dL (9-23); Calcium 8.1 mg/dL (8.7-10.4); Glucose 109 mg/dL (74-106); Sodium 132 mmol/L (136-145)
--- NOTE | 2025-05-18 15:37 | DVHPN2 ---
Subjective Patient denies any symptoms. Currently at procedure. Reviewed: H&P Changes from previous H/P or p: No Changes General: Per HPI Eyes: No Pain, No Vision change, No Conjunctivae inflammation, No Eyelid inflammation, No Other, No Redness ENT: No Ear pain, No Ear discharge, No Nose pain, No Nose discharge, No Nose congestion, No Mouth pain, No Mouth swelling, No Throat pain, No Throat swelling, No Other Cardiovascular: No Chest Pain, No Palpitations, No Orthopnea, No Paroxysmal Noc. Dyspnea, No Edema, No Lt Headedness, No Other Respiratory: No Cough, No Dry, No Shortness of breath, No SOB with excertion, No Wheezing, No Hemoptysis, No Pleuritic Pain, No Sputum, No Other Gastrointestinal: No Nausea, No Vomiting; Abdominal Pain; No Diarrhea, No Constipation, No Melena, No Hematochezia, No Other Genitourinary: No Dysuria; Frequency; No Incontinence, No Hematuria, No Retention; Other (less urine) Musculoskeletal: No other, No neck pain, No shoulder pain, No arm pain, No back pain, No hand pain, No leg pain, No foot pain Skin: No Rash, No Lesions, No Jaundice, No Bruising, No Other Objective Vitals Vital Signs Date Time Temp Pulse Resp B/P (MAP) Pulse Ox O2 Delivery O2 Flow Rate FiO2 05/18/25 13:00 97.9 77 16 119/61 (80) 97 97.9 05/18/25 08:00 Nasal Cannula* 3 32 Intake/Output Intake and Output 05/18/25 07:00 Intake Total 1750 ml Output Total 2800 ml Balance -1050 ml Intake Oral 1600 ml IV Total 150 ml Output Urine Total 2800 ml # Bowel Movements 1 General Appearance: Alert, Oriented X3, Cooperative, mild distress HEENT: Atraumatic, PERRLA Cardiovascular: Normal S1, Normal S2 Abdomen: Normal bowel sounds Neuro: Cranial nerves 3-12 NL Skin: Dry, Intact Psych/Mental Status: Mental status NL, Mood NL Medications Current Medications Medications Dose Ordered Sig/Augustin Route Start Time Stop Time Status Last Admin Dose Admin Acetaminophen/ Hydrocodone Bitart 1 tab Q4HP PRN PO 05/11/25 13:45 05/13/25 20:48 1 TAB Ondansetron HCl 4 mg Q4HP PRN IV 05/11/25 13:45 Docusate Sodium 100 mg BIDPRN PRN PO 05/11/25 13:45 05/13/25 09:53 100 MG Morphine Sulfate 2 mg Q4HPRN PRN IV 05/11/25 13:45 05/14/25 01:37 2 MG Nitroglycerin 0.4 mg Q5MINP PRN SL 05/11/25 13:45 Morphine Sulfate 2 mg Q30M PRN IV 05/11/25 13:45 Vancomycin HCl 0 ml @ 0 mls/hr UD IV 05/11/25 13:45 Diagnostic Test (Pha) 1 strip Q6HR 05/11/25 18:00 05/18/25 11:59 1 STRIP Insulin Human Regular Q6HR SC 05/11/25 18:00 05/18/25 12:02 3 UNITS Dextrose 50 ml UD PRN IV 05/11/25 14:00 05/15/25 06:01 50 ML Acetaminophen 650 mg Q6HP PRN [place] 05/11/25 17:15 05/11/25 17:52 650 MG Heparin Sodium (Porcine) 5,000 units Q8HR SC 05/13/25 14:00 05/18/25 14:23 5,000 UNITS Ertapenem 0.5 gm/ Sodium Chloride 50 ml @ 100 mls/hr DAILY IV 05/13/25 15:45 05/18/25 09:36 100 MLS/HR Amlodipine Besylate 10 mg DAILY PO 05/16/25 10:00 05/18/25 09:36 10 MG Hydralazine HCl 10 mg Q6HP PRN IV 05/16/25 09:45 05/18/25 05:18 10 MG Hydralazine HCl 50 mg Q12HR PO 05/16/25 22:00 05/18/25 09:35 50 MG Laboratory Results Laboratory Tests 05/18/25 05:50 Chemistry Test 05/18/25 05:50 Calcium Level 8.1 mg/dL (8.7-10.4) L Urinalysis Test 05/11/25 08:06 Urine Color Colorless (Yellow) Urine Clarity Turbid (Clear) H Urine pH 6.0 (5.0-9.0) Urine Specific [place] 1.004 (1.001-1.035) Urine Protein 1+ (Negative) H Urine Ketones Negative (Negative) Urine Blood 1+ /uL (Negative) H Urine Nitrite Negative (Negative) Urine Bilirubin Negative (Negative) Urine Urobilinogen Normal mg/dL (Negative) Urine Leukocyte Esterase 3+ /uL (Negative) Urine RBC 16 /hpf (0 - 4) Urine WBC Clumps Present /hpf (None Seen) Urine Microscopic WBC 137 /HPF (0-5) H Urine Squamous Epithelial Cells Mod /hpf (<5) Urine Bacteria Many /hpf (None Seen) H Urine Mucus Few (None Seen) Urine Creatinine 11.55 mg/dL (30.0-125.0) L Urine Sodium 88 mmol/L (40-220) Urine Glucose Normal mg/dL (Normal) Microbiology Microbiology Date/Time Source Procedure Growth Status 05/14/25 14:50 Aspirate Gram Stain - Final Resulted 05/14/25 14:50 Aspirate Body Fluid Culture - Preliminary Resulted 05/11/25 18:30 Urine - [place] Urine Culture - Final Escherichia coli - ESBL Complete 05/11/25 15:15 Nose MRSA Screen - Final Complete 05/11/25 09:11 Blood Blood Culture - Final NO GROWTH AFTER 5 DAYS OF INCUBATION. Complete Labs and/or images reviewed: Labs reviewed by me, Image(s) reviewed by me Assessment/Plan Assessment/Plan Impression: -severe sepsis -probable underlying chronic kidney disease with acute kidney injury -obstructive uropathy -bilateral hydronephrosis with renal calculi -complicated cystitis with ESBL in the urine -left abdominal abscess,? Fistula next to left kidney -normocytic anemia Plan: Events: No events overnight. WBC normal. -out of bed with nursing -Advance diet -change antibiotic therapy to Invanz -repeat CT scan in a.m. -repeat labs in a.m. Total time spent with patient discussing and formulating plan of care: 35 minutes. This medical document was created using an electronic medical record system with [employer] dictation system. Although this document has been carefully reviewed, there may still be some phonetic and typographical errors. These areas are purely typographical due to imperfections of the software programs, and do not reflect any compromise in the patient's medical care. Plan discussed with: Patient, Other (RN) Date of Service: May 18, 2025 Billing Provider: SANTIAGO DYSON NP Common Visit Codes: [id number] INP/OBS CARE(HIGH) SANTIAGO DYSON NP May 18, 2025 15:37
--- NOTE | 2025-05-18 19:57 | DVHPN2 ---
Progress Note Date Seen: May 18, 2025 Has the PT tested + for MRSA If YES, has PT been informed?: No Medical Necessity Reason Pt with a Central, PICC or Fol: Yes The following are medically ne: Painting Catheter Reason for painting catheter: Hong. Abd Surgery, Strict I&O Subjective Patient reports: No new complaints Review of Systems: Deferred Objective vital signs Vital Sign Date Time Temp Pulse Resp B/P (MAP) Pulse Ox O2 Delivery O2 Flow Rate FiO2 05/18/25 16:51 98.1 72 16 132/64 (86) 97 98.1 05/18/25 08:00 Nasal Cannula* 3 32 Total Intake and Output 05/17/25 05/17/25 05/18/25 15:00 23:00 07:00 Intake Total 50 ml 100 ml 1600 ml Output Total 2800 ml Balance 50 ml 100 ml -1200 ml medications Current Medications Medications Dose Ordered Sig/Augustin Route Start Time Stop Time Status Last Admin Dose Admin Acetaminophen/ Hydrocodone Bitart 1 tab Q4HP PRN PO 05/11/25 13:45 05/13/25 20:48 1 TAB Ondansetron HCl 4 mg Q4HP PRN IV 05/11/25 13:45 Docusate Sodium 100 mg BIDPRN PRN PO 05/11/25 13:45 05/13/25 09:53 100 MG Morphine Sulfate 2 mg Q4HPRN PRN IV 05/11/25 13:45 05/14/25 01:37 2 MG Nitroglycerin 0.4 mg Q5MINP PRN SL 05/11/25 13:45 Morphine Sulfate 2 mg Q30M PRN IV 05/11/25 13:45 Diagnostic Test (Pha) 1 strip Q6HR 05/11/25 18:00 05/18/25 17:27 1 STRIP Insulin Human Regular Q6HR SC 05/11/25 18:00 05/18/25 12:02 3 UNITS Dextrose 50 ml UD PRN IV 05/11/25 14:00 05/15/25 06:01 50 ML Acetaminophen 650 mg Q6HP PRN [place] 05/11/25 17:15 05/11/25 17:52 650 MG Heparin Sodium (Porcine) 5,000 units Q8HR SC 05/13/25 14:00 05/18/25 14:23 5,000 UNITS Ertapenem 0.5 gm/ Sodium Chloride 50 ml @ 100 mls/hr DAILY IV 05/13/25 15:45 05/18/25 09:36 100 MLS/HR Amlodipine Besylate 10 mg DAILY PO 05/16/25 10:00 05/18/25 09:36 10 MG Hydralazine HCl 10 mg Q6HP PRN IV 05/16/25 09:45 05/18/25 05:18 10 MG Hydralazine HCl 50 mg Q12HR PO 05/16/25 22:00 05/18/25 09:35 50 MG Examination: GENERAL:Normal, HEENT:Normal, NECK:Normal, LUNGS:Normal, CVS:Normal, ABDOMEN:Normal, MSK:Normal, SKIN:Normal, NEURO:Normal, :Abnormal laboratory and microbiology Laboratory Tests 05/18/25 05:50 Test 05/18/25 05:50 Range/Units Serum Glucose 109 H 74-106 mg/dL Microbiology Date/Time Source Procedure Growth Status 05/14/25 14:50 Aspirate Gram Stain - Final Resulted 05/14/25 14:50 Aspirate Body Fluid Culture - Preliminary Resulted 05/11/25 18:30 Urine - [place] Urine Culture - Final Escherichia coli - ESBL Complete 05/11/25 15:15 Nose MRSA Screen - Final Complete 05/11/25 09:11 Blood Blood Culture - Final NO GROWTH AFTER 5 DAYS OF INCUBATION. Complete Problem List/Assessment/Plan Problem List/Assessment/Plan 1) Hemodynamically mediated AARTI/VMN sec to severe sepsis and obstructive uropathy. 2) perinephric abscess s/p CT guided placement of 8 wolof pigtail drain into a left perinephric abscess with 45 mL purulent fluid removed. 3) bilateral nephrolithiasis with bilateral obstructive uropathy s/p bilateral ureteral stents, 4) hypertension REC: Stable renal function Abx per primary renally dose to gfr Plan discussed with: Patient, Daughter Dietary Evaluation Review Comments: 1) [facility] + Renal specific 50gm protein as medically feasible 2) Monitor NPO status, lab values, I/O Expected Outcomes/Goals: To meet >75% estimated needs Fu 2-3 days GERRY BORGES MD May 18, 2025 19:57
[2025-05-19] VITALS (7 sets, daily range): BP systolic 119–152; BP diastolic 59–81; PULSE 75–81; RESP 16–21; TEMP 96.7–98; O2SAT 92–99
--- NOTE | 2025-05-19 08:24 | DVHPN2 ---
Progress Note Date Seen: May 19, 2025 Has the PT tested + for MRSA If YES, has PT been informed?: No Medical Necessity Reason Pt with a Central, PICC or Fol: Yes The following are medically ne: Painting Catheter Reason for painting catheter: Hong. Abd Surgery, Strict I&O Subjective Patient reports: No new complaints Review of Systems: Deferred Objective vital signs Vital Sign Date Time Temp Pulse Resp B/P (MAP) Pulse Ox O2 Delivery O2 Flow Rate FiO2 05/19/25 08:20 96.7 76 17 130/81 (97) 99 96.7 05/18/25 20:00 Nasal Cannula* 3 32 Total Intake and Output 05/18/25 05/18/25 05/19/25 15:00 23:00 07:00 Intake Total 50 ml 1200 ml 850 ml Output Total 750 ml 600 ml Balance 50 ml 450 ml 250 ml medications Current Medications Medications Dose Ordered Sig/Augustin Route Start Time Stop Time Status Last Admin Dose Admin Acetaminophen/ Hydrocodone Bitart 1 tab Q4HP PRN PO 05/11/25 13:45 05/13/25 20:48 1 TAB Ondansetron HCl 4 mg Q4HP PRN IV 05/11/25 13:45 Docusate Sodium 100 mg BIDPRN PRN PO 05/11/25 13:45 05/13/25 09:53 100 MG Morphine Sulfate 2 mg Q4HPRN PRN IV 05/11/25 13:45 05/14/25 01:37 2 MG Nitroglycerin 0.4 mg Q5MINP PRN SL 05/11/25 13:45 Morphine Sulfate 2 mg Q30M PRN IV 05/11/25 13:45 Diagnostic Test (Pha) 1 strip Q6HR 05/11/25 18:00 05/18/25 17:27 1 STRIP Insulin Human Regular Q6HR SC 05/11/25 18:00 05/18/25 12:02 3 UNITS Dextrose 50 ml UD PRN IV 05/11/25 14:00 05/15/25 06:01 50 ML Acetaminophen 650 mg Q6HP PRN [place] 05/11/25 17:15 05/11/25 17:52 650 MG Heparin Sodium (Porcine) 5,000 units Q8HR SC 05/13/25 14:00 05/19/25 06:21 5,000 UNITS Ertapenem 0.5 gm/ Sodium Chloride 50 ml @ 100 mls/hr DAILY IV 05/13/25 15:45 05/18/25 09:36 100 MLS/HR Amlodipine Besylate 10 mg DAILY PO 05/16/25 10:00 05/18/25 09:36 10 MG Hydralazine HCl 10 mg Q6HP PRN IV 05/16/25 09:45 05/18/25 05:18 10 MG Hydralazine HCl 50 mg Q12HR PO 05/16/25 22:00 05/18/25 22:11 50 MG Examination: GENERAL:Normal, HEENT:Normal, NECK:Normal, LUNGS:Normal, CVS:Normal, ABDOMEN:Normal, MSK:Normal, SKIN:Normal, NEURO:Normal, :Abnormal laboratory and microbiology Laboratory Tests 05/18/25 05:50 Test 05/18/25 05:50 Range/Units Serum Glucose 109 H 74-106 mg/dL Microbiology Date/Time Source Procedure Growth Status 05/14/25 14:50 Aspirate Gram Stain - Final Resulted 05/14/25 14:50 Aspirate Body Fluid Culture - Preliminary Resulted 05/11/25 18:30 Urine - [place] Urine Culture - Final Escherichia coli - ESBL Complete 05/11/25 15:15 Nose MRSA Screen - Final Complete 05/11/25 09:11 Blood Blood Culture - Final NO GROWTH AFTER 5 DAYS OF INCUBATION. Complete Problem List/Assessment/Plan Problem List/Assessment/Plan 1) Hemodynamically mediated AARTI/VMN sec to severe sepsis and obstructive uropathy. 2) perinephric abscess s/p CT guided placement of 8 uzbek pigtail drain into a left perinephric abscess with 45 mL purulent fluid removed. 3) bilateral nephrolithiasis with bilateral obstructive uropathy s/p bilateral ureteral stents, 4) hypertension REC: Stable renal function Abx per primary renally dose to gfr I will sign off this case please reconsult if needed Plan discussed with: Patient Dietary Evaluation Review Comments: 1) Advance to [facility] 60gm + Renal specific 50gm protein as medically feasible 2) Monitor NPO status, lab values, I/O Expected Outcomes/Goals: To meet >75% estimated needs Fu 2-3 days GERRY BORGES MD May 19, 2025 08:24
--- NOTE | 2025-05-19 13:28 | DVHPN2 ---
Subjective Patient denies any symptoms. Currently at procedure. Reviewed: H&P Changes from previous H/P or p: No Changes General: Per HPI Eyes: No Pain, No Vision change, No Conjunctivae inflammation, No Eyelid inflammation, No Other, No Redness ENT: No Ear pain, No Ear discharge, No Nose pain, No Nose discharge, No Nose congestion, No Mouth pain, No Mouth swelling, No Throat pain, No Throat swelling, No Other Cardiovascular: No Chest Pain, No Palpitations, No Orthopnea, No Paroxysmal Noc. Dyspnea, No Edema, No Lt Headedness, No Other Respiratory: No Cough, No Dry, No Shortness of breath, No SOB with excertion, No Wheezing, No Hemoptysis, No Pleuritic Pain, No Sputum, No Other Gastrointestinal: No Nausea, No Vomiting; Abdominal Pain; No Diarrhea, No Constipation, No Melena, No Hematochezia, No Other Genitourinary: No Dysuria; Frequency; No Incontinence, No Hematuria, No Retention; Other (less urine) Musculoskeletal: No other, No neck pain, No shoulder pain, No arm pain, No back pain, No hand pain, No leg pain, No foot pain Skin: No Rash, No Lesions, No Jaundice, No Bruising, No Other Objective Vitals Vital Signs Date Time Temp Pulse Resp B/P (MAP) Pulse Ox O2 Delivery O2 Flow Rate FiO2 05/19/25 12:55 97.1 75 21 131/64 (86) 97 97.1 05/19/25 08:00 Room Air* 0 21 Intake/Output Intake and Output 05/19/25 06:59 Intake Total 2100 ml Output Total 1350 ml Balance 750 ml Intake Oral 2050 ml IV Total 50 ml Output Urine Total 1350 ml General Appearance: Alert, Oriented X3, Cooperative, mild distress HEENT: Atraumatic, PERRLA Cardiovascular: Normal S1, Normal S2 Abdomen: Normal bowel sounds Neuro: Cranial nerves 3-12 NL Skin: Dry, Intact Psych/Mental Status: Mental status NL, Mood NL Medications Current Medications Medications Dose Ordered Sig/Augustin Route Start Time Stop Time Status Last Admin Dose Admin Acetaminophen/ Hydrocodone Bitart 1 tab Q4HP PRN PO 05/11/25 13:45 05/13/25 20:48 1 TAB Ondansetron HCl 4 mg Q4HP PRN IV 05/11/25 13:45 Docusate Sodium 100 mg BIDPRN PRN PO 05/11/25 13:45 05/13/25 09:53 100 MG Morphine Sulfate 2 mg Q4HPRN PRN IV 05/11/25 13:45 05/14/25 01:37 2 MG Nitroglycerin 0.4 mg Q5MINP PRN SL 05/11/25 13:45 Morphine Sulfate 2 mg Q30M PRN IV 05/11/25 13:45 Diagnostic Test (Pha) 1 strip Q6HR 05/11/25 18:00 05/19/25 11:40 1 STRIP Insulin Human Regular Q6HR SC 05/11/25 18:00 05/19/25 11:40 3 UNITS Dextrose 50 ml UD PRN IV 05/11/25 14:00 05/15/25 06:01 50 ML Acetaminophen 650 mg Q6HP PRN [place] 05/11/25 17:15 05/11/25 17:52 650 MG Heparin Sodium (Porcine) 5,000 units Q8HR SC 05/13/25 14:00 05/19/25 06:21 5,000 UNITS Ertapenem 0.5 gm/ Sodium Chloride 50 ml @ 100 mls/hr DAILY IV 05/13/25 15:45 05/19/25 09:38 100 MLS/HR Amlodipine Besylate 10 mg DAILY PO 05/16/25 10:00 05/19/25 09:06 10 MG Hydralazine HCl 10 mg Q6HP PRN IV 05/16/25 09:45 05/18/25 05:18 10 MG Hydralazine HCl 50 mg Q12HR PO 05/16/25 22:00 05/18/25 22:11 50 MG Laboratory Results Laboratory Tests 05/18/25 05:50 Urinalysis Test 05/11/25 08:06 Urine Color Colorless (Yellow) Urine Clarity Turbid (Clear) H Urine pH 6.0 (5.0-9.0) Urine Specific [place] 1.004 (1.001-1.035) Urine Protein 1+ (Negative) H Urine Ketones Negative (Negative) Urine Blood 1+ /uL (Negative) H Urine Nitrite Negative (Negative) Urine Bilirubin Negative (Negative) Urine Urobilinogen Normal mg/dL (Negative) Urine Leukocyte Esterase 3+ /uL (Negative) Urine RBC 16 /hpf (0 - 4) Urine WBC Clumps Present /hpf (None Seen) Urine Microscopic WBC 137 /HPF (0-5) H Urine Squamous Epithelial Cells Mod /hpf (<5) Urine Bacteria Many /hpf (None Seen) H Urine Mucus Few (None Seen) Urine Creatinine 11.55 mg/dL (30.0-125.0) L Urine Sodium 88 mmol/L (40-220) Urine Glucose Normal mg/dL (Normal) Microbiology Microbiology Date/Time Source Procedure Growth Status 05/14/25 14:50 Aspirate Gram Stain - Final Complete 05/14/25 14:50 Aspirate Body Fluid Culture - Final Complete 05/11/25 18:30 Urine - [place] Urine Culture - Final Escherichia coli - ESBL Complete 05/11/25 15:15 Nose MRSA Screen - Final Complete 05/11/25 09:11 Blood Blood Culture - Final NO GROWTH AFTER 5 DAYS OF INCUBATION. Complete Labs and/or images reviewed: Labs reviewed by me, Image(s) reviewed by me Assessment/Plan Assessment/Plan Impression: -severe sepsis -probable underlying chronic kidney disease with acute kidney injury -obstructive uropathy -bilateral hydronephrosis with renal calculi -complicated cystitis with ESBL in the urine -left abdominal abscess,? Fistula next to left kidney -normocytic anemia Plan: Events: No events overnight. -Repeat CT scan -out of bed with nursing -change antibiotic therapy to Invanz -PUD prophylaxis -repeat labs in a.m. Total time spent with patient discussing and formulating plan of care: 35 minutes. This medical document was created using an electronic medical record system with [employer] dictation system. Although this document has been carefully reviewed, there may still be some phonetic and typographical errors. These areas are purely typographical due to imperfections of the software programs, and do not reflect any compromise in the patient's medical care. Plan discussed with: Patient, Other (RN) My Orders Orders - SANTIAGO DYSON NP Procedure Category Date Status Time Basic Metabolic Panel LAB 05/20/25 Verified 04:00 Urinalysis LAB 05/19/25 Logged 13:20 Ct Ab Pel Wo Con-No CT 05/19/25 Logged Oral Or Iv 13:20 Date of Service: May 19, 2025 Billing Provider: SANTIAGO DYSON NP Common Visit Codes: [id number] INP/OBS CARE(HIGH) SANTIAGO DYSON NP May 19, 2025 13:28
--- NOTE | 2025-05-19 17:23 | DVH ---
Exam: CT CT AB PEL WO CON-NO ORAL OR IV History: reassess abscess Comparison Study: CT CT AB PEL WO CON-NO ORAL OR IV on DOS: 05/11/25 TECHNIQUE: Multidetector CT of the abdomen pelvis without IV contrast. Axial, coronal and sagittal mu ltiplanar reformats were obtained from the axial data set by the technologist. Radiation Dose Information: CT Dose: CTDI volume is 13.42 mGy. Dose-length product is 701.91 mGy*cm FINDINGS: Moderate bilateral pleural effusions with associated atelectasis. Partially visualized heart is charli l in size. 3.1 x 4 cm partially calcified lesion within the liver ; relatively unchanged from prior imaging. Oth erwise liver, spleen, gallbladder, pancreas and adrenal glands unremarkable. Interval placement of a left upper back approach pigtail catheter into the fluid collection posterior to the left kidney with interval decrease in size of the fluid collection and foci of air. Fat stra nding adjacent to The left kidney. Punctate nonobstructing left renal calculus. Mild right with moderate left-sided perinephric fat stra nding. Severe atrophy of the left kidney with [id number] left hydro nephrosis. Bilateral doubl e-J stents with the proximal end within the renal pelvises and the distal end within the urinary blad gabo. Wang catheter is noted in place. Urinary bladder is decompressed. Wall calcification of the uterus. Complex cystic lesion within the right hemipelvis measuring about 3 .8 x 3.5 x 4.3 cm with fatty component which may represent a dermoid cyst. Stomach is unremarkable. Small bowel loops unremarkable. Appendix is normal in size. Trace ascites l imits evaluation for periappendiceal inflammatory reaction. Small to moderate amount of fecal materia l within the colon with moderate amount of fecal material within the rectum. No evidence of intraperitoneal free air. Trace ascites. No evidence of aortic aneurysm. Mild atherosclerotic calcification of the aorta. Slightly prominent retroperitoneal lymph nodes measuring up to 0.9 cm in short axis which may be reac tive. [id number] abdominal body wall edema. Hemangioma within the L2 vertebral body. Diffuse deminera lization. No destructive osseous lesions are noted. IMPRESSION: Interval placement of left upper black approach pigtail terminating within the left-sided perinephric abscess with interval decrease in size of the abscess. [id number] left hydronephrosis with severe atrophy of the left kidney and bilateral double-J st ent in place. Mild right with moderate left-sided perinephric fat stranding. Infectious process can not be exclude d. Trace ascites. Moderate bilateral pleural effusions with associated atelectasis. Additional findings as above.
[2025-05-20] VITALS (8 sets, daily range): BP systolic 122–134; BP diastolic 54–71; PULSE 72–84; RESP 16–19; TEMP 96.7–98; O2SAT 93–96
[2025-05-20 05:58] LABS: Anion Gap 10 (5-15); Carbon Dioxide 20 mmol/L (20-31); Potassium 4.7 mmol/L (3.5-5.1)
[2025-05-20 06:04] LABS: BUN/Creatinine Ratio 17.9 (10.0-20.0)
[2025-05-20 06:11] LABS: Blood Urea Nitrogen 40 mg/dL (9-23); Calcium 8.5 mg/dL (8.7-10.4); Chloride 97 mmol/L (98-107); Glucose 109 mg/dL (74-106); Sodium 127 mmol/L (136-145)
--- NOTE | 2025-05-20 12:51 | DVHPN2 ---
Subjective Patient denies any symptoms. Currently at procedure. Reviewed: H&P Changes from previous H/P or p: No Changes General: Per HPI Eyes: No Pain, No Vision change, No Conjunctivae inflammation, No Eyelid inflammation, No Other, No Redness ENT: No Ear pain, No Ear discharge, No Nose pain, No Nose discharge, No Nose congestion, No Mouth pain, No Mouth swelling, No Throat pain, No Throat swelling, No Other Cardiovascular: No Chest Pain, No Palpitations, No Orthopnea, No Paroxysmal Noc. Dyspnea, No Edema, No Lt Headedness, No Other Respiratory: No Cough, No Dry, No Shortness of breath, No SOB with excertion, No Wheezing, No Hemoptysis, No Pleuritic Pain, No Sputum, No Other Gastrointestinal: No Nausea, No Vomiting; Abdominal Pain; No Diarrhea, No Constipation, No Melena, No Hematochezia, No Other Genitourinary: No Dysuria; Frequency; No Incontinence, No Hematuria, No Retention; Other (less urine) Musculoskeletal: No other, No neck pain, No shoulder pain, No arm pain, No back pain, No hand pain, No leg pain, No foot pain Skin: No Rash, No Lesions, No Jaundice, No Bruising, No Other Objective Vitals Vital Signs Date Time Temp Pulse Resp B/P (MAP) Pulse Ox O2 Delivery O2 Flow Rate FiO2 05/20/25 12:28 96.8 76 18 125/71 (89) 94 96.8 05/19/25 20:00 Nasal Cannula* 3 32 Intake/Output Intake and Output 05/20/25 07:00 Intake Total 4360 ml Output Total 2310 ml Balance 2050 ml Intake Oral 4310 ml IV Total 50 ml Output Urine Total 2300 ml Drainage Total 10 ml # Bowel Movements 2 General Appearance: Alert, Oriented X3, Cooperative, mild distress HEENT: Atraumatic, PERRLA Cardiovascular: Normal S1, Normal S2 Abdomen: Normal bowel sounds Neuro: Cranial nerves 3-12 NL Skin: Dry, Intact Psych/Mental Status: Mental status NL, Mood NL Medications Current Medications Medications Dose Ordered Sig/Augustin Route Start Time Stop Time Status Last Admin Dose Admin Acetaminophen/ Hydrocodone Bitart 1 tab Q4HP PRN PO 05/11/25 13:45 05/13/25 20:48 1 TAB Ondansetron HCl 4 mg Q4HP PRN IV 05/11/25 13:45 Docusate Sodium 100 mg BIDPRN PRN PO 05/11/25 13:45 05/13/25 09:53 100 MG Morphine Sulfate 2 mg Q4HPRN PRN IV 05/11/25 13:45 05/14/25 01:37 2 MG Nitroglycerin 0.4 mg Q5MINP PRN SL 05/11/25 13:45 Morphine Sulfate 2 mg Q30M PRN IV 05/11/25 13:45 Diagnostic Test (Pha) 1 strip Q6HR 05/11/25 18:00 05/20/25 12:23 1 STRIP Insulin Human Regular Q6HR SC 05/11/25 18:00 05/20/25 12:23 2 UNITS Dextrose 50 ml UD PRN IV 05/11/25 14:00 05/15/25 06:01 50 ML Heparin Sodium (Porcine) 5,000 units Q8HR SC 05/13/25 14:00 05/20/25 06:22 5,000 UNITS Ertapenem 0.5 gm/ Sodium Chloride 50 ml @ 100 mls/hr DAILY IV 05/13/25 15:45 05/20/25 09:01 100 MLS/HR Amlodipine Besylate 10 mg DAILY PO 05/16/25 10:00 05/20/25 09:02 10 MG Hydralazine HCl 10 mg Q6HP PRN IV 05/16/25 09:45 05/18/25 05:18 10 MG Hydralazine HCl 50 mg Q12HR PO 05/16/25 22:00 05/20/25 09:03 50 MG Laboratory Results Laboratory Tests 05/18/25 05:50 05/20/25 05:05 Chemistry Test 05/20/25 05:05 Calcium Level 8.5 mg/dL (8.7-10.4) L Urinalysis Test 05/11/25 08:06 Urine Color Colorless (Yellow) Urine Clarity Turbid (Clear) H Urine pH 6.0 (5.0-9.0) Urine Specific [place] 1.004 (1.001-1.035) Urine Protein 1+ (Negative) H Urine Ketones Negative (Negative) Urine Blood 1+ /uL (Negative) H Urine Nitrite Negative (Negative) Urine Bilirubin Negative (Negative) Urine Urobilinogen Normal mg/dL (Negative) Urine Leukocyte Esterase 3+ /uL (Negative) Urine RBC 16 /hpf (0 - 4) Urine WBC Clumps Present /hpf (None Seen) Urine Microscopic WBC 137 /HPF (0-5) H Urine Squamous Epithelial Cells Mod /hpf (<5) Urine Bacteria Many /hpf (None Seen) H Urine Mucus Few (None Seen) Urine Creatinine 11.55 mg/dL (30.0-125.0) L Urine Sodium 88 mmol/L (40-220) Urine Glucose Normal mg/dL (Normal) Microbiology Microbiology Date/Time Source Procedure Growth Status 05/14/25 14:50 Aspirate Gram Stain - Final Complete 05/14/25 14:50 Aspirate Body Fluid Culture - Final Complete 05/11/25 18:30 Urine - [place] Urine Culture - Final Escherichia coli - ESBL Complete 05/11/25 15:15 Nose MRSA Screen - Final Complete 05/11/25 09:11 Blood Blood Culture - Final NO GROWTH AFTER 5 DAYS OF INCUBATION. Complete Labs and/or images reviewed: Labs reviewed by me, Image(s) reviewed by me Assessment/Plan Assessment/Plan Impression: -severe sepsis -probable underlying chronic kidney disease with acute kidney injury -obstructive uropathy -bilateral hydronephrosis with renal calculi -complicated cystitis with ESBL in the urine -left abdominal abscess,? Fistula next to left kidney -normocytic anemia Plan: Events: No events overnight. Repeat CT scan reviewed. Continues to have posterior perinephric abscess -discussed plan of care with the patient's family -out of bed with nursing -change antibiotic therapy to Invanz -PUD prophylaxis -repeat labs in a.m. Total time spent with patient discussing and formulating plan of care: 35 minutes. This medical document was created using an electronic medical record system with [employer] dictation system. Although this document has been carefully reviewed, there may still be some phonetic and typographical errors. These areas are purely typographical due to imperfections of the software programs, and do not reflect any compromise in the patient's medical care. Plan discussed with: Patient, Other (RN) My Orders Orders - SANTIAGO DYSON MARINE OPERATIONS COORDINATOR Procedure Category Date Status Time Urinalysis LAB 05/19/25 Logged 13:20 Ct Ab Pel Wo Con-No CT 05/19/25 Resulted Oral Or Iv 13:20 Date of Service: May 20, 2025 Billing Provider: SANTIAGO DYSON NP Common Visit Codes: [id number] INP/OBS CARE(HIGH) SANTIAGO DYSON NP May 20, 2025 12:51
[2025-05-21] VITALS (8 sets, daily range): BP systolic 121–140; BP diastolic 51–93; PULSE 73–85; RESP 15–18; TEMP 97.9–98.3; O2SAT 92–95
--- NOTE | 2025-05-21 13:12 | DVHPN2 ---
Subjective Patient denies any symptoms. Currently at procedure. Reviewed: H&P Changes from previous H/P or p: No Changes General: Per HPI Eyes: No Pain, No Vision change, No Conjunctivae inflammation, No Eyelid inflammation, No Other, No Redness ENT: No Ear pain, No Ear discharge, No Nose pain, No Nose discharge, No Nose congestion, No Mouth pain, No Mouth swelling, No Throat pain, No Throat swelling, No Other Cardiovascular: No Chest Pain, No Palpitations, No Orthopnea, No Paroxysmal Noc. Dyspnea, No Edema, No Lt Headedness, No Other Respiratory: No Cough, No Dry, No Shortness of breath, No SOB with excertion, No Wheezing, No Hemoptysis, No Pleuritic Pain, No Sputum, No Other Gastrointestinal: No Nausea, No Vomiting; Abdominal Pain; No Diarrhea, No Constipation, No Melena, No Hematochezia, No Other Genitourinary: No Dysuria; Frequency; No Incontinence, No Hematuria, No Retention; Other (less urine) Musculoskeletal: No other, No neck pain, No shoulder pain, No arm pain, No back pain, No hand pain, No leg pain, No foot pain Skin: No Rash, No Lesions, No Jaundice, No Bruising, No Other Objective Vitals Vital Signs Date Time Temp Pulse Resp B/P (MAP) Pulse Ox O2 Delivery O2 Flow Rate FiO2 05/21/25 10:14 137/57 05/21/25 09:00 98.1 77 15 93 98.1 05/21/25 07:50 Room Air* 0 21 Intake/Output Intake and Output 05/21/25 07:00 Intake Total 1420 ml Output Total 1275 ml Balance 145 ml Intake Oral 1420 ml Output Urine Total 1250 ml Drainage Total 25 ml General Appearance: Alert, Oriented X3, Cooperative, mild distress HEENT: Atraumatic, PERRLA Cardiovascular: Normal S1, Normal S2 Abdomen: Normal bowel sounds Neuro: Cranial nerves 3-12 NL Skin: Dry, Intact Psych/Mental Status: Mental status NL, Mood NL Medications Current Medications Medications Dose Ordered Sig/Augustin Route Start Time Stop Time Status Last Admin Dose Admin Acetaminophen/ Hydrocodone Bitart 1 tab Q4HP PRN PO 05/11/25 13:45 05/13/25 20:48 1 TAB Ondansetron HCl 4 mg Q4HP PRN IV 05/11/25 13:45 Docusate Sodium 100 mg BIDPRN PRN PO 05/11/25 13:45 05/13/25 09:53 100 MG Morphine Sulfate 2 mg Q4HPRN PRN IV 05/11/25 13:45 05/14/25 01:37 2 MG Nitroglycerin 0.4 mg Q5MINP PRN SL 05/11/25 13:45 Morphine Sulfate 2 mg Q30M PRN IV 05/11/25 13:45 Diagnostic Test (Pha) 1 strip Q6HR 05/11/25 18:00 05/21/25 12:03 1 STRIP Insulin Human Regular Q6HR SC 05/11/25 18:00 05/21/25 12:04 2 UNITS Dextrose 50 ml UD PRN IV 05/11/25 14:00 05/15/25 06:01 50 ML Heparin Sodium (Porcine) 5,000 units Q8HR SC 05/13/25 14:00 05/21/25 05:36 5,000 UNITS Ertapenem 0.5 gm/ Sodium Chloride 50 ml @ 100 mls/hr DAILY IV 05/13/25 15:45 05/21/25 10:15 100 MLS/HR Amlodipine Besylate 10 mg DAILY PO 05/16/25 10:00 05/21/25 10:14 10 MG Hydralazine HCl 10 mg Q6HP PRN IV 05/16/25 09:45 05/18/25 05:18 10 MG Hydralazine HCl 50 mg Q12HR PO 05/16/25 22:00 05/21/25 10:14 50 MG Laboratory Results Laboratory Tests 05/18/25 05:50 05/20/25 05:05 Urinalysis Test 05/11/25 08:06 Urine Color Colorless (Yellow) Urine Clarity Turbid (Clear) H Urine pH 6.0 (5.0-9.0) Urine Specific [place] 1.004 (1.001-1.035) Urine Protein 1+ (Negative) H Urine Ketones Negative (Negative) Urine Blood 1+ /uL (Negative) H Urine Nitrite Negative (Negative) Urine Bilirubin Negative (Negative) Urine Urobilinogen Normal mg/dL (Negative) Urine Leukocyte Esterase 3+ /uL (Negative) Urine RBC 16 /hpf (0 - 4) Urine WBC Clumps Present /hpf (None Seen) Urine Microscopic WBC 137 /HPF (0-5) H Urine Squamous Epithelial Cells Mod /hpf (<5) Urine Bacteria Many /hpf (None Seen) H Urine Mucus Few (None Seen) Urine Creatinine 11.55 mg/dL (30.0-125.0) L Urine Sodium 88 mmol/L (40-220) Urine Glucose Normal mg/dL (Normal) Microbiology Microbiology Date/Time Source Procedure Growth Status 05/14/25 14:50 Aspirate Gram Stain - Final Complete 05/14/25 14:50 Aspirate Body Fluid Culture - Final Complete 05/11/25 18:30 Urine - [place] Urine Culture - Final Escherichia coli - ESBL Complete 05/11/25 15:15 Nose MRSA Screen - Final Complete 05/11/25 09:11 Blood Blood Culture - Final NO GROWTH AFTER 5 DAYS OF INCUBATION. Complete Labs and/or images reviewed: Labs reviewed by me, Image(s) reviewed by me Assessment/Plan Assessment/Plan Impression: -severe sepsis -probable underlying chronic kidney disease with acute kidney injury -obstructive uropathy -bilateral hydronephrosis with renal calculi -complicated cystitis with ESBL in the urine -left abdominal abscess,? Fistula next to left kidney -normocytic anemia -hyponatremia Plan: Events: No events overnight. -discussed plan of care with the patient's family -out of bed with nursing. Patient not receiving enough physical activity, encouragement by nursing. Start physical therapy -continue Invanz -PUD prophylaxis -repeat labs in a.m. Total time spent with patient discussing and formulating plan of care: 35 minutes. This medical document was created using an electronic medical record system with [employer] dictation system. Although this document has been carefully reviewed, there may still be some phonetic and typographical errors. These areas are purely typographical due to imperfections of the software programs, and do not reflect any compromise in the patient's medical care. Plan discussed with: Patient, Other (RN) My Orders Orders - SANTIAGO DYSON NP Procedure Category Date Status Time Basic Metabolic Panel LAB 05/22/25 Verified 04:00 Date of Service: May 21, 2025 Billing Provider: SANTIAGO DYSON NP Common Visit Codes: [id number] INP/OBS CARE(HIGH) SANTIAGO DYSON NP May 21, 2025 13:12
[2025-05-22 01:00] VITALS: BP 130/65; PULSE 78; RESP 18; TEMP 97.7; O2SAT 96
[2025-05-22 05:00] VITALS: BP 129/61; PULSE 70; RESP 18; TEMP 98.1; O2SAT 95
[2025-05-22 07:13] LABS: Potassium 4.7 mmol/L (3.5-5.1)
[2025-05-22 07:14] LABS: Anion Gap 9 (5-15); Carbon Dioxide 20 mmol/L (20-31)
[2025-05-22 07:19] LABS: BUN/Creatinine Ratio 17.1 (10.0-20.0); Glucose 101 mg/dL (74-106)
[2025-05-22 07:20] LABS: Blood Urea Nitrogen 39 mg/dL (9-23); Calcium 8.4 mg/dL (8.7-10.4); Chloride 96 mmol/L (98-107); Sodium 125 mmol/L (136-145)
[2025-05-22 08:00] VITALS: PULSE 71; RESP 18; O2SAT 95
[2025-05-22 09:00] VITALS: BP 131/58; PULSE 76; RESP 14; TEMP 98.3; O2SAT 96
--- NOTE | 2025-05-22 12:13 | DVHPN2 ---
Subjective Patient denies any symptoms. Currently at procedure. Reviewed: H&P Changes from previous H/P or p: No Changes General: Per HPI Eyes: No Pain, No Vision change, No Conjunctivae inflammation, No Eyelid inflammation, No Other, No Redness ENT: No Ear pain, No Ear discharge, No Nose pain, No Nose discharge, No Nose congestion, No Mouth pain, No Mouth swelling, No Throat pain, No Throat swelling, No Other Cardiovascular: No Chest Pain, No Palpitations, No Orthopnea, No Paroxysmal Noc. Dyspnea, No Edema, No Lt Headedness, No Other Respiratory: No Cough, No Dry, No Shortness of breath, No SOB with excertion, No Wheezing, No Hemoptysis, No Pleuritic Pain, No Sputum, No Other Gastrointestinal: No Nausea, No Vomiting; Abdominal Pain; No Diarrhea, No Constipation, No Melena, No Hematochezia, No Other Genitourinary: No Dysuria; Frequency; No Incontinence, No Hematuria, No Retention; Other (less urine) Musculoskeletal: No other, No neck pain, No shoulder pain, No arm pain, No back pain, No hand pain, No leg pain, No foot pain Skin: No Rash, No Lesions, No Jaundice, No Bruising, No Other Objective Vitals Vital Signs Date Time Temp Pulse Resp B/P (MAP) Pulse Ox O2 Delivery O2 Flow Rate FiO2 05/22/25 10:11 132/64 05/22/25 09:00 98.3 76 14 96 98.3 05/21/25 20:00 Room Air* 0 21 Intake/Output Intake and Output 05/22/25 07:00 Intake Total 1060 ml Output Total 1400 ml Balance -340 ml Intake Oral 1010 ml IV Total 50 ml Output Urine Total 1400 ml # Bowel Movements 1 General Appearance: Alert, Oriented X3, Cooperative, mild distress HEENT: Atraumatic, PERRLA Cardiovascular: Normal S1, Normal S2 Abdomen: Normal bowel sounds Neuro: Cranial nerves 3-12 NL Skin: Dry, Intact Psych/Mental Status: Mental status NL, Mood NL Medications Current Medications Medications Dose Ordered Sig/Augustin Route Start Time Stop Time Status Last Admin Dose Admin Acetaminophen/ Hydrocodone Bitart 1 tab Q4HP PRN PO 05/11/25 13:45 05/13/25 20:48 1 TAB Ondansetron HCl 4 mg Q4HP PRN IV 05/11/25 13:45 Docusate Sodium 100 mg BIDPRN PRN PO 05/11/25 13:45 05/13/25 09:53 100 MG Morphine Sulfate 2 mg Q4HPRN PRN IV 05/11/25 13:45 05/14/25 01:37 2 MG Nitroglycerin 0.4 mg Q5MINP PRN SL 05/11/25 13:45 Morphine Sulfate 2 mg Q30M PRN IV 05/11/25 13:45 Diagnostic Test (Pha) 1 strip Q6HR 05/11/25 18:00 05/22/25 05:48 1 STRIP Insulin Human Regular Q6HR SC 05/11/25 18:00 05/21/25 18:16 2 UNITS Dextrose 50 ml UD PRN IV 05/11/25 14:00 05/15/25 06:01 50 ML Heparin Sodium (Porcine) 5,000 units Q8HR SC 05/13/25 14:00 05/22/25 05:50 5,000 UNITS Ertapenem 0.5 gm/ Sodium Chloride 50 ml @ 100 mls/hr DAILY IV 05/13/25 15:45 05/22/25 10:12 100 MLS/HR Hydralazine HCl 10 mg Q6HP PRN IV 05/16/25 09:45 05/18/25 05:18 10 MG Hydralazine HCl 50 mg Q12HR PO 05/16/25 22:00 05/22/25 10:11 50 MG Laboratory Results Laboratory Tests 05/18/25 05:50 05/22/25 06:36 Chemistry Test 05/22/25 06:36 Calcium Level 8.4 mg/dL (8.7-10.4) L Urinalysis Test 05/11/25 08:06 05/22/25 12:00 Urine Color Colorless (Yellow) Urine Clarity Turbid (Clear) H Urine pH 6.0 (5.0-9.0) Urine Specific [place] 1.004 (1.001-1.035) Urine Protein 1+ (Negative) H Urine Ketones Negative (Negative) Urine Blood 1+ /uL (Negative) H Urine Nitrite Negative (Negative) Urine Bilirubin Negative (Negative) Urine Urobilinogen Normal mg/dL (Negative) Urine Leukocyte Esterase 3+ /uL (Negative) Urine RBC 16 /hpf (0 - 4) Urine WBC Clumps Present /hpf (None Seen) Urine Microscopic WBC 137 /HPF (0-5) H Urine Squamous Epithelial Cells Mod /hpf (<5) Urine Bacteria Many /hpf (None Seen) H Urine Mucus Few (None Seen) Urine Creatinine 11.55 mg/dL (30.0-125.0) L Urine Sodium 88 mmol/L (40-220) Urine Glucose Normal mg/dL (Normal) Urine Osmolality Pending Microbiology Microbiology Date/Time Source Procedure Growth Status 05/14/25 14:50 Aspirate Gram Stain - Final Complete 05/14/25 14:50 Aspirate Body Fluid Culture - Final Complete 05/11/25 18:30 Urine - [place] Urine Culture - Final Escherichia coli - ESBL Complete 05/11/25 15:15 Nose MRSA Screen - Final Complete 05/11/25 09:11 Blood Blood Culture - Final NO GROWTH AFTER 5 DAYS OF INCUBATION. Complete Labs and/or images reviewed: Labs reviewed by me, Image(s) reviewed by me Assessment/Plan Assessment/Plan Impression: -severe sepsis -probable underlying chronic kidney disease with acute kidney injury -obstructive uropathy -bilateral hydronephrosis with renal calculi -complicated cystitis with ESBL in the urine -left abdominal abscess,? Fistula next to left kidney -normocytic anemia -hyponatremia, probable SIADH Plan: Events: No events overnight. Urine and serum osmolality, pending -trial of diuresis -discussed plan of care with the patient's family -start physical therapy -continue Invanz -PUD prophylaxis -repeat labs in a.m. Total time spent with patient discussing and formulating plan of care: 35 minutes. This medical document was created using an electronic medical record system with [employer] dictation system. Although this document has been carefully reviewed, there may still be some phonetic and typographical errors. These areas are purely typographical due to imperfections of the software programs, and do not reflect any compromise in the patient's medical care. Plan discussed with: Patient, Other (RN) My Orders Orders - SANTIAGO DYSON NP Procedure Category Date Status Time Pt Request For Service PT 05/21/25 Logged 13:10 Date of Service: May 22, 2025 Billing Provider: SANTIAGO DYSON NP Common Visit Codes: [id number] INP/OBS CARE(HIGH) SANTIAGO DYSON NP May 22, 2025 12:13
[2025-05-22] MEDS: FUROSEMIDE 20 MG TAB PO ONE (12:55)
[2025-05-22 20:00] VITALS: PULSE 75; RESP 18; O2SAT 93
[2025-05-22 21:00] VITALS: BP 133/54; PULSE 75; RESP 18; TEMP 98; O2SAT 93
[2025-05-22 23:23] LABS: Hemoglobin 8.1 g/dL (12.2-16.2); Nucleated Red Blood Cells % 0.0 %
[2025-05-22 23:24] LABS: Hematocrit 24.5 % (36.0-46.0); Mean Corpuscular Hemoglobin 29.1 pg (28.0-32.0); Mean Corpuscular Volume 87.8 fL (80.0-100.0)
[2025-05-23] VITALS (7 sets, daily range): BP systolic 124–141; BP diastolic 39–87; PULSE 65–79; RESP 16–20; TEMP 97.6–98.9; O2SAT 92–99
--- NOTE | 2025-05-23 10:27 | DVHPN2 ---
Subjective Patient denies any symptoms. Currently at procedure. Reviewed: H&P Changes from previous H/P or p: No Changes General: Per HPI Eyes: No Pain, No Vision change, No Conjunctivae inflammation, No Eyelid inflammation, No Other, No Redness ENT: No Ear pain, No Ear discharge, No Nose pain, No Nose discharge, No Nose congestion, No Mouth pain, No Mouth swelling, No Throat pain, No Throat swelling, No Other Cardiovascular: No Chest Pain, No Palpitations, No Orthopnea, No Paroxysmal Noc. Dyspnea, No Edema, No Lt Headedness, No Other Respiratory: No Cough, No Dry, No Shortness of breath, No SOB with excertion, No Wheezing, No Hemoptysis, No Pleuritic Pain, No Sputum, No Other Gastrointestinal: No Nausea, No Vomiting; Abdominal Pain; No Diarrhea, No Constipation, No Melena, No Hematochezia, No Other Genitourinary: No Dysuria; Frequency; No Incontinence, No Hematuria, No Retention; Other (less urine) Musculoskeletal: No other, No neck pain, No shoulder pain, No arm pain, No back pain, No hand pain, No leg pain, No foot pain Skin: No Rash, No Lesions, No Jaundice, No Bruising, No Other Objective Vitals Vital Signs Date Time Temp Pulse Resp B/P (MAP) Pulse Ox O2 Delivery O2 Flow Rate FiO2 05/23/25 05:00 98.4 72 18 141/54 (83) 92 98.4 05/22/25 20:00 Room Air* 0 21 Intake/Output Intake and Output 05/23/25 07:00 Intake Total 350 ml Output Total 2510 ml Balance -2160 ml Intake Oral 300 ml IV Total 50 ml Output Urine Total 2500 ml Drainage Total 10 ml # Bowel Movements 1 General Appearance: Alert, Oriented X3, Cooperative, mild distress HEENT: Atraumatic, PERRLA Cardiovascular: Normal S1, Normal S2 Abdomen: Normal bowel sounds Neuro: Cranial nerves 3-12 NL Skin: Dry, Intact Psych/Mental Status: Mental status NL, Mood NL Medications Current Medications Medications Dose Ordered Sig/Augustin Route Start Time Stop Time Status Last Admin Dose Admin Acetaminophen/ Hydrocodone Bitart 1 tab Q4HP PRN PO 05/11/25 13:45 05/13/25 20:48 1 TAB Ondansetron HCl 4 mg Q4HP PRN IV 05/11/25 13:45 Docusate Sodium 100 mg BIDPRN PRN PO 05/11/25 13:45 05/13/25 09:53 100 MG Morphine Sulfate 2 mg Q4HPRN PRN IV 05/11/25 13:45 05/14/25 01:37 2 MG Nitroglycerin 0.4 mg Q5MINP PRN SL 05/11/25 13:45 Morphine Sulfate 2 mg Q30M PRN IV 05/11/25 13:45 Diagnostic Test (Pha) 1 strip Q6HR 05/11/25 18:00 05/23/25 05:30 1 STRIP Insulin Human Regular Q6HR SC 05/11/25 18:00 05/22/25 17:20 2 UNITS Dextrose 50 ml UD PRN IV 05/11/25 14:00 05/15/25 06:01 50 ML Heparin Sodium (Porcine) 5,000 units Q8HR SC 05/13/25 14:00 05/23/25 06:00 5,000 UNITS Ertapenem 0.5 gm/ Sodium Chloride 50 ml @ 100 mls/hr DAILY IV 05/13/25 15:45 05/22/25 10:12 100 MLS/HR Hydralazine HCl 10 mg Q6HP PRN IV 05/16/25 09:45 05/18/25 05:18 10 MG Hydralazine HCl 50 mg Q12HR PO 05/16/25 22:00 05/22/25 22:32 50 MG Furosemide 20 mg DAILY IV 05/23/25 10:00 Laboratory Results Laboratory Tests 05/22/25 06:36 05/22/25 23:12 Urinalysis Test 05/11/25 08:06 05/22/25 12:00 Urine Color Colorless (Yellow) Urine Clarity Turbid (Clear) H Urine pH 6.0 (5.0-9.0) Urine Specific [place] 1.004 (1.001-1.035) Urine Protein 1+ (Negative) H Urine Ketones Negative (Negative) Urine Blood 1+ /uL (Negative) H Urine Nitrite Negative (Negative) Urine Bilirubin Negative (Negative) Urine Urobilinogen Normal mg/dL (Negative) Urine Leukocyte Esterase 3+ /uL (Negative) Urine RBC 16 /hpf (0 - 4) Urine WBC Clumps Present /hpf (None Seen) Urine Microscopic WBC 137 /HPF (0-5) H Urine Squamous Epithelial Cells Mod /hpf (<5) Urine Bacteria Many /hpf (None Seen) H Urine Mucus Few (None Seen) Urine Creatinine 11.55 mg/dL (30.0-125.0) L Urine Sodium 88 mmol/L (40-220) Urine Glucose Normal mg/dL (Normal) Urine Osmolality 169 mOsm/kg Microbiology Microbiology Date/Time Source Procedure Growth Status 05/14/25 14:50 Aspirate Gram Stain - Final Complete 05/14/25 14:50 Aspirate Body Fluid Culture - Final Complete 05/11/25 18:30 Urine - [place] Urine Culture - Final Escherichia coli - ESBL Complete 05/11/25 15:15 Nose MRSA Screen - Final Complete 05/11/25 09:11 Blood Blood Culture - Final NO GROWTH AFTER 5 DAYS OF INCUBATION. Complete Labs and/or images reviewed: Labs reviewed by me, Image(s) reviewed by me Assessment/Plan Assessment/Plan Impression: -severe sepsis -probable underlying chronic kidney disease with acute kidney injury -obstructive uropathy -bilateral hydronephrosis with renal calculi -complicated cystitis with ESBL in the urine -left abdominal abscess,? Fistula next to left kidney -normocytic anemia -hyponatremia, probable SIADH Plan: Events: CT scan of the abdomen and pelvis pending reviewed. Noted persistent bilateral pleural effusions on my assessment. -continue IV diuresis, fluid restriction -radiology consultation for thoracentesis assessment -discussed plan of care with the patient's family Continue physical therapy -continue Invanz -PUD prophylaxis -repeat labs in a.m. Total time spent with patient discussing and formulating plan of care: 35 minutes. This medical document was created using an electronic medical record system with [employer] dictation system. Although this document has been carefully reviewed, there may still be some phonetic and typographical errors. These areas are purely typographical due to imperfections of the software programs, and do not reflect any compromise in the patient's medical care. Plan discussed with: Patient, Other (RN) My Orders Orders - SANTIAGO DYSON SIFTING OPERATOR Procedure Category Date Status Time Free Water Restriction LLUVIA 05/23/25 In Process 09:28 Ct Ab Pel Wo Con-No CT 05/23/25 Taken Oral Or Iv 09:28 Furosemide Injection PHA 05/23/25 In Process (Lasix Injection) 10:00 * Radiologist Consult CONS 05/23/25 Transmitted 10:19 Basic Metabolic Panel LAB 05/24/25 Verified 04:00 Date of Service: May 23, 2025 Billing Provider: SANTIAGO DYSON NP Common Visit Codes: [id number] INP/OBS CARE(HIGH) SANTIAGO DYSON NP May 23, 2025 10:27
--- NOTE | 2025-05-23 11:17 | DVH ---
Indication: reassess abscess Technique: CT axial images of the abdomen and pelvis are obtained without contrast. Coronal and sagit carleen reformats were obtained. Radiation Dose Information: CTDI volume is 524.65 mGy. Dose-length product is 516.8 mGy*cm Comparison: CT CT AB PEL WO CON-NO ORAL OR IV on DOS: 05/19/25 FINDINGS: There is limited interpretation of the abdomen and pelvis without administration of intravenous contr ast. Moderate bilateral pleural effusions. Bibasilar atelectasis/ consolidation. Adrenal glands, spleen and pancreas unremarkable in shape. No CT evidence for cholelithiasis. Hepati c dome heterogeneous lesion with partial calcifications measuring 4.2 x 2.5 cm. Right ureteral stent. No significant right hydronephrosis. 2.3 cm right renal cyst. Left perinephric drainage catheter within complex appearing collection measuring 4.4 x 4.1 cm, essent ially unchanged. Left ureteral stent and mild 2 moderate left hydronephrosis. Distal pigtail terminates at the region. Left renal parenchymal atrophy/cortical thinning. Nonobstructing left renal calculus measuring 4 mm . Stomach partially distended. Small bowel loops normal in caliber. Moderate volume stool in the colon. Normal appendix. Abdominal aortic atherosclerotic disease. Bladder is partially decompressed by Wang catheter. Right ovarian adnexal region heterogeneous lesion containing fat and fluid measuring 3.4 x 3.7 cm. Soft tissue edema /anasarca. Ozdc-mr-purkovuv bilateral sacroiliac degenerative joint disease. Vpoz-ps-[id number] thoracolumbar dege nerative disc disease. IMPRESSION: Essentially unchanged left perinephric complex appearing collection measuring 4.2 x 2.5 cm with pigta il catheter within the collection. The collection appears to be more hyperdense/ complex in appearan ce with differential considerations including hematoma, abscess and other etiologies. Correlate with lab values. Bilateral ureteral stents. Mild to moderate left hydronephrosis. The distal left ureteral stent pigt ail terminates at the left UVJ. Recommend urology consultation for evaluation. Moderate bilateral pleural effusions. Bibasilar atelectasis / consolidation. Soft tissue edema /anasarca. Right ovarian/ adnexal lesion fat and fluid lesion measuring 3.4 x 3.7 cm, likely dermoid. Hepatic dome lesion with calcifications measuring 4.2 x 2.5 cm. This can be further characterized wi multiphasic MRI abdomen with and without contrast. Other findings as described.
[2025-05-23] MEDS: FUROSEMIDE 20 MG/2 ML VIAL IV SCH (11:30)
--- NOTE | 2025-05-23 12:53 | DVH ---
US CHEST ULTRASOUND, HISTORY: fluid check possible thoracentesis COMPARISON(S): None TECHNICAL DATA: Transverse and longitudinal images are obtained of the chest. FINDING: IMPRESSION(S): There is small bilateral pleural effusion.
--- NOTE | 2025-05-23 15:16 | DVH ---
EXAM: XY CHEST XRAY 1 VIEW Indication: POST THORACENTESIS Technique: Single frontal view of the chest was obtained Comparison: XY CHEST XRAY 1 VIEW on DOS: 05/14/25, XY CHEST PORTABLE on DOS: 05/11/25, XY CHEST PORTABLE on DOS: 05/11/25 FINDINGS: Lines and Tubes: Left PICC tip projects over the superior vena cava Lungs: No focal consolidation. Pleura: Trace left pleural effusion No pneumothorax. Cardiomediastinal contours: Unremarkable Bones: No acute osseous abnormality. IMPRESSION: Trace left pleural effusion. No pneumothorax.
--- NOTE | 2025-05-23 15:20 | DVH ---
US THORACENTESIS, HISTORY: PLEURAL EFFUSION PROCEDURE: Informed consent was obtained. The patient was seated on the bed. A limited localization u ltrasound of the left thorax was obtained, and the optimal approach was marked on the skin. The area was prepped with chlorhexidine which was allowed to dry and draped in the usual sterile fashion. Time out was performed. The skin and the soft tissues were infiltrated with 1% lidocaine. A 5.5 Ivorian ce ntesis needle catheter was advanced into left pleural space. Following aspiration of fluid, the lubna ter was advanced and the needle removed. About 500 cc of fluid was drained. Specimen/s was/were sent for appropriate cultures/cytology/cultures and cytology. No immediate complication was identified. FINDINGS: Small left pleural effusion. Aspirated fluid is clear and serous. IMPRESSION: Left thoracentesis with 500 mL removed.
[2025-05-24 05:00] VITALS: BP 137/69; PULSE 71; RESP 18; TEMP 97.7; O2SAT 99
[2025-05-24 05:42] LABS: Chloride 99 mmol/L (98-107); Potassium 4.8 mmol/L (3.5-5.1)
[2025-05-24 05:43] LABS: Anion Gap 8 (5-15); Calcium 8.8 mg/dL (8.7-10.4); Carbon Dioxide 23 mmol/L (20-31)
[2025-05-24 05:47] LABS: Sodium 130 mmol/L (136-145)
[2025-05-24 05:48] LABS: BUN/Creatinine Ratio 16.3 (10.0-20.0); Glucose 100 mg/dL (74-106)
[2025-05-24 05:49] LABS: Blood Urea Nitrogen 39 mg/dL (9-23)
[2025-05-24 09:00] VITALS: BP 146/58; PULSE 76; RESP 16; TEMP 97.9; O2SAT 94
[2025-05-24 12:07] LABS: Glucose, Body Fluid 156.0 mg/dL (.); LD, Body Fluid 65.0 IU/L (.)
[2025-05-24 13:00] VITALS: BP 133/67; PULSE 77; RESP 17; TEMP 96.9; O2SAT 96
--- NOTE | 2025-05-24 14:13 | DVHPN2 ---
Subjective Patient denies any symptoms. Currently at procedure. Reviewed: H&P Changes from previous H/P or p: No Changes General: Per HPI Eyes: No Pain, No Vision change, No Conjunctivae inflammation, No Eyelid inflammation, No Other, No Redness ENT: No Ear pain, No Ear discharge, No Nose pain, No Nose discharge, No Nose congestion, No Mouth pain, No Mouth swelling, No Throat pain, No Throat swelling, No Other Cardiovascular: No Chest Pain, No Palpitations, No Orthopnea, No Paroxysmal Noc. Dyspnea, No Edema, No Lt Headedness, No Other Respiratory: No Cough, No Dry, No Shortness of breath, No SOB with excertion, No Wheezing, No Hemoptysis, No Pleuritic Pain, No Sputum, No Other Gastrointestinal: No Nausea, No Vomiting; Abdominal Pain; No Diarrhea, No Constipation, No Melena, No Hematochezia, No Other Genitourinary: No Dysuria; Frequency; No Incontinence, No Hematuria, No Retention; Other (less urine) Musculoskeletal: No other, No neck pain, No shoulder pain, No arm pain, No back pain, No hand pain, No leg pain, No foot pain Skin: No Rash, No Lesions, No Jaundice, No Bruising, No Other Objective Vitals Vital Signs Date Time Temp Pulse Resp B/P (MAP) Pulse Ox O2 Delivery O2 Flow Rate FiO2 05/24/25 13:00 96.9 77 17 133/67 (89) 96 96.9 05/24/25 08:00 Room Air* 0 21 Intake/Output Intake and Output 05/24/25 07:00 Intake Total 880 ml Output Total 3000 ml Balance -2120 ml Intake Oral 830 ml IV Total 50 ml Output Urine Total 3000 ml # Bowel Movements 3 General Appearance: Alert, Oriented X3, Cooperative, mild distress HEENT: Atraumatic, PERRLA Cardiovascular: Normal S1, Normal S2 Abdomen: Normal bowel sounds Neuro: Cranial nerves 3-12 NL Skin: Dry, Intact Psych/Mental Status: Mental status NL, Mood NL Medications Current Medications Medications Dose Ordered Sig/Augustin Route Start Time Stop Time Status Last Admin Dose Admin Acetaminophen/ Hydrocodone Bitart 1 tab Q4HP PRN PO 05/11/25 13:45 05/13/25 20:48 1 TAB Ondansetron HCl 4 mg Q4HP PRN IV 05/11/25 13:45 Docusate Sodium 100 mg BIDPRN PRN PO 05/11/25 13:45 05/13/25 09:53 100 MG Morphine Sulfate 2 mg Q4HPRN PRN IV 05/11/25 13:45 05/14/25 01:37 2 MG Nitroglycerin 0.4 mg Q5MINP PRN SL 05/11/25 13:45 Morphine Sulfate 2 mg Q30M PRN IV 05/11/25 13:45 Diagnostic Test (Pha) 1 strip Q6HR 05/11/25 18:00 05/24/25 12:20 1 STRIP Insulin Human Regular Q6HR SC 05/11/25 18:00 05/24/25 12:21 3 UNITS Dextrose 50 ml UD PRN IV 05/11/25 14:00 05/15/25 06:01 50 ML Heparin Sodium (Porcine) 5,000 units Q8HR SC 05/13/25 14:00 05/24/25 05:59 5,000 UNITS Ertapenem 0.5 gm/ Sodium Chloride 50 ml @ 100 mls/hr DAILY IV 05/13/25 15:45 05/24/25 09:42 100 MLS/HR Hydralazine HCl 10 mg Q6HP PRN IV 05/16/25 09:45 05/18/25 05:18 10 MG Hydralazine HCl 50 mg Q12HR PO 05/16/25 22:00 05/24/25 09:43 50 MG Furosemide 20 mg DAILY IV 05/23/25 10:00 05/24/25 09:42 20 MG Laboratory Results Laboratory Tests 05/22/25 23:12 05/24/25 04:56 Chemistry Test 05/24/25 04:56 Calcium Level 8.8 mg/dL (8.7-10.4) Urinalysis Test 05/11/25 08:06 05/22/25 12:00 Urine Color Colorless (Yellow) Urine Clarity Turbid (Clear) H Urine pH 6.0 (5.0-9.0) Urine Specific [place] 1.004 (1.001-1.035) Urine Protein 1+ (Negative) H Urine Ketones Negative (Negative) Urine Blood 1+ /uL (Negative) H Urine Nitrite Negative (Negative) Urine Bilirubin Negative (Negative) Urine Urobilinogen Normal mg/dL (Negative) Urine Leukocyte Esterase 3+ /uL (Negative) Urine RBC 16 /hpf (0 - 4) Urine WBC Clumps Present /hpf (None Seen) Urine Microscopic WBC 137 /HPF (0-5) H Urine Squamous Epithelial Cells Mod /hpf (<5) Urine Bacteria Many /hpf (None Seen) H Urine Mucus Few (None Seen) Urine Creatinine 11.55 mg/dL (30.0-125.0) L Urine Sodium 88 mmol/L (40-220) Urine Glucose Normal mg/dL (Normal) Urine Osmolality 169 mOsm/kg Microbiology Microbiology Date/Time Source Procedure Growth Status 05/23/25 14:15 Pleural Fluid Gram Stain Pending Resulted 05/23/25 14:15 Pleural Fluid Aerobic Culture - Preliminary Resulted 05/11/25 18:30 Urine - [place] Urine Culture - Final Escherichia coli - ESBL Complete 05/11/25 15:15 Nose MRSA Screen - Final Complete 05/11/25 09:11 Blood Blood Culture - Final NO GROWTH AFTER 5 DAYS OF INCUBATION. Complete Labs and/or images reviewed: Labs reviewed by me, Image(s) reviewed by me Assessment/Plan Assessment/Plan Impression: -severe sepsis -probable underlying chronic kidney disease with acute kidney injury -obstructive uropathy -bilateral hydronephrosis with renal calculi -complicated cystitis with ESBL in the urine -left abdominal abscess,? Fistula next to left kidney -normocytic anemia -hyponatremia, probable SIADH Plan: Events: Hyponatremia improving. Patient ambulating. Thoracentesis with 500 mL removed. Discontinue Wang catheter. Radiology consultation remove drain. Reassess for discharge tomorrow -radiology consultation for thoracentesis assessment -discussed plan of care with the patient's family Continue physical therapy -continue Invanz -PUD prophylaxis -repeat labs in a.m. Total time spent with patient discussing and formulating plan of care: 35 minutes. This medical document was created using an electronic medical record system with [employer] dictation system. Although this document has been carefully reviewed, there may still be some phonetic and typographical errors. These areas are purely typographical due to imperfections of the software programs, and do not reflect any compromise in the patient's medical care. Plan discussed with: Patient, Other (RN) My Orders Orders - SANTIAGO DYSON [employer] Procedure Category Date Status Time Gram Stain ABHISHEK 05/23/25 In Process 14:31 Routine Bacterial ABHISHEK 05/23/25 In Process Culture 14:31 [place] [facility] 05/23/25 Transmitted 14:31 D/C Wang LLUVIA 05/24/25 Verified 14:10 Date of Service: May 24, 2025 Billing Provider: SANTIAGO DYSON NP Common Visit Codes: [id number] INP/OBS CARE(HIGH) SANTIAGO DYSON NP May 24, 2025 14:13
[2025-05-24 16:26] LABS: Urine Protein, UAD 1+ (Negative)
[2025-05-24 17:00] VITALS: BP 150/61; PULSE 78; RESP 17; TEMP 96.8; O2SAT 97
[2025-05-24 21:00] VITALS: BP 150/73; PULSE 82; RESP 17; TEMP 98.5; O2SAT 95
[2025-05-25] VITALS (7 sets, daily range): BP systolic 108–155; BP diastolic 65–83; PULSE 72–83; RESP 16–17; TEMP 97.5–98.1; O2SAT 94–96
[2025-05-25 11:04] LABS: Mean Corpuscular Hemoglobin 29.2 pg (28.0-32.0)
[2025-05-25 11:06] LABS: Hematocrit 25.7 % (36.0-46.0); Hemoglobin 8.3 g/dL (12.2-16.2); Mean Corpuscular Volume 90.1 fL (80.0-100.0)
[2025-05-25 11:22] LABS: Alanine Aminotransferase 10 U/L (7-40); Albumin 3.8 g/dL (3.2-4.8); Alkaline Phosphatase 115 U/L (46-116); Anion Gap 9 (5-15); BUN/Creatinine Ratio 15.0 (10.0-20.0); Calcium 9.4 mg/dL (8.7-10.4); Carbon Dioxide 23 mmol/L (20-31); Chloride 101 mmol/L (98-107); Potassium 4.4 mmol/L (3.5-5.1); Total Protein 6.4 g/dL (5.7-8.2)
[2025-05-25 11:24] LABS: Bilirubin, Total 0.2 mg/dL (0.2-1.0); Blood Urea Nitrogen 34 mg/dL (9-23); Glucose 198 mg/dL (74-106); Sodium 133 mmol/L (136-145)
--- NOTE | 2025-05-25 12:12 | DVH ---
CT HEAD WITHOUT CONTRAST INDICATION: aloc, mechanical fall EXAM DATE: 05/25/2025 11:33 AM COMPARISON: None RADIATION DOSE: CTDIvol: 53.52 mGy, DLP: 966.88 mGy*cm PROCEDURE: CT scans of the head were obtained from the vertex to the skull base. Sagittal and coronal reconstructions were provided. All CT scans at this medical facility are performed using dose modulation techniques as appropriate t o a performed exam including the following: Automated exposure control was utilized; adjustment of th e MA and/or KV according to patient size; and use of iterative reconstruction technique. FINDINGS: There is sulcal and ventricular prominence. The brainshows normal morphology and mcnair-whi te matter differentiation, without intracranial hemorrhage, extra-axial fluid collection, mass effect or acute large vessel infarct. The ventricles are normal in size. The basal cisterns are patent. The skull and visible facial bones are intact. The paranasal sinuses, mastoid air cells and middle ear c avities are well-aerated. The soft tissues of the scalp are unremarkable. IMPRESSION: No acute intracranial abnormality.
[2025-05-25 12:37] LABS: Total Cells Counted 100.0 (100)
[2025-05-25] MEDS ORDERED: CIPR500T4 PO (14:59)
--- NOTE | 2025-05-25 15:08 | DVHDS2 ---
Discharge Summary Date of Admission May 11, 2025 at 13:38 Date of Discharge: May 26, 2025 Labs/Diagnostic Data: Laboratory Results Test 05/25/25 12:20 05/25/25 10:36 05/24/25 16:11 05/23/25 14:15 POC Glucose 132 mg/dl (70-106) White Blood Count 6.3 10^3/uL (4.4-10.8) Red Blood Count 2.85 10^6/uL (4.0-5.20) Hemoglobin 8.3 g/dL (12.2-16.2) Hematocrit 25.7 % (36.0-46.0) Mean Corpuscular Volume 90.1 fL (80.0-100.0) Mean Corpuscular Hemoglobin 29.2 pg (28.0-32.0) Mean Corpuscular Hemoglobin Concent 32.4 g/dL (32.0-36.0) Red Cell Distribution Width 15.7 % (11.8-14.3) Platelet Count 307 10^3/uL (140-450) Mean Platelet Volume 7.1 fL (6.9-10.8) Neutrophils (%) (Auto) % (37.0-80.0) Lymphocytes (%) (Auto) % (10.0-50.0) Monocytes (%) (Auto) % (0.0-12.0) Basophils (%) (Auto) % (0.0-2.0) Neutrophils # (Auto) 10 ^3/uL (1.6-8.6) Lymphocytes # (Auto) 10 ^3/uL (0.4-5.4) Monocytes # (Auto) 10 ^3/uL (0-1.3) Differential Total Cells Counted 100.0 (100) Neutrophils % (Manual) 70 (37.0-80.0) Band Neutrophils % (Manual) 0 Lymphocytes % (Manual) 29 (10.0-50.0) Monocytes % (Manual) 1 (0-12) Eosinophils % (Manual) 0 (0-7) Basophils % (Manual) 0 (0.0-2.0) Metamyelocytes % (manual) 0 Myelocytes % (Manual) 0 Promyelocytes % (Manual) 0 Blast Cells % (Manual) 0 Reactive Lymphocytes 0 Platelet Estimate Adequate Sodium Level 133 mmol/L (136-145) Potassium Level 4.4 mmol/L (3.5-5.1) Chloride Level 101 mmol/L (98-107) Carbon Dioxide Level 23 mmol/L (20-31) Anion Gap 9 (5-15) Blood Urea Nitrogen 34 mg/dL (9-23) Creatinine 2.27 mg/dL (0.550-1.02) Glomerular Filtration Rate Calc 21 mL/min (>90) BUN/Creatinine Ratio 15.0 (10.0-20.0) Serum Glucose 198 mg/dL (74-106) Calcium Level 9.4 mg/dL (8.7-10.4) Total Bilirubin 0.2 mg/dL (0.2-1.0) Aspartate Amino Transferase (AST) 23 U/L (13-40) Alanine Aminotransferase (ALT) 10 U/L (7-40) Alkaline Phosphatase 115 U/L (46-116) Total Protein 6.4 g/dL (5.7-8.2) Albumin 3.8 g/dL (3.2-4.8) Urine Color Colorless (Yellow) Urine Clarity Clear (Clear) Urine pH 6.5 (5.0-9.0) Urine Specific [place] 1.004 (1.001-1.035) Urine Protein 1+ (Negative) Urine Ketones Negative (Negative) Urine Blood 1+ /uL (Negative) Urine Nitrite Negative (Negative) Urine Bilirubin Negative (Negative) Urine Urobilinogen Normal mg/dL (Negative) Urine Leukocyte Esterase 3+ /uL (Negative) Urine RBC 7 /hpf (0 - 4) Urine Microscopic WBC 37 /HPF (0-5) Urine Squamous Epithelial Cells Few /hpf (<5) Urine Bacteria Few /hpf (None Seen) Urine Glucose Normal mg/dL (Normal) Body Fluid Source Pleural fluid Body Fluid pH 8.0 Body Fluid WBC (Manual) 74 CUMM (0-200) Body Fluid RBC (Manual) 214 CUMM (0-2000) Body Fluid Mononuclear Cells 96 % Body Fluid Polymorphonuclear Cells 4 % (0-25) Body Fluid Glucose 156 mg/dL (.) Body Fluid Total Protein 2.1 g/dL (.) Body Fluid Lactate Dehydrogenase 65 IU/L (.) Test 05/22/25 23:12 05/22/25 12:00 05/22/25 06:36 05/18/25 05:50 Eosinophils (%) (Auto) 3.9 % (0.0-7.0) Eosinophils # (Auto) 0.3 10 ^3/uL (0-0.8) Basophils # (Auto) 0.1 10 ^3/uL (0-0.2) Nucleated Red Blood Cells 0.0 % Urine Osmolality 169 mOsm/kg Serum Osmolality 276 mOsm/kg (278-298) Random Vancomycin Level 19.6 ug/mL (5-10) Test 05/15/25 04:30 05/13/25 11:20 05/12/25 04:45 05/11/25 18:35 Hemoglobin A1c 6.2 % A1C (<5.7) Prothrombin Time 10.9 sec (9.3-11.8) Prothrombin Time INR 1.03 (0.9-1.15) Activated Partial Thromboplast Time 29.4 SEC (24.5-34.5) Phosphorus Level 5.3 mg/dL (2.4-5.1) Lactic Acid Level 1.2 mmol/L (0.4-2.0) Test 05/11/25 08:06 Urine WBC Clumps Present /hpf (None Seen) Urine Mucus Few (None Seen) Urine Creatinine 11.55 mg/dL (30.0-125.0) Urine Sodium 88 mmol/L (40-220) Other Laboratory Tests 05/25/25 10:36 Brief Hx & Hospital Course: History of Present Illness Meri Cardoso is an 85-year-old female with past medical history of hypertension, and diabetes, who came to the hospital for abdominal pain. The patient states the pain began last night about 2200 in her RUQ. She denies any pain, nausea, or vomiting, prior to last night. States she has noticed needing to go to the bathroom more frequently and having less urine, denies dysuria. Patient denies any knowledge of having kidney stones or having them in the past. Patient is from [place], she is here visiting family and scheduled to go home on Wednesday05/14/2025. Course of hospitalization: Patient had urology consultation for acute kidney injury with obstructive uropathy. Patient underwent bilateral ureteral stent placement by Dr. Torres. Patient's renal function improved with IV hydration. Nephrology consultation was also placed with recommendations implemented with the patient care. Patient was also found to have a left perinephric abscess for which a drain was placed. Patient was white blood cell count improved after the patient was placed on Invanz for noted ESBL in the urine. Patient's overall clinical status improved. Patient did have hyponatremia which improved with IV diuresis as well as fluid restriction. Blood sugars has been stable with regular insulin sliding scale. Patient was given full 14 day course which flow be completed tomorrow of IV Invanz. Repeat UA did reveal patient having some bacteria as well as leukocytes in the urine. Patient will be continued on ciprofloxacin 250 mg p.o. twice a day for additional 10 days after being discharged from the hospital. Patient will follow up with the discharge Clinic in one week. Social service consultation was placed given the patient has not have any medical insurance at this time, for which she was placed on emergency medi-anastacia. Patient's family notified of discharge plan. All parties are in agreement. All questions answered. Physical examination General: Alert and Oriented x3. No acute distress. Well-nourished. Eyes: EOMI. Anicteric. HENT: Moist mucous membranes. Lungs: Clear to auscultation bilaterally. No accessory muscle use. Cardiovascular: Regular rate and rhythm. No murmur. No JVD. Abdomen: Soft, non-tender and non-distended. No palpable masses. Extremities: No edema. Non-tender. Skin: No rashes or lesions. Warm. Neurologic: No focal neurological deficits. CN II-XII grossly intact, but not individually tested. Psychiatric: Cooperative. Appropriate mood and affect. Total time spent with patient discussing and formulating plan of care: 35 minutes. This medical document was created using an electronic medical record system with [employer] dictation system. Although this document has been carefully reviewed, there may still be some phonetic and typographical errors. These areas are purely typographical due to imperfections of the software programs, and do not reflect any compromise in the patient's medical care. Condition at Discharge: Critical Final Diagnosis/Problems List Sepsis secondary to complicated cystitis and intra-abdomina abscess Secondary diagnosis: -severe sepsis -probable underlying chronic kidney disease with acute kidney injury -obstructive uropathy -bilateral hydronephrosis with renal calculi -complicated cystitis with ESBL in the urine -left abdominal abscess,? Fistula next to left kidney -normocytic anemia -hyponatremia, probable SIADH Discharge Disposition: Home Discharge Instruct/Medications Diet: Consistent carbohydrate Activity: No Restrictions, As Tolerated Follow Up/Referral: Follow up with discharge Clinic in one week Medications: Ciprofloxacin 250 mg p.o. b.i.d. times 10 days Scheduled Ciprofloxacin Hcl (Ciprofloxacin Hcl), 0.5 TAB PO BID 36 Discharge Statement: "Patient was advised to return to the ER or call 911 if any headaches, dizziness, shortness of breath, chest pain, abdominal pain, bleeding, fevers, or worsening of medical condition. Patient was counseled about treatment plan, medications, possible side effects, patientverbalized understanding. All questions were answered to the best of my ability. This discharge took greater then 30 minutes in planning, reviewing documentation, counseling the patient, and discussing with other team members." ASSESSMENT ASSESSMENT Assessment Sepsis secondary to complicated cystitis and intra-abdomina abscess Date of Service: May 25, 2025 Billing Provider: SANTIAGO DYSON NP Common Visit Codes: [id number] INP/OBS CARE(HIGH) SANTIAGO DYSON NP May 25, 2025 15:08
[2025-05-26] VITALS (7 sets, daily range): BP systolic 114–147; BP diastolic 52–78; PULSE 73–86; RESP 16–20; TEMP 97.5–98.5; O2SAT 90–98
--- NOTE | 2025-05-26 13:56 | DVHPN2 ---
Subjective The patient is seen and examined at bedside. No complaint today. The patient is supposed to be discharged yesterday however unable to get in touch with an next of kin. Today her family show up and ready to take her home. Reviewed: H&P Changes from previous H/P or p: No Changes General: Per HPI Eyes: No Pain, No Vision change, No Conjunctivae inflammation, No Eyelid inflammation, No Other, No Redness ENT: No Ear pain, No Ear discharge, No Nose pain, No Nose discharge, No Nose congestion, No Mouth pain, No Mouth swelling, No Throat pain, No Throat swelling, No Other Cardiovascular: No Chest Pain, No Palpitations, No Orthopnea, No Paroxysmal Noc. Dyspnea, No Edema, No Lt Headedness, No Other Respiratory: No Cough, No Dry, No Shortness of breath, No SOB with excertion, No Wheezing, No Hemoptysis, No Pleuritic Pain, No Sputum, No Other Gastrointestinal: No Nausea, No Vomiting; Abdominal Pain; No Diarrhea, No Constipation, No Melena, No Hematochezia, No Other Genitourinary: No Dysuria; Frequency; No Incontinence, No Hematuria, No Retention; Other (less urine) Musculoskeletal: No other, No neck pain, No shoulder pain, No arm pain, No back pain, No hand pain, No leg pain, No foot pain Skin: No Rash, No Lesions, No Jaundice, No Bruising, No Other Objective Vitals Vital Signs Date Time Temp Pulse Resp B/P (MAP) Pulse Ox O2 Delivery O2 Flow Rate FiO2 05/26/25 11:27 147/70 05/26/25 08:30 77 18 Room Air* 0 21 05/26/25 07:59 97.7 95 97.7 Intake/Output Intake and Output 05/26/25 07:00 Intake Total 500 ml Balance 500 ml Intake Oral 450 ml IV Total 50 ml # Voids 5 # Bowel Movements 1 General Appearance: Alert, Oriented X3, Cooperative, mild distress HEENT: Atraumatic, PERRLA Cardiovascular: Normal S1, Normal S2 Abdomen: Normal bowel sounds Neuro: Cranial nerves 3-12 NL Skin: Dry, Intact Psych/Mental Status: Mental status NL, Mood NL Medications Current Medications Medications Dose Ordered Sig/Augustin Route Start Time Stop Time Status Last Admin Dose Admin Acetaminophen/ Hydrocodone Bitart 1 tab Q4HP PRN PO 05/11/25 13:45 7/6/25 20:48 1 TAB Ondansetron HCl 4 mg Q4HP PRN IV 05/11/25 13:45 Docusate Sodium 100 mg BIDPRN PRN PO 05/11/25 13:45 05/13/25 09:53 100 MG Nitroglycerin 0.4 mg Q5MINP PRN SL 05/11/25 13:45 Diagnostic Test (Pha) 1 strip Q6HR 05/11/25 18:00 05/26/25 12:00 1 STRIP Insulin Human Regular Q6HR SC 05/11/25 18:00 05/26/25 11:53 2 UNITS Dextrose 50 ml UD PRN IV 05/11/25 14:00 05/15/25 06:01 50 ML Ertapenem 0.5 gm/ Sodium Chloride 50 ml @ 100 mls/hr DAILY IV 05/13/25 15:45 05/26/25 11:41 100 MLS/HR Hydralazine HCl 10 mg Q6HP PRN IV 05/16/25 09:45 05/18/25 05:18 10 MG Hydralazine HCl 50 mg Q12HR PO 05/16/25 22:00 05/26/25 11:26 50 MG Furosemide 20 mg DAILY IV 05/23/25 10:00 05/26/25 11:27 20 MG Laboratory Results Laboratory Tests 05/25/25 10:36 Urinalysis Test 05/11/25 08:06 05/22/25 12:00 05/24/25 16:11 Urine WBC Clumps Present /hpf (None Seen) Urine Mucus Few (None Seen) Urine Creatinine 11.55 mg/dL (30.0-125.0) L Urine Sodium 88 mmol/L (40-220) Urine Osmolality 169 mOsm/kg Urine Color Colorless (Yellow) Urine Clarity Clear (Clear) Urine pH 6.5 (5.0-9.0) Urine Specific [place] 1.004 (1.001-1.035) Urine Protein 1+ (Negative) H Urine Ketones Negative (Negative) Urine Blood 1+ /uL (Negative) H Urine Nitrite Negative (Negative) Urine Bilirubin Negative (Negative) Urine Urobilinogen Normal mg/dL (Negative) Urine Leukocyte Esterase 3+ /uL (Negative) Urine RBC 7 /hpf (0 - 4) Urine Microscopic WBC 37 /HPF (0-5) H Urine Squamous Epithelial Cells Few /hpf (<5) Urine Bacteria Few /hpf (None Seen) H Urine Glucose Normal mg/dL (Normal) Microbiology Microbiology Date/Time Source Procedure Growth Status 05/23/25 14:15 Pleural Fluid Gram Stain - Final Resulted 05/23/25 14:15 Pleural Fluid Aerobic Culture - Preliminary Resulted 05/11/25 18:30 Urine - [place] Urine Culture - Final Escherichia coli - ESBL Complete 05/11/25 15:15 Nose MRSA Screen - Final Complete 05/11/25 09:11 Blood Blood Culture - Final NO GROWTH AFTER 5 DAYS OF INCUBATION. Complete Labs and/or images reviewed: Labs reviewed by me Assessment/Plan Assessment/Plan -severe sepsis -probable underlying chronic kidney disease with acute kidney injury -obstructive uropathy -bilateral hydronephrosis with renal calculi -complicated cystitis with ESBL in the urine -left abdominal abscess,? Fistula next to left kidney -normocytic anemia -hyponatremia, probable SIADH Plan: Continuing current management. Discharge home today. This medical document was created using an electronic medical record system with [employer] computerized dictation system. Although this document has been carefully reviewed, there may still be some phonetic and typographical errors. These areas are purely typographical due to imperfections of the software programs, and do not reflect any compromise in the patient's medical care. Plan discussed with: Patient, Other (RN) Date of Service: May 26, 2025 Billing Provider: GISELA SANCHEZ MD Common Visit Codes: [id number] INP/OBS CARE(HIGH) GISELA SANCHEZ MD May 26, 2025 13:56
== END 2025-05-26 17:00 | disposition home or self-care (01) | DRG 720 ==
LOC: ER 07:48 → OVERFLOW 13:38 → DOU IN ICU 13:53 → EAST 05-16 23:14
PROVIDERS: ADMIT Nurse Practitioner Acute Care; ATTEND Nurse Practitioner Acute Care
PROC: 02H633Z Insertion of Infusion Device into Right Atrium, Percutaneous Approach (ICD-10-PCS; 2025-05-11)
PROC: B548ZZA Ultrasonography of Superior Vena Cava, Guidance (ICD-10-PCS; 2025-05-11)
PROC: 0T788DZ Dilation of Bilateral Ureters with Intraluminal Device, Via Natural or Artificial Opening Endoscopic (ICD-10-PCS; principal; 2025-05-11 20:48)
PROC: 0T943ZZ Drainage of Left Kidney Pelvis, Percutaneous Approach (ICD-10-PCS; 2025-05-14)
PROC: 0W9B3ZZ Drainage of Left Pleural Cavity, Percutaneous Approach (ICD-10-PCS; 2025-05-23)
DX: A41.51 Sepsis due to Escherichia coli [E. coli] (principal); K65.1 Peritoneal abscess; N15.1 Renal and perinephric abscess; E22.2 Syndrome of inappropriate secretion of antidiuretic hormone; E11.22 Type 2 diabetes mellitus with diabetic chronic kidney disease; D64.9 Anemia, unspecified; I12.9 Hypertensive chronic kidney disease with stage 1 through stage 4 chronic kidney disease, or unspecified chronic kidney disease; I25.10 Atherosclerotic heart disease of native coronary artery without angina pectoris; K76.9 Liver disease, unspecified; N18.9 Chronic kidney disease, unspecified; R65.20 Severe sepsis without septic shock; N13.6 Pyonephrosis; Z16.12 Extended spectrum beta lactamase (ESBL) resistance; Z59.71 Insufficient health insurance coverage
CPT/HCPCS: 10005; 32555; 36415; 36556; 70450; 71045; 74018; 74150; 74176; 76000; 76604; 76775; 76942; 77012; 80048; 80053; 80202; 81001; 82570; 82962; 83036; 83605; 83930; 83935; 83986; 84100; 84300; 85007; 85014; 85018; 85025; 85027; 85610; 85730; 86850; 86900; 86901; 87040; 87070; 87081; 87086; 87088; 87186; 87205; 89051; 93005; 93306; 94640; 96365; 96375; 97110; 97116; 97163; 99291; C1729; G0378; J1335; J1815; J2003; J2250; J2405; J2704; J3490

== ENCOUNTER 2025-05-28 12:00 | Inpatient (IN) | payer MEDICAID ==
[~2025-05-28] VITALS: Ht 149.9 cm; Wt 69.0 kg
[~2025-05-28 12:00] MED LIST: CIPR500T4 PO
--- NOTE | 2025-05-28 12:39 | ED.PDOC ---
HPI (NEURO) HPI Comments 85 y.o female with PMHx of HTN and DM, presents to the ED for a chief complaint of dizziness associated with generalized weakness that started last night. Per patient's daughter, patient was admitted at this hospital for 14 days due to kidney injury and was discharged on Cipro 2 days ago. Per medical record reports on 05/26/25, the following diagnosis will be listed below: Sepsis secondary to complicated cystitis and intra-abdomina abscess Secondary diagnosis: -severe sepsis -probable underlying chronic kidney disease with acute kidney injury -obstructive uropathy -bilateral hydronephrosis with renal calculi -complicated cystitis with ESBL in the urine -left abdominal abscess,? Fistula next to left kidney -normocytic anemia -hyponatremia, probable SIADH Patient underwent bilateral ureteral stent placement by Dr. Torres. on 05/11/25. At this time, patient denies any abdominal pain, nausea, vomiting, diarrhea, fever, chills, dysuria, SOB, chest pain, back pain. Chief Complaint: General Weakness Time Seen by MD: 12:27 Reviewed Notes: Nurses Notes, Medications, Allergies Information Source: Relative Mode of Arrival: Wheelchair Severity: Moderate Dizziness/Weakness Severity: Unable to do activities Timing: Hours Duration: Since onset Weakness Location: Generalized Onset: At rest Circumstances: Spontaneous History of: DM, Hypertension Modifying factors: Nothing Associated Signs and Symptoms: Other Past Medical History PAST MEDICAL HISTORY: DM, HTN Surgical History (Other): hemorrhoidectomy REPROGRAPHICS ASSOCIATE History: No Pertinent REPROGRAPHICS ASSOCIATE History Family History Family History: Unknown Social History Smoker: Non-Smoker Alcohol: Denies ETOH Use Drugs: Denies Drug Use Lives In: Home Constitutional: reports: weakness; denies: chills, diaphoresis, fatigue, fever, malaise, sweats, others EENTM: denies: blurred vision, double vision, ear bleeding, ear discharge, ear drainage, ear pain, ear ringing, eye pain, eye redness, hearing loss, mouth pain, mouth swelling, nasal discharge, nose bleeding, nose congestion, nose pain, photophobia, tearing, throat pain, throat swelling, voice changes, others Respiratory: denies: cough, hemoptysis, orthopnea, SOB at rest, shortness of breath, SOB with excertion, stridor, wheezing, others Cardiovascular: denies: chest pain, dizzy spells, diaphoresis, Dyspnea on exertion, edema, irregular heart beat, left arm pain, lightheadedness, pal pitations, PND, syncope, others Gastrointestinal: denies: abdomen distended, abdominal pain, blood streaked bowels, constipated, diarrhea, dysphagia, difficulty swallowing, hematemesis, melena, nausea, poor appetite, poor fluid intake, rectal bleeding, rectal pain, vomiting, others Genitourinary: denies: abnormal vagina bleeding, burning, dyspareunia, dysuria, flank pain, frequency, hematuria, incontinence, pain, , vagina discharge, urgency, others Neurological: reports: dizziness; denies: fainting, headache, left sided numbness, left sided weakness, numbness, paresthesia, pre-existing deficit, right sided numbness, right sided weakness, seizure, speech problems, tingling, tremors, weakness, others Musculoskeletal: denies: back pain, gout, joint pain, joint swelling, muscle pain, muscle stiffness, neck pain, others Integumetry: denies: bruises, change in color, change in hair/nails, dryness, laceration, lesions, lumps, rash, wounds, others Allergic/Immunocompromised: denies: Difficulty Healing, Frequent Infections, Hives, Itching, others Hematologic/Lymphatic: denies: anemia, blood clots, easy bleeding, easy bruising, swollen glands, others Endocrine: denies: excessive hunger, excessive sweating, excessive thirst, excessive urination, flushing, intolerance to cold, intolerance to heat, unexplained weight gain, unexplained weight loss, others Psychiatric: denies: anxiety, bipolar disorder, depression, hopeless, panic disorder, schizophrenia, sleepless, suicidal, others All Other Systems: Reviewed and Negative Physical Exam General Appearance: Moderate Distress HEENT: Pale Conjuntivae (L), Pale Conjuntivae (R), Pharynx Normal, TMs Normal Neck: Full Range of Motion, Non-Tender, Normal, Normal Inspection Respiratory: Chest Non-Tender, Lungs Clear, No Accessory Muscle Use, No Respiratory Distress, Normal Breath Sounds Cardiovascular: No Edema, No JVD, No Murmur, No Gallop, Normal Peripheral Pulses, Regular Rate/Rhythm Breast Exam: Deferred Gastrointestinal: No Organomegaly, Non Tender, No Pulsatile Mass, Normal Bowel Sounds, Soft Genitalia: Deferred Pelvic: Deferred Rectal: Deferred Extremities: No calf tenderness, Normal capillary refill, No pedal edema Musculoskeletal : Apperance: Normal Neurologic: second steward II-XII nml as Tested, Motor Weakness, Normal Affect, Normal Mood, No Sensory Deficits Cerebellar Function: Normal Reflexes: Normal Skin: Dry, Pallor, Warm Lymphatic: No Adenopathy Was a procedure done? Was a procedure done?: No Differential Diagnosis (SZ) Seizure: N/A General Weakness: Dehydration, Electrolyte imbalance, Meniere's disease, VBI, Vertigo: central, Vertigo: peripheral, Vestibular neuronitis X-Ray, Labs, Meds, VS Vital Signs Date Time Temp Pulse Resp B/P (MAP) Pulse Ox O2 Delivery O2 Flow Rate FiO2 05/28/25 12:44 45 05/28/25 12:28 98.6 45 18 147/57 (87) 99 98.6 Lab Test 05/28/25 13:05 Range/Units White Blood Count 5.7 4.4-10.8 10^3/uL Red Blood Count 3.21 L 4.0-5.20 10^6/uL Hemoglobin 9.4 L 12.2-16.2 g/dL Hematocrit 30.8 #L 36.0-46.0 % Mean Corpuscular Volume 96.0 # 80.0-100.0 fL Mean Corpuscular Hemoglobin 29.1 28.0-32.0 pg Mean Corpuscular Hemoglobin Concent 30.4 L 32.0-36.0 g/dL Red Cell Distribution Width 15.5 H 11.8-14.3 % Platelet Count 344 140-450 10^3/uL Mean Platelet Volume 6.8 L 6.9-10.8 fL Neutrophils (%) (Auto) 76.3 37.0-80.0 % Lymphocytes (%) (Auto) 14.6 10.0-50.0 % Monocytes (%) (Auto) 7.8 0.0-12.0 % Eosinophils (%) (Auto) 0.7 0.0-7.0 % Basophils (%) (Auto) 0.6 0.0-2.0 % Neutrophils # (Auto) 4.3 1.6-8.6 10 ^3/uL Lymphocytes # (Auto) 0.8 0.4-5.4 10 ^3/uL Monocytes # (Auto) 0.4 0-1.3 10 ^3/uL Eosinophils # (Auto) 0 0-0.8 10 ^3/uL Basophils # (Auto) 0 0-0.2 10 ^3/uL Nucleated Red Blood Cells 0.1 % Sodium Level 131 L 136-145 mmol/L Potassium Level 4.7 3.5-5.1 mmol/L Chloride Level 100 98-107 mmol/L Carbon Dioxide Level 20 20-31 mmol/L Anion Gap 11 5-15 Blood Urea Nitrogen 44 H 9-23 mg/dL Creatinine 2.74 H 0.550-1.02 mg/dL Glomerular Filtration Rate Calc 17 >90 mL/min BUN/Creatinine Ratio 16.1 10.0-20.0 Serum Glucose 50 L 74-106 mg/dL Lactic Acid Level 0.6 0.4-2.0 mmol/L Calcium Level 8.1 L 8.7-10.4 mg/dL The CBC shows a hemoglobin of 9.4 hematocrit of 30.8 The rest of the CBC is within normal limits The platelets are 344 The chemistry panel shows a BUN of 44 and a creatinine of 2.74 At this time, the patient continues to complain of dizziness and weakness The patient is being admitted to the hospitalist with autonomic dysfunction The CAT scan of the head shows: IMPRESSION: Global brain atrophy and chronic ischemic changes without evidence of acute intracranial process. The patient is being admitted Images Reviewed?: Images reviewed and evaluated by me Time of 1ST Reevaluation: 12:33 Reevaluation 1ST: Unchanged Patient Education/Counseling: Diagnosis, Treatment, Prognosis Family Education/Counseling: Diagnosis, Treatment, Prognosis Departure 1 Departure Time of Disposition: 14:12 Impression: Primary Impression: Generalized weakness Additional Impression: UTI (urinary tract infection) Qualified Codes: N30.00 - Acute cystitis without hematuria Disposition: 09 ADMITTED INPATIENT Admit to: Tele Condition: Fair Critical Care Note Critical Care Time?: Yes (35 min-critical care time only) Stability Stability form required: Yes Unstable for transfer: Telemetry monitoring (Telemetry monitoring required), ED Physician Assesment (Clinical assesment) I personally scribed for SHERRY DE LA ROSA MD ([email or web address]) on 05/28/25 at 12:39. Electronically submitted by Sheila Jarquin ([facility]). SHERRY DE LA ROSA MD May 28, 2025 12:39
--- NOTE | 2025-05-28 12:45 | ECG ---
[facility] Test Date: 2025-05-28 Test Time: 12:44:08 Pat Name: NIA JEFFERSON Department: er Room: 0203 Gender: F Blank Driller: gp : [phone] Requested By: SHERRY DE LA ROSA Order Number: [id number] Reading MD: Jair Austin Measurements Intervals Errol Rate: 45 P: 9 AL: 190 QRS: 2 QRSD: 109 T: 27 QT: 558 QTc: 483 Interpretive Statements Sinus bradycardia Low voltage, precordial leads Electronically Signed On 05-30-2025 16:58:44 PDT by Jair Austin Please click the below link to view image of tracing.
--- NOTE | 2025-05-28 13:24 | DVH ---
EXAM: CT HEAD WITHOUT CONTRAST HISTORY: weakness COMPARISON: CT HEAD WITHOUT CONTRAST on DOS: 05/25/25 TECHNIQUE: Noncontrast axial CT images of the head were performed. Sagittal and coronal reformatted i mages were obtained. This CT exam was performed using 1 or more of the following dose reduction techn iques: Automated exposure control, adjustment of the mA and/or kv according to patient size, or the u se of iterative reconstruction techniques. Radiation Dose: CTDI volume is 48.66 mGy. Dose-length product is 778.54 mGy*cm FINDINGS: There is global brain atrophy. There is mild decreased attenuation in the periventricular white matte r. No intracranial hemorrhage, mass, midline shift, hydrocephalus, or evidence of acute large vessel infarct. There is a mucous retention cyst in the left sphenoid sinus. The bilateral mastoid air cells and middle ear spaces are clear. No cranial fracture or scalp edema. IMPRESSION: Global brain atrophy and chronic ischemic changes without evidence of acute intracranial process.
[2025-05-28 13:25] LABS: Hematocrit 30.8 % (36.0-46.0); Hemoglobin 9.4 g/dL (12.2-16.2); Mean Corpuscular Hemoglobin 29.1 pg (28.0-32.0); Mean Corpuscular Volume 96.0 fL (80.0-100.0); Nucleated Red Blood Cells % 0.1 %
[2025-05-28 13:33] LABS: Chloride 100 mmol/L (98-107); Potassium 4.7 mmol/L (3.5-5.1)
[2025-05-28 13:34] LABS: Anion Gap 11 (5-15)
[2025-05-28 13:39] LABS: BUN/Creatinine Ratio 16.1 (10.0-20.0); Blood Urea Nitrogen 44 mg/dL (9-23); Calcium 8.1 mg/dL (8.7-10.4); Carbon Dioxide 20 mmol/L (20-31); Glucose 50 mg/dL (74-106); Sodium 131 mmol/L (136-145)
[2025-05-28] MEDS: SODIUM CHLORIDE 0.9% 500 ML IV ONE (13:42)
[2025-05-28] MEDS ORDERED: DOCUSATE SOD 100 MG CAP PO PRN (16:00)
[2025-05-28] MEDS ORDERED: HYDROcodone-ACET 5/325MG TAB PO PRN (16:00)
[2025-05-28] MEDS ORDERED: ACETAMINOPHEN 325 MG TAB PO PRN (16:00)
[2025-05-28] MEDS ORDERED: ONDANSETRON HCL 4 MG/2 ML VIAL IV PRN (16:00)
[2025-05-28 16:15] VITALS: PULSE 45; RESP 15; O2SAT 96
[2025-05-28] MEDS: DEXTROSE (50%) 50ML SYRG IV ONE (17:01)
[2025-05-28] MEDS: ACCU-CHEK COMFORT CURVE STRIP VI SCH (17:07)
[2025-05-28] MEDS: InsuLIN REG 1unit/0.01ml Soln (100units/ml) SC SCH (17:07)
[2025-05-28] MEDS: D5W/SOD CHLO 0.9% 1,000 ML IV SCH (17:18)
--- NOTE | 2025-05-28 17:26 | DVHHP2 ---
History of Present Illness Reason for Visit: Generalized weakness History of Present Illness The patient is a 85-year-old female with past medical history diabetes mellitus and hypertension who presented to [facility] ED with complaint of generalized weakness. As reported by patient's daughter, patient was admitted at this hospital for 14 days due to kidney injury and discharged home on oral antibiotic regimen Cipro 2 days ago. Patient became very weak, associated with dizziness, getting worse today that prompted this visit. Patient was seen and evaluated in the ED, laboratory data shows WBC 5.7, hemoglobin 9.4, hematocrit 30.8, platelets 344, sodium 131, potassium 4.7, BUN 44, creatinine 2.74, glucose 50, calcium 8.1, urinalysis reports pending, blood pressure 147/57, heart rate 45, temperature 98.6 F, O2 saturation 99% on oxygen. Head CT revealing global brain atrophy and chronic ischemic changes without evidence of acute intrac ranial process. Patient was given D50 50 mL IV x1, normal saline IV bolus, please see medication orders section in the computer. On my assessment, patient denied chest pain, no headache, no dizziness, no diaphoresis, currently on oxygen, no diarrhea, no nausea, no vomiting, no fever, no chills. Patient was admitted for further evaluation and medical management. Past Medical History DM, HTN Past Surgical History Hemorrhoidectomy Family History Reviewed, noncontributory to the management of this case. Past Social History The patient lives at home, denies smoking, alcohol or illicit drugs abuse. Review of Systems Constitutional: Yes: Weakness; No: Fever, Chills, Sweats, Malaise, Other Eyes: No: Pain, Vision change, Conjunctivae inflammation, Eyelid inflammation, Other, Redness ENT: No: Ear pain, Ear discharge, Nose pain, Nose discharge, Nose congestion, Mouth pain, Mouth swelling, Throat pain, Throat swelling, Other Respiratory: No: Cough, Dry, Shortness of breath, SOB with excertion, Wheezing, Hemoptysis, Pleuritic Pain, Sputum, Wheezing, Other Cardiovascular: No: Chest Pain, Palpitations, Orthopnea, Paroxysmal Noc. Dyspnea, Edema, Lt Headedness, Other Gastrointestinal: No: Nausea, Vomiting, Abdominal Pain, Diarrhea, Constipation, Melena, Hematochezia, Other Genitourinary: No Dysuria, No Frequency, No Incontinence, No Hematuria, No Retention, No Other Musculoskeletal: No: other, neck pain, shoulder pain, arm pain, back pain, hand pain, leg pain, foot pain Skin: No: Rash, Lesions, Jaundice, Bruising, Other Neurological: Other (Dizziness); No: Weakness, Numbness, Incoordination, Change in speech, Confusion, Seizures Allergies: Coded Allergies: NO KNOWN ALLERGIES (Unverified , 05/11/25) Medications Current Medications Medications Dose Ordered Sig/Augustin Route Start Time Stop Time Status Last Admin Dose Admin Hydralazine HCl 10 mg Q6HP PRN IV 05/28/25 16:00 Dextrose/Sodium Chloride 1,000 ml @ 75 mls/hr [id number] IV 05/28/25 16:00 05/28/25 17:18 75 MLS/HR Diagnostic Test (Pha) 1 strip IQ4HR 05/28/25 16:00 05/28/25 17:07 1 STRIP Insulin Human Regular IQ4HR SC 05/28/25 16:00 Dextrose 50 ml UD PRN IV 05/28/25 16:00 Acetaminophen/ Hydrocodone Bitart 1 tab Q4HP PRN PO 05/28/25 16:00 Ondansetron HCl 4 mg Q4HP PRN IV 05/28/25 16:00 Docusate Sodium 100 mg BIDPRN PRN PO 05/28/25 16:00 Acetaminophen 650 mg Q6HP PRN PO 05/28/25 16:00 Exam Vital Signs Vital Signs Date Time Temp Pulse Resp B/P (MAP) Pulse Ox O2 Delivery O2 Flow Rate FiO2 05/28/25 15:47 43 14 114/49 (70) 95 05/28/25 12:28 98.6 98.6 General Appearance: Alert, Oriented X3, Cooperative, No acute distress HEENT: Atraumatic, PERRLA, EOMI, Mucous membr. moist/pink Respiratory: Normal air movement Cardiovascular: Regular rate, Normal S1, Normal S2, No murmurs Abdominal: Normal bowel sounds, Soft, No tenderness, No hepatospenomegaly, No masses Extremities: No clubbing, No cyanosis, No edema, Normal pulses, No tenderness/swelling Skin: No rashes, No significant lesion Neuro: Normal speech, Normal tone, Sensation intact, Cranial nerves 3-12 NL, Reflexes 2+, Other (Generalized weakness) Psych/Mental Status: Mental status NL, Mood NL Labs/Xrays Labs Test 05/28/25 13:05 05/28/25 12:32 Range/Units White Blood Count 5.7 4.4-10.8 10^3/uL Red Blood Count 3.21 L 4.0-5.20 10^6/uL Hemoglobin 9.4 L 12.2-16.2 g/dL Hematocrit 30.8 #L 36.0-46.0 % Mean Corpuscular Volume 96.0 # 80.0-100.0 fL Mean Corpuscular Hemoglobin 29.1 28.0-32.0 pg Mean Corpuscular Hemoglobin Concent 30.4 L 32.0-36.0 g/dL Red Cell Distribution Width 15.5 H 11.8-14.3 % Platelet Count 344 140-450 10^3/uL Mean Platelet Volume 6.8 L 6.9-10.8 fL Neutrophils (%) (Auto) 76.3 37.0-80.0 % Lymphocytes (%) (Auto) 14.6 10.0-50.0 % Monocytes (%) (Auto) 7.8 0.0-12.0 % Eosinophils (%) (Auto) 0.7 0.0-7.0 % Basophils (%) (Auto) 0.6 0.0-2.0 % Neutrophils # (Auto) 4.3 1.6-8.6 10 ^3/uL Lymphocytes # (Auto) 0.8 0.4-5.4 10 ^3/uL Monocytes # (Auto) 0.4 0-1.3 10 ^3/uL Eosinophils # (Auto) 0 0-0.8 10 ^3/uL Basophils # (Auto) 0 0-0.2 10 ^3/uL Nucleated Red Blood Cells 0.1 % Sodium Level 131 L 136-145 mmol/L Potassium Level 4.7 3.5-5.1 mmol/L Chloride Level 100 98-107 mmol/L Carbon Dioxide Level 20 20-31 mmol/L Anion Gap 11 5-15 Blood Urea Nitrogen 44 H 9-23 mg/dL Creatinine 2.74 H 0.550-1.02 mg/dL Glomerular Filtration Rate Calc 17 >90 mL/min BUN/Creatinine Ratio 16.1 10.0-20.0 Serum Glucose 50 L 74-106 mg/dL Lactic Acid Level 0.6 0.4-2.0 mmol/L Calcium Level 8.1 L 8.7-10.4 mg/dL PATIENT: NIA CONNORACCT: [id number] UNIT: [id number] : 1940 LOC: ER ROOM / BED: / AGE / SEX: 85 / F ADM STATUS: REG ER SERVICE 1231 ORDERING PHYSICIAN: SHERRY DE LA ROSA MD PROCEDURE(s): HWOCT - HEAD WITHOUT CONTRAST REASON: weakness ORDER NUMBER(s): [id number], ACCESSION NUMBER(s): [id number] EXAM: CT HEAD WITHOUT CONTRAST HISTORY: weakness COMPARISON: CT HEAD WITHOUT CONTRAST on DOS: 05/25/25 TECHNIQUE: Noncontrast axial CT images of the head were performed. Sagittal and coronal reformatted images were obtained. This CT exam was performed using 1 or more of the following dose reduction techniques: Automated exposure control, adjustment of the mA and/or kv according to patient size, or the use of iterative reconstruction techniques. Radiation Dose: CTDI volume is 48.66 mGy. Dose-length product is 778.54 mGy*cm FINDINGS: There is global brain atrophy. There is mild decreased attenuation in the periventricular white matter. No intracranial hemorrhage, mass, midline shift, hydrocephalus, or evidence of acute large vessel infarct. There is a mucous retention cyst in the left sphenoid sinus. The bilateral mastoid air cells and middle ear spaces are clear. No cranial fracture or scalp edema. IMPRESSION: Global brain atrophy and chronic ischemic changes without evidence of acute intracranial process. SEPSIS Sepsis Screen Date sepsis recognized/suspect: May 28, 2025 Time Sepsis recognized/suspect: 1228 Recent Procedure: No On Antibiotic Therapy: No Respiratory Rate >20: No Heart Rate >90: No Temp<36 C (96.8 F) or >38.3 C: No SBP <90 or MAP <65 mmHG: No New Acute Mental Status Change: No Is the patient on CPAP, BIPAP,: No Physician Orders Urinalysis (05/28/25 12:31) Heplock Iv (05/28/25 12:31) Senior Policy Associate (05/28/25 12:31) Blood Pressure (05/28/25 12:31) Pulse Oximetry (05/28/25 12:31) Head Without Contrast (05/28/25 12:31) Consistent Carb(Ccho)Diabetes (05/28/25 Dinner) Hydralazine Injection (Apresoline Inject (05/28/25 16:00) D5w/Sod Chlo 0.9% (D5w Ns 0.9%) (05/28/25 16:00) Glucose Blood (Accu-Chek Comfort Curve T (05/28/25 16:00) Insulin R (Human) (Insulin R) (05/28/25 16:00) Dextrose 50% Syringe (05/28/25 16:00) Allergies (05/28/25 15:49) Code Status (05/28/25 15:49) Oxygen Per Hour (05/28/25 15:49) Hydrocodone-Acet 5/325mg Tab ([place] 5/32 (05/28/25 16:00) Ondansetron Hcl (Zofran) (05/28/25 16:00) Docusate Sodium Capsule (Colace Capsule) (05/28/25 16:00) Fall Risk Precautions In Place QSHIFT (05/28/25 15:49) Complete Blood Count (05/29/25 04:00) Comprehensive Metabolic Panel (05/29/25 04:00) Condition: Serious (05/28/25 15:49) Acetaminophen Tablet (Tylenol Tablet) (05/28/25 16:00) Maintain Bed Rest (05/28/25 15:49) Sequential Compression Device (05/28/25 ) Admit (05/28/25 17:24) Nitroglycerin Sublingual (Ntrostat Subli (05/28/25 17:30) Morphine Sulfate Injection (05/28/25 17:30) Stat Ekg For Chest Pain (05/28/25 17:24) Notify Md Of Changes From Base (05/28/25 17:24) Image Scientist For 24 Hours (05/28/25 17:24) Emergency Dysrhythmia Protocol (05/28/25 17:24) Rhythm Strips Once Every Shift (05/28/25 17:24) Oxygen By Nasal Cannula (05/28/25 17:24) *[facility] (05/28/25 17:24) Vital Signs Date Time Temp Pulse Resp B/P (MAP) Pulse Ox O2 Delivery O2 Flow Rate FiO2 05/28/25 15:47 43 14 114/49 (70) 95 05/28/25 12:44 45 05/28/25 12:28 98.6 45 18 147/57 (87) 99 98.6 Laboratory Tests Test 05/28/25 13:05 Lactic Acid Level 0.6 mmol/L (0.4-2.0) White Blood Count 5.7 10^3/uL (4.4-10.8) Medications Medications Dose Ordered Sig/Augustin Route Start Time Stop Time Status Last Admin Dose Admin Dextrose 50 ml ONCE ONCE IV 05/28/25 17:00 05/28/25 17:01 DC 05/28/25 17:01 50 ML Dextrose/Sodium Chloride 1,000 ml @ 75 mls/hr [id number] IV 05/28/25 16:00 05/28/25 17:18 75 MLS/HR Diagnostic Test (Pha) 1 strip IQ4HR 05/28/25 16:00 05/28/25 17:07 1 STRIP Sodium Chloride 500 ml @ 500 mls/hr Q1H ONCE IV 05/28/25 12:45 05/28/25 13:44 DC 05/28/25 15:50 500 MLS/HR Assessment/Plan Assessment/Plan Generalized weakness UTI (urinary tract infection) Acute cystitis without hematuria Diabetes mellitus with hypoglycemia Acute on chronic renal failure Plan 1. Admit to telemetry unit 2. Breathing treatment 3. Pain control management 4. IV antibiotic management 5. Management of fluids and electrolytes 6. Consultation for Nephrology 7. Diagnostic test chest x-ray 8. DVT prophylaxis-on SCDs 9. Repeat labs CBC, CMP in a.m. 10. Home medication reviewed and reconciled 11. Continue with current medical management 12. Treatment plan discussed with patient/daughter and RN. Patient/daughter verbalized understanding. Plan discussed with: Patient, Other (RN) My Orders Orders - HEMANTH MCINTYRE DNP Procedure Category Date Status Time Consistent DIET 05/28/25 Transmitted Carb(Ccho)Diabetes Dinner Hydralazine Injection PHA 05/28/25 In Process (Apresoline Inject 16:00 D5w/Sod Chlo 0.9% PHA 05/28/25 In Process (D5w Ns 0.9%) 16:00 Glucose Blood PHA 05/28/25 In Process (Accu-Chek Comfort 16:00 Insulin R (Human) PHA 05/28/25 In Process (Insulin R) 16:00 Dextrose 50% Syringe PHA 05/28/25 In Process 16:00 Allergies LLUVIA 05/28/25 In Process 15:49 Code Status CODE 05/28/25 Transmitted 15:49 Oxygen Per Hour RT 05/28/25 Transmitted 15:49 Hydrocodone-Acet PHA 05/28/25 In Process 5/325mg Tab ([place] 16:00 Ondansetron Hcl PHA 05/28/25 In Process (Zofran) 16:00 Docusate Sodium PHA 05/28/25 In Process Capsule (Colace 16:00 Fall Risk Precautions LLUVIA 05/28/[address] 15:49 Complete Blood Count LAB 05/29/25 Verified 04:00 Comprehensive LAB 05/29/25 Verified Metabolic Panel 04:00 Condition: Serious LLUVIA 05/28/25 In Process 15:49 Acetaminophen Tablet PHA 05/28/25 In Process (Tylenol Tablet) 16:00 Maintain Bed Rest LLUVIA 05/28/25 In Process 15:49 Sequential LLUVIA 05/28/25 In Process Compression Device Admit ADMIT 05/28/25 Verified 17:24 Nitroglycerin [facility] 05/28/25 Verified Sublingual (Ntrostat 17:30 Morphine Sulfate PHA 05/28/25 Verified Injection 17:30 Stat Ekg For Chest [facility] 05/28/25 Verified Pain 17:24 Notify Of Changes [facility] 05/28/25 Verified From Base 17:24 Image Scientist For [facility] 05/28/25 Verified 24 Hours 17:24 Emergency Dysrhythmia [facility] 05/28/25 Verified Protocol 17:24 Rhythm Strips Once [facility] 05/28/25 Verified Every Shift 17:24 Oxygen By Nasal RT 05/28/25 Verified Cannula 17:24 *[facility] CONS 05/28/25 Verified -[place] 17:24 Problem List: (1) Generalized weakness (2) UTI (urinary tract infection) (3) Acute cystitis without hematuria (4) Diabetes mellitus with hypoglycemia (5) Acute on chronic renal failure Date of Service: May 28, 2025 Billing Provider: HEMANTH MCINTYRE DNP Common Visit Codes: [id number] INP/OBS CARE (HIGH) HEMANTH MCINTYRE DNP May 28, 2025 17:25
[2025-05-28] MEDS ORDERED: NITROGLYCERIN 0.4 MG SL TAB SL PRN (17:30)
[2025-05-28] MEDS ORDERED: MORPHINE SULFATE INJ 2 MG/ml SYRG IV PRN (17:30)
[2025-05-28 20:30] VITALS: PULSE 53; RESP 15; O2SAT 99
[2025-05-29] MEDS: DEXTROSE (50%) 50ML SYRG IV PRN (00:49)
[2025-05-29 04:10] LABS: Nucleated Red Blood Cells % 0.1 %
[2025-05-29 04:12] LABS: Hematocrit 22.7 % (36.0-46.0); Hemoglobin 7.6 g/dL (12.2-16.2); Mean Corpuscular Hemoglobin 30.0 pg (28.0-32.0); Mean Corpuscular Volume 90.3 fL (80.0-100.0)
[2025-05-29 04:34] LABS: Alanine Aminotransferase 12 U/L (7-40); Albumin 3.4 g/dL (3.2-4.8); Alkaline Phosphatase 84 U/L (46-116); Anion Gap 12 (5-15); BUN/Creatinine Ratio 14.2 (10.0-20.0); Carbon Dioxide 21 mmol/L (20-31); Chloride 102 mmol/L (98-107); Glucose 85 mg/dL (74-106); Potassium 4.2 mmol/L (3.5-5.1); Total Protein 5.8 g/dL (5.7-8.2)
[2025-05-29 04:41] LABS: Bilirubin, Total 0.2 mg/dL (0.2-1.0); Blood Urea Nitrogen 37 mg/dL (9-23); Calcium 8.4 mg/dL (8.7-10.4); Sodium 135 mmol/L (136-145)
--- NOTE | 2025-05-29 13:36 | DVHCONRES ---
Date Seen: May 29, 2025 Resident Creating Document: SABRINA CANALES RESIDENT Referring Physician FRANCISCO JAVIER ROMEO History of Present Illness This is a 85-year-old female with past medical history of diabetes mellitus hypertension who was recently seen in this facility for bilateral ureteral stent placement, she presented to the ER with a chief complaint of generalized dizziness. Per chart review and nurse, daughter found that the patient has a hypoglycemic and has a generalized weakness, dizziness. Therefore she brought her to the ER. Patient is A&O x3, denies any symptoms at this time during my evaluation. Head CT was completed in the arrival which showed chronic ischemic changes. Patient is urinary incontinent, Wang is being placed. Patient was hypoglycemic on arrival and has been persistently hypoglycemic requiring D50 pushes and D5 NS. Nephrology consulted for acute on chronic renal failure Patient seen and examined at the bedside. Urine studies pending. Allergies: Coded Allergies: NO KNOWN ALLERGIES (Unverified , 05/11/25) Home Meds Active Scripts Ciprofloxacin Hcl (Ciprofloxacin Hcl) 500 Mg Tab, 0.5 TAB PO BID for 10 Days, #10 TAB Prov:SANTIAGO DYSON FISHER 05/25/25 Current Medications Current Medications Medications (Trade) Dose Ordered Sig/Augustin Route PRN Reason Start Time Stop Time Status Last Admin Hydralazine HCl (Apresoline Injection) 10 mg Q6HP PRN IV SBP>150 05/28/25 16:00 Dextrose/Sodium Chloride 1,000 ml @ 75 mls/hr [id number] IV 05/28/25 16:00 05/29/25 05:20 Diagnostic Test (Pha) (Accu-Chek Comfort Curve T) 1 strip IQ4HR 05/28/25 16:00 05/29/25 12:02 Insulin Human Regular (InsuLIN R) IQ4HR SC 05/28/25 16:00 Dextrose 50 ml UD PRN IV Blood Sugar LESS THAN 60 05/28/25 16:00 05/29/25 00:49 Acetaminophen/ Hydrocodone Bitart ([place] 5/325MG Tab) 1 tab Q4HP PRN PO MODERATE PAIN (4-6 PAIN SCALE) 05/28/25 16:00 Ondansetron HCl (Zofran) 4 mg Q4HP PRN IV NAUSEA / VOMITING 05/28/25 16:00 Docusate Sodium (Colace Capsule) 100 mg BIDPRN PRN PO FOR CONSTIPATION 05/28/25 16:00 Acetaminophen (Tylenol Tablet) 650 mg Q6HP PRN PO PAIN SCALE 1-3 OR TEMP>100.4 05/28/25 16:00 Nitroglycerin (Ntrostat Sublingual) 0.4 mg Q5MINP PRN SL FOR CHEST PAIN 05/28/25 17:30 Morphine Sulfate 2 mg Q30M PRN IV FOR CHEST PAIN 05/28/25 17:30 Vital Signs Vital Signs Date Time Temp Pulse Resp B/P (MAP) Pulse Ox O2 Delivery O2 Flow Rate FiO2 05/29/25 12:00 58 15 156/97 (116) 100 05/29/25 08:00 Nasal Cannula* 2 28 05/28/25 16:15 97.3 97.3 Physical Exam Patient lying in bed, in no acute distress General: Well-built, afebrile, palor, mucosae are moist Cardiovascular: Regular S1 and S2. No murmurs, gallops or rubs. No JVD elevation. No pedal edema Respiratory: Bilateral decreased air entry, on 2 L NC supplementation Abdomen: Soft, nontender, nondistended, normoactive bowel sounds, no rebound tenderness, no organomegaly, no masses Genitourinary: Deferred MSK/skin: Mobilizes 4 limbs. Skin is dry and warm Neurological: No motor, no sensitive deficits, normal speech. Pupils are isocoric and reactive. Psych/Mental Status: A/Ox3 Labs/Diagnostic Data Labs Test 05/29/25 11:32 05/29/25 03:22 05/28/25 13:05 05/28/25 12:32 Range/Units POC Glucose 140 H 70-106 mg/dl White Blood Count 6.7 4.4-10.8 10^3/uL Red Blood Count 2.52 L 4.0-5.20 10^6/uL Hemoglobin 7.6 #L 12.2-16.2 g/dL Hematocrit 22.7 #L 36.0-46.0 % Mean Corpuscular Volume 90.3 # 80.0-100.0 fL Mean Corpuscular Hemoglobin 30.0 28.0-32.0 pg Mean Corpuscular Hemoglobin Concent 33.2 32.0-36.0 g/dL Red Cell Distribution Width 15.1 H 11.8-14.3 % Platelet Count 278 140-450 10^3/uL Mean Platelet Volume 7.6 6.9-10.8 fL Neutrophils (%) (Auto) 66.8 37.0-80.0 % Lymphocytes (%) (Auto) 18.3 10.0-50.0 % Monocytes (%) (Auto) 9.5 0.0-12.0 % Eosinophils (%) (Auto) 4.4 0.0-7.0 % Basophils (%) (Auto) 1.0 0.0-2.0 % Neutrophils # (Auto) 4.5 1.6-8.6 10 ^3/uL Lymphocytes # (Auto) 1.2 0.4-5.4 10 ^3/uL Monocytes # (Auto) 0.6 0-1.3 10 ^3/uL Eosinophils # (Auto) 0.3 0-0.8 10 ^3/uL Basophils # (Auto) 0.1 0-0.2 10 ^3/uL Nucleated Red Blood Cells 0.1 % Sodium Level 135 L 136-145 mmol/L Potassium Level 4.2 3.5-5.1 mmol/L Chloride Level 102 98-107 mmol/L Carbon Dioxide Level 21 20-31 mmol/L Anion Gap 12 5-15 Blood Urea Nitrogen 37 H 9-23 mg/dL Creatinine 2.61 H 0.550-1.02 mg/dL Glomerular Filtration Rate Calc 18 >90 mL/min BUN/Creatinine Ratio 14.2 10.0-20.0 Serum Glucose 85 74-106 mg/dL Calcium Level 8.4 L 8.7-10.4 mg/dL Total Bilirubin 0.2 0.2-1.0 mg/dL Aspartate Amino Transferase (AST) 30 13-40 U/L Alanine Aminotransferase (ALT) 12 7-40 U/L Alkaline Phosphatase 84 46-116 U/L Total Protein 5.8 5.7-8.2 g/dL Albumin 3.4 3.2-4.8 g/dL Lactic Acid Level 0.6 0.4-2.0 mmol/L Assessment Acute kidney injury superimposed on CKD Status post bilateral ureteral stent placement Status post retroperitoneal abscess drainage 05/14/2025 Generalized weakness and hypoglycemia Sinus bradycardia Anemia likely normocytic Diabetes mellitus type Hypertension Chronic hyponatremia History of ESBL UTI Plan: Given the hypoglycemic episodes, continue D5W 5% at 50 mL/hour. Follow up with urine electrolytes Follow up with iron panel Strict I&Os Renal and carbohydrate diet We will continue to follow up Plan discussed with patient, nurse in which all questions have been answered Case discussed with Dr. Stephen Plan discussed with: Patient, Other (Nurse) SABRINA CANALES RESIDENT May 29, 2025 13:36
[2025-05-29 14:53] LABS: Urine Protein, UAD 2+ (Negative)
[2025-05-29 14:54] LABS: Iron 28.0 ug/dL (50-170)
[2025-05-29 14:56] LABS: Total Iron Binding Capacity 256.0 ug/dL (250-425)
[2025-05-29] MEDS: D5W 5% 1,000 ML IV SCH (15:09)
[2025-05-29 15:10] LABS: Protein, Urine 150.4 mg/dL (1-14)
--- NOTE | 2025-05-29 15:32 | DVHPN2 ---
Subjective Patient denies any symptoms Reviewed: Care Plan, H&P, Labs, Medications, Previous Orders Changes from previous H/P or p: No Changes General: Per HPI Eyes: No Pain, No Vision change, No Conjunctivae inflammation, No Eyelid inflammation, No Other, No Redness ENT: No Ear pain, No Ear discharge, No Nose pain, No Nose discharge, No Nose congestion, No Mouth pain, No Mouth swelling, No Throat pain, No Throat swelling, No Other Cardiovascular: No Chest Pain, No Palpitations, No Orthopnea, No Paroxysmal Noc. Dyspnea, No Edema, No Lt Headedness, No Other Respiratory: No Cough, No Dry, No Shortness of breath, No SOB with excertion, No Wheezing, No Hemoptysis, No Pleuritic Pain, No Sputum, No Other Gastrointestinal: No Nausea, No Vomiting, No Abdominal Pain, No Diarrhea, No Constipation, No Melena, No Hematochezia, No Other Genitourinary: No Dysuria, No Frequency, No Incontinence, No Hematuria, No Retention, No Other Musculoskeletal: No other, No neck pain, No shoulder pain, No arm pain, No back pain, No hand pain, No leg pain, No foot pain Skin: No Rash, No Lesions, No Jaundice, No Bruising, No Other Objective Vitals Vital Signs Date Time Temp Pulse Resp B/P (MAP) Pulse Ox O2 Delivery O2 Flow Rate FiO2 05/29/25 12:00 58 15 156/97 (116) 100 05/29/25 08:00 Nasal Cannula* 2 28 05/28/25 16:15 97.3 97.3 Intake/Output Intake and Output 05/29/25 07:00 Intake Total 650 ml Balance 650 ml Intake IV Total 650 ml General Appearance: Alert, Oriented X3, Cooperative, No acute distress HEENT: Atraumatic, PERRLA Cardiovascular: Normal S1, Normal S2 Abdomen: Normal bowel sounds, Soft, No tenderness, No hepatospenomegaly Neuro: Normal speech Psych/Mental Status: Mental status NL, Mood NL Medications Current Medications Medications Dose Ordered Sig/Augustin Route Start Time Stop Time Status Last Admin Dose Admin Hydralazine HCl 10 mg Q6HP PRN IV 05/28/25 16:00 Diagnostic Test (Pha) 1 strip IQ4HR 05/28/25 16:00 05/29/25 12:02 1 STRIP Insulin Human Regular IQ4HR SC 05/28/25 16:00 Dextrose 50 ml UD PRN IV 05/28/25 16:00 05/29/25 00:49 50 ML Acetaminophen/ Hydrocodone Bitart 1 tab Q4HP PRN PO 05/28/25 16:00 Ondansetron HCl 4 mg Q4HP PRN IV 05/28/25 16:00 Docusate Sodium 100 mg BIDPRN PRN PO 05/28/25 16:00 Acetaminophen 650 mg Q6HP PRN PO 05/28/25 16:00 Nitroglycerin 0.4 mg Q5MINP PRN SL 05/28/25 17:30 Morphine Sulfate 2 mg Q30M PRN IV 05/28/25 17:30 Dextrose 1,000 ml @ 50 mls/hr Q20H IV 05/29/25 14:30 05/29/25 15:09 50 MLS/HR Laboratory Results Laboratory Tests 05/29/25 03:22 Chemistry Test 05/29/25 03:22 Albumin 3.4 g/dL (3.2-4.8) Calcium Level 8.4 mg/dL (8.7-10.4) L Total Protein 5.8 g/dL (5.7-8.2) Cardiac Markers Test 05/29/25 13:50 B-Type Natriuretic Peptide 295.73 pg/mL (0-100) LFT Test 05/29/25 03:22 Alanine Aminotransferase (ALT) 12 U/L (7-40) Alkaline Phosphatase 84 U/L (46-116) Aspartate Amino Transferase (AST) 30 U/L (13-40) Total Bilirubin 0.2 mg/dL (0.2-1.0) Urinalysis Test 05/29/25 14:31 Urine Color Colorless (Yellow) Urine Clarity Clear (Clear) Urine pH 6.5 (5.0-9.0) Urine Specific [place] 1.005 (1.001-1.035) Urine Protein 2+ (Negative) H Urine Ketones Negative (Negative) Urine Blood 2+ /uL (Negative) H Urine Nitrite Negative (Negative) Urine Bilirubin Negative (Negative) Urine Urobilinogen Normal mg/dL (Negative) Urine Leukocyte Esterase 3+ /uL (Negative) Urine RBC 3 /hpf (0 - 4) Urine Microscopic WBC 31 /HPF (0-5) H Urine Squamous Epithelial Cells Few /hpf (<5) Urine Bacteria /hpf (None Seen) Urine Osmolality Pending Urine Creatinine 27.67 mg/dL (30.0-125.0) L Urine Protein/Creatinine Ratio 5.44 Urine Sodium 51 mmol/L (40-220) Urine Glucose Trace mg/dL (Normal) Urine Total Protein 150.4 mg/dL (1-14) H Labs and/or images reviewed: Labs reviewed by me, Image(s) reviewed by me Assessment/Plan Assessment/Plan Impression: -metabolic encephalopathy -hypoglycemia -bilateral hydroureter nephrosis, status post bilateral stent placement -diabetes mellitus -primary hypertension -CKD stage 4 -complicated cystitis with recent treatment for ESBL Plan: -continue dextrose infusion -continue Accu-Cheks q.4 hours -nephrology consultation: Recommendations reviewed. Currently patient is GFR and creatinine is at her baseline -repeat labs in a.m. -discussed plan of care with the patient's family once nursing placed his contact information in chart Total time spent with patient discussing and formulating plan of care: 35 minutes. This medical document was created using an electronic medical record system with [employer] dictation system. Although this document has been carefully reviewed, there may still be some phonetic and typographical errors. These areas are purely typographical due to imperfections of the software programs, and do not reflect any compromise in the patient's medical care. Plan discussed with: Patient, Other (RN) Date of Service: May 29, 2025 Billing Provider: SANTIAGO DYSON NP Common Visit Codes: [id number] INP/OBS CARE(HIGH) SANTIAGO DYSON NP May 29, 2025 15:32
[2025-05-29 19:09] LABS: COVID19 ANTIGEN SOFIA FIA NEGATIVE (NEGATIVE)
[2025-05-29 19:35] VITALS: PULSE 71; RESP 18; O2SAT 95
[2025-05-29 19:54] VITALS: BP 160/71; PULSE 71; RESP 18; TEMP 99.4; O2SAT 96
[2025-05-29 21:00] VITALS: BP 154/73; PULSE 68; RESP 17; RESP 18; TEMP 99.2; O2SAT 96
[2025-05-29] MEDS: ERGOCALCIFEROL 50,000 UNIT(1.25MG) CAP PO SCH (21:39)
[2025-05-29] MEDS: hydrALAZINE HCL 20 MG/ML VL IV PRN (23:24)
[2025-05-29] MEDS: IRON SUCROSE COMPLEX 110 ML IV SCH (23:25)
[2025-05-30 01:00] VITALS: BP 143/66; PULSE 69; RESP 18; TEMP 98.2; O2SAT 96
[2025-05-30 05:00] VITALS: BP 102/66; PULSE 63; RESP 17; TEMP 98.9; O2SAT 96
[2025-05-30 07:07] LABS: Anion Gap 9 (5-15); Carbon Dioxide 23 mmol/L (20-31); Potassium 4.7 mmol/L (3.5-5.1); Sodium 140 mmol/L (136-145)
[2025-05-30 07:10] LABS: Calcium 8.4 mg/dL (8.7-10.4); Chloride 108 mmol/L (98-107)
[2025-05-30 07:13] LABS: BUN/Creatinine Ratio 16.1 (10.0-20.0)
[2025-05-30 07:18] LABS: Hematocrit 22.3 % (36.0-46.0); Hemoglobin 7.5 g/dL (12.2-16.2); Mean Corpuscular Hemoglobin 30.5 pg (28.0-32.0); Mean Corpuscular Volume 90.5 fL (80.0-100.0); Nucleated Red Blood Cells % 0.1 %
[2025-05-30 07:25] LABS: Blood Urea Nitrogen 38 mg/dL (9-23); Glucose 117 mg/dL (74-106)
[2025-05-30 08:00] VITALS: PULSE 57; PULSE 81; RESP 18; O2SAT 93
[2025-05-30] MEDS ORDERED: METF-370 PO (08:59)
[2025-05-30 09:00] VITALS: BP 160/67; PULSE 67; RESP 16; TEMP 98.1; O2SAT 91
--- NOTE | 2025-05-30 09:07 | DVHDS2 ---
Discharge Summary Date of Admission May 28, 2025 at 17:24 Date of Discharge: May 30, 2025 Admitting Diagnosis Generalized weakness Labs/Diagnostic Data: Laboratory Results Test 05/30/25 06:25 05/30/25 04:24 05/29/25 18:40 05/29/25 14:31 White Blood Count 8.2 10^3/uL (4.4-10.8) Red Blood Count 2.46 10^6/uL (4.0-5.20) Hemoglobin 7.5 g/dL (12.2-16.2) Hematocrit 22.3 % (36.0-46.0) Mean Corpuscular Volume 90.5 fL (80.0-100.0) Mean Corpuscular Hemoglobin 30.5 pg (28.0-32.0) Mean Corpuscular Hemoglobin Concent 33.7 g/dL (32.0-36.0) Red Cell Distribution Width 15.4 % (11.8-14.3) Platelet Count 254 10^3/uL (140-450) Mean Platelet Volume 8.2 fL (6.9-10.8) Neutrophils (%) (Auto) 56.0 % (37.0-80.0) Lymphocytes (%) (Auto) 22.1 % (10.0-50.0) Monocytes (%) (Auto) 13.7 % (0.0-12.0) Eosinophils (%) (Auto) 5.9 % (0.0-7.0) Basophils (%) (Auto) 2.3 % (0.0-2.0) Neutrophils # (Auto) 4.6 10 ^3/uL (1.6-8.6) Lymphocytes # (Auto) 1.8 10 ^3/uL (0.4-5.4) Monocytes # (Auto) 1.1 10 ^3/uL (0-1.3) Eosinophils # (Auto) 0.5 10 ^3/uL (0-0.8) Basophils # (Auto) 0.2 10 ^3/uL (0-0.2) Nucleated Red Blood Cells 0.1 % Sodium Level 140 mmol/L (136-145) Potassium Level 4.7 mmol/L (3.5-5.1) Chloride Level 108 mmol/L (98-107) Carbon Dioxide Level 23 mmol/L (20-31) Anion Gap 9 (5-15) Blood Urea Nitrogen 38 mg/dL (9-23) Creatinine 2.36 mg/dL (0.550-1.02) Glomerular Filtration Rate Calc 20 mL/min (>90) BUN/Creatinine Ratio 16.1 (10.0-20.0) Serum Glucose 117 mg/dL (74-106) Calcium Level 8.4 mg/dL (8.7-10.4) Phosphorus Level 4.9 mg/dL (2.4-5.1) POC Glucose 121 mg/dl (70-106) Influenza Type A Antigen Negative (Negative) Influenza Type B Antigen Negative (Negative) SARS-CoV-2 Antigen (Rapid) Negative (NEGATIVE) Urine Color Colorless (Yellow) Urine Clarity Clear (Clear) Urine pH 6.5 (5.0-9.0) Urine Specific [place] 1.005 (1.001-1.035) Urine Protein 2+ (Negative) Urine Ketones Negative (Negative) Urine Blood 2+ /uL (Negative) Urine Nitrite Negative (Negative) Urine Bilirubin Negative (Negative) Urine Urobilinogen Normal mg/dL (Negative) Urine Leukocyte Esterase 3+ /uL (Negative) Urine RBC 3 /hpf (0 - 4) Urine Microscopic WBC 31 /HPF (0-5) Urine Squamous Epithelial Cells Few /hpf (<5) Urine Bacteria /hpf (None Seen) Urine Osmolality 181 mOsm/kg Urine Creatinine 27.67 mg/dL (30.0-125.0) Urine Protein/Creatinine Ratio 5.44 Urine Sodium 51 mmol/L (40-220) Urine Glucose Trace mg/dL (Normal) Urine Total Protein 150.4 mg/dL (1-14) Test 05/29/25 13:50 05/29/25 03:22 05/28/25 13:05 Serum Osmolality 302 mOsm/kg (278-298) Iron Level 28 ug/dL (50-170) Total Iron Binding Capacity 256 ug/dL (250-425) Percent Iron Saturation 10.9 % (15-50) Ferritin 179.0 ng/mL (10-291) B-Type Natriuretic Peptide 295.73 pg/mL (0-100) Vitamin D 25-Hydroxy 9.6 ng/mL (30.0-100) Total Bilirubin 0.2 mg/dL (0.2-1.0) Aspartate Amino Transferase (AST) 30 U/L (13-40) Alanine Aminotransferase (ALT) 12 U/L (7-40) Alkaline Phosphatase 84 U/L (46-116) Total Protein 5.8 g/dL (5.7-8.2) Albumin 3.4 g/dL (3.2-4.8) Parathyroid Hormone (Intact) 223.4 pg/mL (18.4-80.1) Lactic Acid Level 0.6 mmol/L (0.4-2.0) Other Laboratory Tests 05/30/25 06:25 Brief Hx & Hospital Course: History of Present Illness The patient is a 85-year-old female with past medical history diabetes mellitus and hypertension who presented to [facility] ED with complaint of generalized weakness. As reported by patient's daughter, patient was admitted at this hospital for 14 days due to kidney injury and discharged home on oral antibiotic regimen Cipro 2 days ago. Patient became very weak, associated with dizziness, getting worse today that prompted this visit. Patient was seen and evaluated in the ED, laboratory data shows WBC 5.7, hemoglobin 9.4, hematocrit 30.8, platelets 344, sodium 131, potassium 4.7, BUN 44, creatinine 2.74, glucose 50, calcium 8.1, urinalysis reports pending, blood pressure 147/57, heart rate 45, temperature 98.6 F, O2 saturation 99% on oxygen. Head CT revealing global brain atrophy and chronic ischemic changes without evidence of acute intracranial process. Patient was given D50 50 mL IV x1, normal saline IV bolus, please see medication orders section in the computer. On my assessment, patient denied chest pain, no headache, no dizziness, no diaphoresis, currently on oxygen, no diarrhea, no nausea, no vomiting, no fever, no chills. Patient was admitted for further evaluation and medical management. Course of hospitalization: Patient's blood sugars remained to be hypoglycemic. Consults/Reason for consult Nephrology: Chronic kidney disease Condition at Discharge: Poor Final Diagnosis/Problems List Metabolic encephalopathy secondary to hypoglycemia Secondary diagnosis -hypoglycemia -bilateral hydroureter nephrosis, status post bilateral stent placement -diabetes mellitus -primary hypertension -CKD stage 4 -complicated cystitis with recent treatment for ESBL Discharge Disposition: Home Discharge Instruct/Medications Diet: Consistent carbohydrate Activity: No Restrictions, As Tolerated Follow Up/Referral: Discharge Clinic in one week Medications: Continue all previous home medications. Previous diabetic medications. Metformin 250 mg p.o. b.i.d. Scheduled Ciprofloxacin Hcl (Ciprofloxacin Hcl), 0.5 TAB PO BID Metformin Hydrochloride (Metformin Hcl), 0.5 TAB PO BID 36 Discharge Statement: "Patient was advised to return to the ER or call 911 if any headaches, dizziness, shortness of breath, chest pain, abdominal pain, bleeding, fevers, or worsening of medical condition. Patient was counseled about treatment plan, medications, possible side effects, patientverbalized understanding. All questions were answered to the best of my ability. This discharge took greater then 30 minutes in planning, reviewing documentation, counseling the patient, and discussing with other team members." ASSESSMENT ASSESSMENT Assessment Metabolic encephalopathy secondary to hypoglycemia Date of Service: May 30, 2025 Billing Provider: SANTIAGO DYSON NP Common Visit Codes: 31031-KFC/OBS DISCH DAY >30min SANTIAGO DYSON NP May 30, 2025 09:07
[2025-05-30] MEDS: CIPROFLOXACIN HCL 500 MG TAB PO ONE (09:22)
[2025-05-30] MEDS ORDERED: ERGOCALCIFEROL 50,000 UNIT(1.25MG) CAP PO SCH (09:30)
[2025-05-30] MEDS: EPOETIN ALFA-EPBX 4,000 UNIT/ML VIAL SC ONE (09:30)
[2025-05-30] MEDS ORDERED: ERGO1CAP23 PO (10:30)
[2025-05-30 11:05] VITALS: BP 162/86; PULSE 67; RESP 16; TEMP 98; O2SAT 91
[2025-05-30] MEDS ORDERED: CIPROFLOXACIN HCL 500 MG TAB PO SCH (22:00)
== END 2025-05-30 12:30 | disposition home or self-care (01) | DRG 420 ==
LOC: ER 12:00 → OVERFLOW 17:24 → CENTRAL 05-29 20:49
PROVIDERS: ADMIT Nurse Practitioner Acute Care; ATTEND Nurse Practitioner Acute Care
DX: E11.649 Type 2 diabetes mellitus with hypoglycemia without coma (principal); N17.0 Acute kidney failure with tubular necrosis; G93.41 Metabolic encephalopathy; E87.1 Hypo-osmolality and hyponatremia; D64.9 Anemia, unspecified; E11.22 Type 2 diabetes mellitus with diabetic chronic kidney disease; G31.9 Degenerative disease of nervous system, unspecified; N30.00 Acute cystitis without hematuria; N18.4 Chronic kidney disease, stage 4 (severe); Z20.822 Contact with and (suspected) exposure to COVID-19; I12.9 Hypertensive chronic kidney disease with stage 1 through stage 4 chronic kidney disease, or unspecified chronic kidney disease; R00.1 Bradycardia, unspecified
CPT/HCPCS: 36415; 70450; 80048; 80053; 81001; 82306; 82570; 82728; 82962; 83540; 83550; 83605; 83880; 83930; 83935; 83970; 84100; 84156; 84300; 85025; 87081; 87426; 87804; 93005; 99291; G0378; J1756; J1815